=== PATIENT | female | born 1955 | race Caucasian/White ===

== ENCOUNTER 2020-07-26 10:48 | Outpatient (REF) | payer MEDICARE, SELFPAY ==
[2020-07-26 12:30] LABS: Alanine Aminotransferase 20 U/L (0-31); Albumin Level 4.3 g/dL (3.5-5.0); Alkaline Phosphatase 72 U/L (39-117); Anion Gap 11 (12-20); Aspartate Amino Transferase 16 U/L (5-31); Bilirubin Total 0.4 mg/dL (0.0-1.0); Blood Urea Nitrogen 21 mg/dL (9-16); Calcium 9.3 mg/dL (8.4-10.2); Carbon Dioxide 27 mmol/L (22-29); Chloride 107 mmol/L (96-108); Cholesterol 193 mg/dL; Estimated Glomerular Filt Rate > 60; Glucose Fasting 123 mg/dL (60-99); HDL Cholesterol 41 mg/dL; LDL Cholesterol Calculated 105 mg/dl; Potassium 4.5 mmol/L (3.3-5.1); Sodium 140 mmol/L (135-145); Total Protein 7.1 g/dL (6.5-8.0); Triglycerides 239 mg/dL
== END 2020-07-26 10:49 | disposition home or self-care (01) ==
LOC: HO.LAB 10:48
PROVIDERS: PCP Internal Medicine; Visit Provider Internal Medicine
DX: I10 Essential (primary) hypertension (principal); E78.5 Hyperlipidemia, unspecified
CPT/HCPCS: 36415; 80053; 80061

== ENCOUNTER 2020-11-14 08:15 | Outpatient (REF) | payer MEDICARE, SELFPAY ==
[2020-11-14 08:45] LABS: MANUAL DIFF FLAG NO
[2020-11-14 08:49] LABS: Basophils Absolute Auto 0.1 X10*3/uL (0.0-0.2); Eosinophils Absolute Auto 0.6 X10*3/uL (0.0-0.4); Eosinophils Percent Auto 7.3 % (0-4); Hematocrit 39.3 % (37-47); Hemoglobin 12.8 g/dl (12.0-16.0); Imm Gran Abs Auto 0.01 X10*3/uL (0.00-0.03); Imm Gran Pct Auto 0.1 % (0.0-0.4); Lymphocytes Absolute Auto 2.4 X10*3/uL (1.2-4.9); Lymphocytes Percent Auto 29.6 % (20-40); Mean Corpuscular HGB Conc 32.6 g/dl (31.0-35.0); Mean Corpuscular Hemoglobin 28.2 pg (27.0-33.0); Mean Corpuscular Volume 86.6 fL (80-98); Mean Platelet Volume 10.5 fL (9.4-12.3); Monocytes Absolute Auto 0.5 X10*3/uL (0.1-1.2); Monocytes Percent Auto 6.4 % (2-11); Neutrophils Absolute Auto 4.4 X10*3/uL (2.0-8.3); Neutrophils Percent Auto 55.6 % (45-73); Platelet Count 222 X10*3/uL (160-400); Red Blood Count 4.54 X10*6/uL (4.20-5.50); Red Cell Distribution Width 13.3 % (11.0-16.0)
[2020-11-14 09:17] LABS: Alanine Aminotransferase 16 U/L (0-31); Albumin Level 4.2 g/dL (3.5-5.0); Alkaline Phosphatase 69 U/L (39-117); Anion Gap 11 (12-20); Aspartate Amino Transferase 15 U/L (5-31); Bilirubin Total 0.5 mg/dL (0.0-1.0); Blood Urea Nitrogen 21 mg/dL (9-16); Calcium 9.6 mg/dL (8.4-10.2); Carbon Dioxide 25 mmol/L (22-29); Chloride 108 mmol/L (96-108); Cholesterol 162 mg/dL; Estimated Glomerular Filt Rate > 60; Glucose Fasting 118 mg/dL (60-99); HDL Cholesterol 39 mg/dL; LDL Cholesterol Calculated 80 mg/dl; Potassium 4.3 mmol/L (3.3-5.1); Sodium 140 mmol/L (135-145); Triglycerides 219 mg/dL
[2020-11-14 09:44] LABS: Folate 17.2 ng/mL (> or = 4.0); Vitamin B12 840 pg/mL (200-900)
[2020-11-23 17:16] LABS: Vitamin D 25-OH, D2 <4 ng/mL; Vitamin D 25-OH, D3 30 ng/mL; Vitamin D 25-OH, Total 30 ng/mL (30-100)
== END 2020-11-14 08:16 | disposition home or self-care (01) ==
LOC: HO.LAB 08:15
PROVIDERS: PCP Internal Medicine; Visit Provider Internal Medicine
DX: E78.1 Pure hyperglyceridemia (principal); E78.5 Hyperlipidemia, unspecified; E55.9 Vitamin D deficiency, unspecified; E53.8 Deficiency of other specified B group vitamins; I10 Essential (primary) hypertension
CPT/HCPCS: 36415; 80053; 80061; 82306; 82607; 82746; 85025

== ENCOUNTER 2021-01-02 09:10 | Outpatient (REF) | payer MEDICARE, SELFPAY ==
[2021-01-04 16:22] LABS: HPV mRNA E6/E7 rflx Not Detected (Not Detected)
== END 2021-01-02 09:11 | disposition home or self-care (01) ==
LOC: HO.LAB 09:10
PROVIDERS: PCP Internal Medicine; Visit Provider Advanced Practice Midwife
DX: Z01.419 Encounter for gynecological examination (general) (routine) without abnormal findings (principal); Z11.51 Encounter for screening for human papillomavirus (HPV); N88.9 Noninflammatory disorder of cervix uteri, unspecified; N81.9 Female genital prolapse, unspecified; R32 Unspecified urinary incontinence; R15.9 Full incontinence of feces
CPT/HCPCS: 87624; 88142

== ENCOUNTER 2021-02-22 13:43 | Outpatient (REF) | payer MEDICARE, SELFPAY ==
--- NOTE | ~2021-02-22 | MM_ITS ---
EXAMINATION: MM SCREENING DIGITAL BREAST TOMOSYNTHESIS, BILATERAL CLINICAL INFORMATION: Screening. Asymptomatic. The lifetime risk of breast cancer based on the Tyrer-Cuzick Model is 5%. COMPARISON: Mammography: 01/31/2019, 07/17/2017, 04/29/2016 TECHNIQUE: Digital breast tomosynthesis is performed in both the craniocaudal and mediolateral oblique views along with computer-aided detection (CAD). Synthesized 2D images are generated from the tomosynthesis. FINDINGS: There are scattered areas of fibroglandular density (ACR BI-RADS breast composition Category b). There are no significant masses, abnormal calcifications, or other abnormalities. Parenchymal pattern is similar to prior studies. No developing density. There are intramammary nodes again seen bilateral posterior outer breasts. MM/MM tomosynthesis screening BI IMPRESSION: No mammographic evidence of malignancy. ASSESSMENT: BI-RADS 2: Benign RECOMMENDATION: Routine annual mammography screening. This patient's information was entered into a reminder system with a target due date for their next mammogram.
== END 2021-02-22 13:44 | disposition home or self-care (01) ==
LOC: HO.MAMMO 13:43
PROVIDERS: PCP Internal Medicine; Visit Provider Advanced Practice Midwife
DX: Z12.31 Encounter for screening mammogram for malignant neoplasm of breast (principal)
CPT/HCPCS: 77063; 77067

== ENCOUNTER 2021-03-18 13:24 | Outpatient (REF) | payer MEDICARE, SELFPAY | END 2021-03-18 13:25 | disposition home or self-care (01) | LOC: HO.HMGCLDS 13:24 | PROVIDERS: PCP Internal Medicine; Visit Provider Internal Medicine | DX: Z20.822 Contact with and (suspected) exposure to COVID-19 (principal) | CPT/HCPCS: C9803; U0003; U0005 ==

== ENCOUNTER 2021-04-15 11:51 | Outpatient (REF) | payer MEDICARE, SELFPAY ==
[2021-04-15 13:53] LABS: Alanine Aminotransferase 22 U/L (0-31); Albumin Level 4.4 g/dL (3.5-5.0); Alkaline Phosphatase 71 U/L (39-117); Anion Gap 14 (12-20); Aspartate Amino Transferase 19 U/L (5-31); Bilirubin Total 0.5 mg/dL (0.0-1.0); Blood Urea Nitrogen 23 mg/dL (9-16); Calcium 10.5 mg/dL (8.4-10.2); Carbon Dioxide 26 mmol/L (22-29); Chloride 104 mmol/L (96-108); Cholesterol 184 mg/dL; Estimated Glomerular Filt Rate > 60; Glucose Fasting 99 mg/dL (60-99); HDL Cholesterol 40 mg/dL; LDL Cholesterol Calculated 103 mg/dl; Potassium 4.7 mmol/L (3.3-5.1); Sodium 139 mmol/L (135-145); Total Protein 7.6 g/dL (6.5-8.0); Triglycerides 209 mg/dL
[2021-04-15 14:21] LABS: Vitamin B12 1132 pg/mL (200-900)
[2021-04-18 15:01] LABS: Vitamin D 25-OH, D2 <4 ng/mL; Vitamin D 25-OH, D3 33 ng/mL; Vitamin D 25-OH, Total 33 ng/mL (30-100)
== END 2021-04-15 11:52 | disposition home or self-care (01) ==
LOC: HO.LAB 11:51
PROVIDERS: PCP Internal Medicine; Visit Provider Internal Medicine
DX: E53.8 Deficiency of other specified B group vitamins (principal); E78.5 Hyperlipidemia, unspecified; E55.9 Vitamin D deficiency, unspecified; R73.02 Impaired glucose tolerance (oral)
CPT/HCPCS: 36415; 80053; 80061; 82306; 82607; 82746

== ENCOUNTER 2021-05-28 12:13 | Outpatient (REF) | payer MEDICARE, SELFPAY ==
[2021-05-28 13:41] LABS: Alanine Aminotransferase 21 U/L (0-31); Albumin Level 4.3 g/dL (3.5-5.0); Alkaline Phosphatase 65 U/L (39-117); Anion Gap 10 (12-20); Aspartate Amino Transferase 15 U/L (5-31); Bilirubin Total 0.5 mg/dL (0.0-1.0); Blood Urea Nitrogen 14 mg/dL (9-16); Calcium 10.4 mg/dL (8.4-10.2); Carbon Dioxide 26 mmol/L (22-29); Chloride 107 mmol/L (96-108); Estimated Glomerular Filt Rate > 60; Glucose Fasting 94 mg/dL (60-99); Potassium 4.4 mmol/L (3.3-5.1); Sodium 139 mmol/L (135-145); Total Protein 7.6 g/dL (6.5-8.0)
[2021-05-29 13:50] LABS: Calcium (PTHI) 9.6 mg/dL (8.6-10.4); PTHI 70 pg/mL (14-64)
[2021-05-30 18:21] LABS: Calcium, Random Urine 5.8 mg/dL
== END 2021-05-28 12:14 | disposition home or self-care (01) ==
LOC: HO.LAB 12:13
PROVIDERS: PCP Internal Medicine; Visit Provider Internal Medicine
DX: E83.52 Hypercalcemia (principal); R73.02 Impaired glucose tolerance (oral)
CPT/HCPCS: 36415; 80053; 82310; 82330; 83970

== ENCOUNTER → 2021-09-12 08:43 | Outpatient (BNVA) | payer MEDICARE, SELFPAY | PROVIDERS: PCP Internal Medicine; Visit Provider Internal Medicine Endocrinology, Diabetes & Metabolism | DX: E21.3 Hyperparathyroidism, unspecified (principal) | CPT/HCPCS: 99202 ==

== ENCOUNTER 2021-10-24 09:58 | Outpatient (REF) | payer MEDICARE, SELFPAY ==
[2021-10-24 11:00] LABS: Albumin Level 4.3 g/dL (3.5-5.0); Calcium 9.7 mg/dL (8.4-10.2); Cholesterol 192 mg/dL; HDL Cholesterol 38 mg/dL; LDL Cholesterol Calculated 109 mg/dl; Triglycerides 226 mg/dL
[2021-10-25 13:56] LABS: PTHI 87 pg/mL (16-77)
== END 2021-10-24 09:59 | disposition home or self-care (01) ==
LOC: HO.LAB 09:58
PROVIDERS: Internal Medicine Endocrinology, Diabetes & Metabolism; PCP Internal Medicine; Visit Provider Internal Medicine
DX: E21.3 Hyperparathyroidism, unspecified (principal); E78.5 Hyperlipidemia, unspecified
CPT/HCPCS: 36415; 80061; 82040; 82310; 83970

== ENCOUNTER 2022-03-11 10:14 | Outpatient (REF) | payer MEDICARE, SELFPAY ==
--- NOTE | ~2022-03-11 | MM_ITS ---
EXAMINATION: MM SCREENING DIGITAL BREAST TOMOSYNTHESIS, BILATERAL CLINICAL INFORMATION: Screening. Asymptomatic. The lifetime risk of breast cancer based on the Tyrer-Cuzick Model is 4.1%. COMPARISON: Mammography: February 22, 2021 and studies dating back to April 27, 2015 TECHNIQUE: Digital breast tomosynthesis is performed in both the craniocaudal and mediolateral oblique views along with computer-aided detection (CAD). Synthesized 2D images are generated from the tomosynthesis. FINDINGS: There are scattered areas of fibroglandular density (ACR BI-RADS breast composition Category b). There are no significant masses, abnormal calcifications, or other abnormalities. MM/MM tomosynthesis screening BI IMPRESSION: No significant changes from prior exam. ASSESSMENT: BI-RADS 1: Negative RECOMMENDATION: Routine annual mammography screening. This patient's information was entered into a reminder system with a target due date for their next mammogram.
== END 2022-03-11 10:15 | disposition home or self-care (01) ==
LOC: HO.MAMMO 10:14
PROVIDERS: PCP Internal Medicine; Visit Provider Advanced Practice Midwife
DX: Z12.31 Encounter for screening mammogram for malignant neoplasm of breast (principal)
CPT/HCPCS: 77063; 77067

== ENCOUNTER 2022-03-19 10:25 | Outpatient (REF) | payer MEDICARE, SELFPAY ==
[2022-03-19 11:15] LABS: Albumin Level 4.2 g/dL (3.5-5.0); Calcium 9.9 mg/dL (8.4-10.2)
[2022-03-19 11:20] LABS: Alanine Aminotransferase 24 U/L (0-31); Albumin Level 4.3 g/dL (3.5-5.0); Alkaline Phosphatase 74 U/L (39-117); Anion Gap 14 (12-20); Aspartate Amino Transferase 19 U/L (5-31); Bilirubin Total 0.5 mg/dL (0.0-1.0); Blood Urea Nitrogen 18 mg/dL (9-16); Calcium 9.9 mg/dL (8.4-10.2); Carbon Dioxide 27 mmol/L (22-29); Chloride 104 mmol/L (96-108); Cholesterol 172 mg/dL; Estimated Glomerular Filt Rate > 60; Glucose Fasting 123 mg/dL (60-99); HDL Cholesterol 41 mg/dL; LDL Cholesterol Calculated 87 mg/dl; Potassium 4.7 mmol/L (3.3-5.1); Sodium 140 mmol/L (135-145); Total Protein 7.3 g/dL (6.5-8.0); Triglycerides 224 mg/dL
[2022-03-19 11:32] LABS: Vitamin D 25-OH Total 33.5 ng/mL (>30)
[2022-03-19 12:08] LABS: Folate 14.2 ng/mL (> or = 4.0); Vitamin B12 > 2000 pg/mL (200-900)
[2022-03-20 15:57] LABS: Calcium (PTHI) 9.5 mg/dL (8.6-10.4); PTHI 50 pg/mL (16-77)
[2022-03-21 12:21] LABS: Calcium, Ionized 5.1 mg/dL (4.8-5.6)
== END 2022-03-19 10:26 | disposition home or self-care (01) ==
LOC: HO.LAB 10:25
PROVIDERS: PCP Internal Medicine; Visit Provider Internal Medicine
DX: E21.3 Hyperparathyroidism, unspecified (principal); E55.9 Vitamin D deficiency, unspecified; E53.8 Deficiency of other specified B group vitamins; E78.5 Hyperlipidemia, unspecified; E78.1 Pure hyperglyceridemia
CPT/HCPCS: 36415; 80053; 80061; 82040; 82306; 82310; 82330; 82607; 82746; 83970

== ENCOUNTER 2022-04-28 10:06 | Outpatient (REF) | payer MEDICARE, SELFPAY ==
--- NOTE | ~2022-04-28 | US_ITS ---
EXAMINATION: US RETROPERITONEAL COMPLETE (RENAL) CLINICAL INFORMATION: Microscopic hematuria. COMPARISON: Ultrasound kidneys and bladder 03/05/2019. CT abdomen and pelvis 02/02/2017. Renal ultrasound 02/19/2016. TECHNIQUE: Real-time imaging of the kidneys and bladder. FINDINGS: RIGHT KIDNEY: 10.8 x 4.7 x 4.3 cm (SAG x AP x TRV). The kidney is normal in size, contour, and echogenicity. Renal cortical thickness is normal. No renal calculi or hydronephrosis. At the upper pole, a 4.3 cm in maximal diameter anechoic, simple cyst is seen. LEFT KIDNEY: 11.4 x 5.5 x 4.6 cm (SAG x AP x TRV). The kidney is normal in size, contour, and echogenicity. Renal cortical thickness is normal. No renal calculi or hydronephrosis. At the interpolar aspect, 3.7 cm, 2.6 cm and 1.2 cm in maximal diameter anechoic, simple cysts are seen. At the lower pole, a 3.4 cm in maximal diameter simple cyst is seen. BLADDER: Well distended. Bilateral ureteral jets are demonstrated. Prevoid bladder volume is 123 mL. Postvoid bladder volume is 5 mL. There are mild posterior bladder wall trabeculations. US/US retroperitoneal comp IMPRESSION: 1. No renal mass, calculus or hydronephrosis is seen bilaterally. 2. There are multiple benign, simple bilateral renal cysts, for which no imaging follow-up is recommended. 3. There is mild bladder wall hypertrophy.
== END 2022-04-28 10:07 | disposition home or self-care (01) ==
LOC: HO.HMGCX 10:06
PROVIDERS: PCP Internal Medicine; Visit Provider Urology
DX: R31.29 Other microscopic hematuria (principal)
CPT/HCPCS: 76770

== ENCOUNTER 2022-06-09 12:11 | Emergency (ER) | payer MEDICARE, SELFPAY ==
--- NOTE | ~2022-06-09 | XR_ITS ---
EXAMINATION: XR CHEST 2 VIEWS CLINICAL INFORMATION: Dry cough. COMPARISON: None. TECHNIQUE: Frontal and lateral views of the chest were obtained. FINDINGS: The heart, great vessels, pulmonary vasculature and mediastinum are normal. The lungs show no focal infiltrate, effusion or pneumothorax. There is mild elevation of the right hemidiaphragm. There is no acute osseous abnormality. There is multi-level thoracic spondylosis. XR/XR chest 2V IMPRESSION: No active cardiopulmonary disease.
--- NOTE | 2022-06-09 12:16 | ED.GENADULT ---
HPI - General Adult General Chief complaint: General Medical Stated complaint: Problems w blood sugar sent by PCP Time Seen by Provider: 06/09/22 14:35 Source: patient Mode of arrival: ambulatory Limitations: no limitations History of Present Illness HPI narrative: 67 yo with history of HTN, hypertriglyceridemia, anxiety, B12 deficiency, hyperparathyroidism, and impaired glucose tolerated who is coming in for evaluation of varying blood sugars at home. She reports sugars yesterday were 70s to 220s. Today was 141. She is not diabetic and does not take medications for DM. She reports some fatigue and feeling run down lately. She denies polyuria or polydipsia. She is not diabetic and does not take medications for DM. She deneis chest pain, SOB, N/V/D and abdominal pain. MD complaint: varying glucose at home Onset (ago): day(s) Radiation: non-radiation Severity: mild Pain Consistency: intermittent Relieving factors: none Exacerbating factors: none Associated symptoms: weakness Treatments prior to arrival: none Related Data Home Medications Medication Instructions Recorded Confirmed cholecalciferol (vitamin D3) 50 50 mcg PO DAILY 08/14/20 03/24/22 mcg (2,000 unit) capsule cyanocobalamin (vitamin B-12) 1,000 mcg PO DAILY 08/14/20 03/24/22 1,000 mcg tablet,extended release fluticasone propionate 50 1 spray intranasal DAILY PRN 08/14/20 03/24/22 mcg/actuation nasal spray,suspension Previous Rx's Medication Instructions Recorded lorazepam 0.5 mg tablet 0.5 mg PO DAILY PRN anxiety 30 05/28/21 days #10 tabs albuterol sulfate 90 mcg/actuation 1 inh inhalation QID PRN shortness 01/08/22 aerosol inhaler of breath or wheezing 30 days #6.7 grams albuterol sulfate 90 mcg/actuation 2 puff inhalation Q6H PRN 01/27/22 aerosol inhaler shortness of breath or wheezing #6.7 grams doxycycline hyclate 100 mg capsule 100 mg PO BID 7 days #14 caps 01/27/22 prednisone 20 mg tablet 40 mg PO DAILY 5 days #10 tabs 01/27/22 atorvastatin 10 mg tablet 10 mg PO DAILY 90 days #90 tabs 02/21/22 lisinopril 5 mg tablet 5 mg PO DAILY 90 days #90 tabs 03/24/22 trazodone 50 mg tablet 25 mg PO BEDTIME PRN sleep 30 days 03/24/22 #30 tabs Allergies Allergy/AdvReac Type Severity Reaction Status Date / Time ezetimibe [Zetia] Allergy Intermediate ? memory Verified 06/09/22 12:21 loss ? crestor Allergy Intermediate muscle Uncoded 03/24/22 16:42 cramps Simvastatin Allergy Intermediate myalgias Uncoded 03/24/22 16:42 Lamisil Allergy Mild Rash Uncoded 03/24/22 16:42 Review of Systems Review of Systems: Yes all other systems are reviewed and are negative [facility] Past Medical History Medical History B12 deficiency Hyperparathyroidism Hypertriglyceridemia Hypovitaminosis D Impaired glucose tolerance Polyuria Productive cough Proteinuria URI (upper respiratory infection) Uterine prolapse Surgical History Hx of tubal ligation No pertinent past surgical history Family History Family History Father Arthritis Mother No problems noted. Social History Social History Housing: Apartment Alcohol intake: never Patient Tobacco Use Status: Never used Tobacco Tobacco use type: Cigarette e-Cigarette/Vaping Use: Never Used Second Hand Smoke Exposure: No Advance Directives: No Advance Directives Information Provided: Yes service: No Current occupational status: unemployed Cognitive needs: No Hearing needs: No Vision needs: Yes Physical Exam ED Vital Signs: Vital Signs - 24 hr 06/09/22 12:17 Temperature 97.5 F Pulse Rate 84 Respiratory Rate 16 Blood Pressure 138/75 Pulse Oximetry 97 Oxygen Delivery Method Room Air BMI result Body Mass Index 29.2 Appearance: Alert. Oriented X3. No acute distress. HEENT: normal external inspection Neck: Normal inspection. Neck supple. CVS: Normal heart rate and rhythm. Pulses normal. Respiratory: No respiratory distress. Breath sounds normal. Abdomen: normal inspection Skin: Skin warm and dry. Normal skin color. Normal skin turgor. No rashes. Extremities: No lower extremity edema. Neuro: Oriented X 3 grossly normal, steady gait, normal speech and cognition. Course Course Course Narrative: 67 yo female with history of HTN, hyperparathyroidism, anxiety, hypertriglyceridemia, impaired glucose tolerance who presents to the ER for evaluation of fluctuating glucose levels. Yesterday was in the 70s to 220s. This morning was 141. Told her doctor she has been dizzy and confused lately, increased lethargy. C/o dry cough. PCP told her to come to the ER for evaluation. Reevaluation(s) Reevaluation #1: Labs w/ A1c 6.1%, otherwise unremarkable. Discussed results with patient - will plan to modify diet and f/u with PCP. hold off on starting any medications today. Patient agrees with plan. stable for d/c. Medical Decision Making Differential Diagnosis Differential Diagnoses: The differential diagnosis associated with the presentation includes diabetes, pre-diabetes, dehydration, electrolyte abnormality, insulinoma, impaired glucose tolerance, pancreatic insufficiency Lab Data MDM Lab Attestation statement: I reviewed the patient's lab results. normal CBC. unremarkable CMP. A1c 6.1% 06/09/22 12:52 06/09/22 12:52 Labs: Lab Results 06/09/22 06/09/22 06/09/22 Range/Units 12:52 12:52 12:52 WBC 9.1 (4.8-10.8) X10*3/uL RBC 4.87 (4.20-5.50) X10*6/uL Hgb 13.6 (12.0-16.0) g/dl Hct 41.3 (37.0-47.0) % MCV 84.8 (80.0-98.0) fL MCH 27.9 (27.0-33.0) pg MCHC 32.9 (31.0-35.0) g/dl RDW 13.2 (11.0-16.0) % Plt Count 239 (160-400) X10*3/uL MPV 10.9 (9.4-12.3) fL Immature Gran % (Auto) 0.1 (0.0-0.4) % Neut % (Auto) 61.7 (45-73) % Lymph % (Auto) 26.4 (20-40) % [place] % (Auto) 6.4 (2-11) % Eos % (Auto) 4.6 H (0-4) % Baso % (Auto) 0.8 (0-2) % Lymph # (Auto) 2.4 (1.2-4.9) X10*3/uL [place] # (Auto) 0.6 (0.1-1.2) X10*3/uL Eos # (Auto) 0.4 (0.0-0.4) X10*3/uL Baso # (Auto) 0.1 (0.0-0.2) X10*3/uL Abs Immat Gran (auto) 0.01 (0.00-0.03) X10*3/uL Absolute Neuts (auto) 5.6 (2.0-8.3) x10*3/uL Absolute Nucleated RBC 0.000 (0.0-0.012) X10*3/uL Nucleated RBC % (auto) 0.0 (0.0-0.2) /100WBC Sodium 140 (135-145) mmol/L Potassium 4.4 (3.3-5.1) mmol/L Chloride 108 (96-108) mmol/L Carbon Dioxide 23 (22-29) mmol/L Anion Gap 13 (12-20) BUN 25 H (9-16) mg/dL Creatinine 0.79 (0.5-1.4) mg/dL Estim Creat Clear Calc 68.4 Estimated GFR > 60 Random Glucose 93 (60-115) mg/dL Estimat Average Glucose 128 mg/dL Hemoglobin A1c % 6.1 % Calcium 9.9 (8.4-10.2) mg/dL Magnesium 1.9 (1.6-2.6) mg/dL Total Bilirubin 0.4 (0.0-1.0) mg/dL Direct Bilirubin < 0.2 (0.0-0.5) mg/dL AST 15 (5-31) U/L ALT 15 (0-31) U/L Alkaline Phosphatase 75 (39-117) U/L Total Protein 7.3 (6.5-8.0) g/dL Albumin 4.4 (3.5-5.0) g/dL TSH 0.71 (0.32-4.0) uIU/mL Influenza Type A (PCR) (Negative) Influenza Type B (PCR) (Negative) RSV RNA Qual (PCR) (Negative) SARS-CoV-2 RNA (RT-PCR) (Negative) 06/09/22 Range/Units 12:52 WBC (4.8-10.8) X10*3/uL RBC (4.20-5.50) X10*6/uL Hgb (12.0-16.0) g/dl Hct (37.0-47.0) % MCV (80.0-98.0) fL MCH (27.0-33.0) pg MCHC (31.0-35.0) g/dl RDW (11.0-16.0) % Plt Count (160-400) X10*3/uL MPV (9.4-12.3) fL Immature Gran % (Auto) (0.0-0.4) % Neut % (Auto) (45-73) % Lymph % (Auto) (20-40) % [place] % (Auto) (2-11) % Eos % (Auto) (0-4) % Baso % (Auto) (0-2) % Lymph # (Auto) (1.2-4.9) X10*3/uL [place] # (Auto) (0.1-1.2) X10*3/uL Eos # (Auto) (0.0-0.4) X10*3/uL Baso # (Auto) (0.0-0.2) X10*3/uL Abs Immat Gran (auto) (0.00-0.03) X10*3/uL Absolute Neuts (auto) (2.0-8.3) x10*3/uL Absolute Nucleated RBC (0.0-0.012) X10*3/uL Nucleated RBC % (auto) (0.0-0.2) /100WBC Sodium (135-145) mmol/L Potassium (3.3-5.1) mmol/L Chloride (96-108) mmol/L Carbon Dioxide (22-29) mmol/L Anion Gap (12-20) BUN (9-16) mg/dL Creatinine (0.5-1.4) mg/dL Estim Creat Clear Calc Estimated GFR Random Glucose (60-115) mg/dL Estimat Average Glucose mg/dL Hemoglobin A1c % % Calcium (8.4-10.2) mg/dL Magnesium (1.6-2.6) mg/dL Total Bilirubin (0.0-1.0) mg/dL Direct Bilirubin (0.0-0.5) mg/dL AST (5-31) U/L ALT (0-31) U/L Alkaline Phosphatase (39-117) U/L Total Protein (6.5-8.0) g/dL Albumin (3.5-5.0) g/dL TSH (0.32-4.0) uIU/mL Influenza Type A (PCR) NEGATIVE (Negative) Influenza Type B (PCR) NEGATIVE (Negative) RSV RNA Qual (PCR) NEGATIVE (Negative) SARS-CoV-2 RNA (RT-PCR) NEGATIVE (Negative) Independent Interpretation I performed an independent interpretation of an: Plain X-Ray Interpretation: clear lungs, no pneumonia Radiology Impression Discussion of test interpretation with radiology: I have reviewed the radiologist's reading. Radiologist Impression: XR/XR chest 2V IMPRESSION: No active cardiopulmonary disease.? External Record Review External record reviewed: Office record, Outpatient record and Prior outpatient labs Prescription Management I considered prescription management with: Other (metformin) will defer for now and start with dietary modifiations Chronic Conditions Patient?s care impacted by: Hypertension Critical Care Time Critical Care Time Critical Care Time: No Discharge Plan Discharge Clinical Impression: Prediabetes, Dyslipidemia Patient Disposition: Home, Self-Care Instructions: Prediabetes (ED) Additional Instructions: Your lab workup today was unremarkable. Your glucose was 93. Your hemoglobin A1c was 6.1% which is only slightly higher than normal. Recommend modifying your diet avoid food high in sugar and carbohydrates. Follow up with your doctor for further evaluation and treatment. Prescriptions: No Action lorazepam 0.5 mg tablet 0.5 mg PO DAILY PRN (Reason: anxiety) 30 Days Qty: 10 0RF albuterol sulfate 90 mcg/actuation HFA aerosol inhaler 1 inh inhalation QID PRN (Reason: shortness of breath or wheezing) 30 Days Qty: 6.7 1RF atorvastatin 10 mg tablet 10 mg PO DAILY 90 Days Qty: 90 1RF fluticasone propionate 50 mcg/actuation spray,suspension 1 spray intranasal DAILY PRN cyanocobalamin (vitamin B-12) 1,000 mcg tablet extended release 1,000 mcg PO DAILY cholecalciferol (vitamin D3) 50 mcg (2,000 unit) capsule 50 mcg PO DAILY trazodone 50 mg tablet 25 mg PO BEDTIME PRN (Reason: sleep) 30 Days Qty: 30 0RF lisinopril 5 mg tablet 5 mg PO DAILY 90 Days Qty: 90 1RF doxycycline hyclate 100 mg capsule 100 mg PO BID 7 Days Qty: 14 0RF albuterol sulfate 90 mcg/actuation HFA aerosol inhaler 2 puff inhalation Q6H PRN (Reason: shortness of breath or wheezing) Qty: 6.7 0RF prednisone 20 mg tablet 40 mg PO DAILY 5 Days Qty: 10 0RF Referrals: Jessica Stanton MD [Primary Care Provider] - (A1c 6.1%) Interventions: ED Discharge Assessment Last Done: 06/09/22 14:42 Discharge Date/Time: 06/09/22 14:46
[2022-06-09 12:17] VITALS: BP 138/75; PULSE 84; RESP 16; TEMP 36.4; O2SAT 97; BMI 29.2
[2022-06-09 12:58] LABS: MANUAL DIFF FLAG NO
[2022-06-09 13:01] LABS: Basophils Absolute Auto 0.1 X10*3/uL (0.0-0.2); Basophils Percent Auto 0.8 % (0-2); Eosinophils Absolute Auto 0.4 X10*3/uL (0.0-0.4); Eosinophils Percent Auto 4.6 % (0-4); Hematocrit 41.3 % (37.0-47.0); Hemoglobin 13.6 g/dl (12.0-16.0); Imm Gran Abs Auto 0.01 X10*3/uL (0.00-0.03); Imm Gran Pct Auto 0.1 % (0.0-0.4); Lymphocytes Absolute Auto 2.4 X10*3/uL (1.2-4.9); Lymphocytes Percent Auto 26.4 % (20-40); Mean Corpuscular HGB Conc 32.9 g/dl (31.0-35.0); Mean Corpuscular Hemoglobin 27.9 pg (27.0-33.0); Mean Corpuscular Volume 84.8 fL (80.0-98.0); Mean Platelet Volume 10.9 fL (9.4-12.3); Monocytes Absolute Auto 0.6 X10*3/uL (0.1-1.2); Monocytes Percent Auto 6.4 % (2-11); Neutrophils Absolute Auto 5.6 x10*3/uL (2.0-8.3); Neutrophils Percent Auto 61.7 % (45-73); Platelet Count 239 X10*3/uL (160-400); Red Blood Count 4.87 X10*6/uL (4.20-5.50); Red Cell Distribution Width 13.2 % (11.0-16.0); White Blood Count 9.1 X10*3/uL (4.8-10.8)
[2022-06-09 13:48] LABS: Alanine Aminotransferase 15 U/L (0-31); Albumin Level 4.4 g/dL (3.5-5.0); Alkaline Phosphatase 75 U/L (39-117); Anion Gap 13 (12-20); Aspartate Amino Transferase 15 U/L (5-31); Bilirubin Direct < 0.2 mg/dL (0.0-0.5); Bilirubin Total 0.4 mg/dL (0.0-1.0); Blood Urea Nitrogen 25 mg/dL (9-16); Calcium 9.9 mg/dL (8.4-10.2); Carbon Dioxide 23 mmol/L (22-29); Chloride 108 mmol/L (96-108); Creatinine Clr Calc Pharmacy 68.4; Estimated Glomerular Filt Rate > 60; Glucose Random 93 mg/dL (60-115); Magnesium 1.9 mg/dL (1.6-2.6); Potassium 4.4 mmol/L (3.3-5.1); Sodium 140 mmol/L (135-145); Total Protein 7.3 g/dL (6.5-8.0)
[2022-06-09 13:54] LABS: Influenza A PCR NEGATIVE (Negative); Influenza B PCR NEGATIVE (Negative); Resp Syncy Virus RNA Qual PCR NEGATIVE (Negative); SARS COV2 PCR INHOUSE NEGATIVE (Negative)
[2022-06-09 14:00] LABS: Estimated Average Glucose 128 mg/dL; Hemoglobin A1c % 6.1 %
[2022-06-09 14:02] LABS: TSH reflex Free T4 0.71 uIU/mL (0.32-4.0)
[2022-06-09 14:40] VITALS: BP 141/51; PULSE 62; RESP 16; O2SAT 96
== END 2022-06-09 14:46 | disposition home or self-care (01) ==
PROVIDERS: Physician Assistant; Emergency Provider Emergency Medicine; PCP Internal Medicine
DX: R73.03 Prediabetes (principal); E78.5 Hyperlipidemia, unspecified; Z20.822 Contact with and (suspected) exposure to COVID-19; Z20.828 Contact with and (suspected) exposure to other viral communicable diseases; I10 Essential (primary) hypertension; Z79.899 Other long term (current) drug therapy; Z79.02 Long term (current) use of antithrombotics/antiplatelets
CPT/HCPCS: 0241U; 36415; 71046; 80048; 80076; 83036; 83735; 84443; 85025; 99282; 99283

== ENCOUNTER 2022-08-14 09:36 | Outpatient (REF) | payer MEDICARE, SELFPAY ==
[2022-08-14 11:58] LABS: Alanine Aminotransferase 17 U/L (0-31); Albumin Level 4.2 g/dL (3.5-5.0); Alkaline Phosphatase 67 U/L (39-117); Anion Gap 10 (12-20); Aspartate Amino Transferase 15 U/L (5-31); Bilirubin Total 0.6 mg/dL (0.0-1.0); Blood Urea Nitrogen 20 mg/dL (9-16); Calcium 9.7 mg/dL (8.4-10.2); Carbon Dioxide 28 mmol/L (22-29); Chloride 107 mmol/L (96-108); Cholesterol 194 mg/dL; Estimated Glomerular Filt Rate > 60; Glucose Fasting 119 mg/dL (60-99); HDL Cholesterol 45 mg/dL; LDL Cholesterol Calculated 124 mg/dl; Potassium 4.3 mmol/L (3.3-5.1); Sodium 141 mmol/L (135-145); Triglycerides 126 mg/dL
[2022-08-14 12:00] LABS: Vitamin D 25-OH Total 44.8 ng/mL (>30)
== END 2022-08-14 09:37 | disposition home or self-care (01) ==
LOC: HO.HMGCLDS 09:36
PROVIDERS: PCP Internal Medicine; Visit Provider Internal Medicine
DX: E55.9 Vitamin D deficiency, unspecified (principal); E78.5 Hyperlipidemia, unspecified
CPT/HCPCS: 36415; 80053; 80061; 82306

== ENCOUNTER 2022-09-20 10:45 | Outpatient (REF) | payer MEDICARE, SELFPAY ==
--- NOTE | ~2022-09-20 | XR_ITS ---
EXAMINATION: XR SHOULDER, RIGHT CLINICAL INFORMATION: Pain COMPARISON: None available. TECHNIQUE: AP external rotation, Grashey, scapular Y, and axillary views of the right shoulder. FINDINGS: There is mild loss of right AC and glenohumeral joint space with periarticular spurring. No visible acute fracture, dislocation or subluxation seen. No bony erosive changes. The soft tissues are normal. XR/XR shoulder RT min 2V IMPRESSION: Mild degenerative changes right shoulder joint. No visible acute fracture or dislocation seen. There is no subluxation.
== END 2022-09-20 10:46 | disposition home or self-care (01) ==
LOC: HO.HMGCX 10:45
PROVIDERS: PCP Student in an Organized Health Care Education/Training Program; Visit Provider Nurse Practitioner Family
DX: M25.511 Pain in right shoulder (principal)
CPT/HCPCS: 73030

== ENCOUNTER 2022-09-25 14:18 | Emergency (ER) | payer MEDICARE, SELFPAY ==
[2022-09-25 14:44] VITALS: BP 148/70; PULSE 61; RESP 17; TEMP 36.6; O2SAT 98; BMI 22.9
--- NOTE | 2022-09-25 14:44 | ED_ITS ---
HPI - General Adult General Chief complaint: Extremity Injury, Upper Stated complaint: back pain Time Seen by Provider: 09/25/22 16:30 Source: patient Mode of arrival: ambulatory Limitations: no limitations History of Present Illness HPI narrative: 67-year-old female with hypertension, impaired glucose tolerance, dyslipidemia, anxiety and low vitamin-D here with complaints of right shoulder pain which began after she was in her yard doing yard work and lifting rocks in her garden. She was seen at a walk-in clinic on September 20 and had x-rays of her right shoulder. She was told that this was likely muscular in she was prescribed tizanidine which she has been taking with Motrin and Tylenol with continued symptoms. Patient reports the pain begins in the right side of the neck and radiates down the arm. No associated weakness, numbness or tingling of the extremity. Related Data Home Medications Medication Instructions Recorded Confirmed cholecalciferol (vitamin D3) 50 50 mcg PO DAILY 08/14/20 09/20/22 mcg (2,000 unit) capsule cyanocobalamin (vitamin B-12) 1,000 mcg PO DAILY 08/14/20 09/20/22 1,000 mcg tablet,extended release fluticasone propionate 50 1 spray intranasal DAILY PRN 08/14/20 09/20/22 mcg/actuation nasal spray,suspension Previous Rx's Medication Instructions Recorded lorazepam 0.5 mg tablet 0.5 mg PO DAILY PRN anxiety 30 05/28/21 days #10 tabs albuterol sulfate 90 mcg/actuation 2 puff inhalation Q6H PRN 01/27/22 aerosol inhaler shortness of breath or wheezing #6.7 grams lisinopril 5 mg tablet 5 mg PO DAILY 90 days #90 tabs 03/24/22 trazodone 50 mg tablet 25 mg PO BEDTIME PRN sleep 30 days 03/24/22 #30 tabs atorvastatin 10 mg tablet 10 mg PO DAILY 90 days #90 tabs 08/15/22 tizanidine 4 mg tablet (Zanaflex) 2 mg PO BID PRN muscle spasticity 09/20/22 5 days #5 tabs cyclobenzaprine 10 mg tablet 10 mg PO TID PRN muscle spasm #14 09/25/22 tabs lidocaine 5 % topical patch 1 patch topical DAILY #15 ea 09/25/22 (Lidoderm) oxycodone 5 mg tablet 5 mg PO Q6H PRN pain #10 tabs 09/25/22 prednisone 20 mg tablet 40 mg PO DAILY #10 tabs 09/25/22 Allergies Allergy/AdvReac Type Severity Reaction Status Date / Time ezetimibe [Zetia] Allergy Intermediate ? memory Verified 09/20/22 10:32 loss ? crestor Allergy Intermediate muscle Uncoded 09/20/22 10:32 cramps Simvastatin Allergy Intermediate myalgias Uncoded 09/20/22 10:32 Lamisil Allergy Mild Rash Uncoded 09/20/22 10:32 Review of Systems Review of Systems: Yes all other systems are reviewed and are negative Constitutional: Constitutional: Reports no additional constitutional complaints, Denies body ache(s), Denies chills, Denies fever(s), Denies headache(s) and Denies weakness Eyes: Eyes: Reports no additional eye complaints and Denies change in vision ENT: Reports system reviewed and no additional complaints, except as documented, Denies dizziness, Denies headache(s), Denies nasal congestion, Denies nasal discharge and Denies neck pain Cardiovascular: Cardiovascular: Reports no additional cardiovascular complaints, Denies chest pain, Denies leg edema and Denies dyspnea Respiratory: Respiratory: Reports no additional respiratory complaints, Denies cough and Denies dyspnea Gastrointestinal: Gastrointestinal: Reports no additional gastrointestinal complaints, Denies abdominal pain, Denies diarrhea, Denies nausea and Denies vomiting Genitourinary: Genitourinary: Reports no additional female genitourinary complaints and Denies urinary incontinence Musculoskeletal: Musculoskeletal: Reports no additional musculoskeletal comp laints, Denies back pain, Reports arthralgias, Denies joint swelling, Denies neck pain, Denies numbness and Denies tingling Integumentary/Breasts: Skin/Breast: Reports system reviewed and no additional complaints, except as docu and Denies rash Neurologic: Reports system reviewed and no additional complaints, except as documented, Denies dizziness, Denies headache(s), Denies numbness, Denies tingling and Denies weakness PMFSH Past Medical History Attestation statement: The following information was validated with the patient. Source: old records reviewed and nursing notes reviewed Medical History B12 deficiency Hyperparathyroidism Hypertriglyceridemia Hypovitaminosis D Impaired glucose tolerance Polyuria Productive cough Proteinuria URI (upper respiratory infection) Uterine prolapse Surgical History Hx of tubal ligation No pertinent past surgical history Family History Family History Father Arthritis Mother No problems noted. Social History Social History Housing: Apartment Alcohol intake: never Patient Tobacco Use Status: Never used Tobacco Smoked in Last 30 Days: No e-Cigarette/Vaping Use: Never Used Second Hand Smoke Exposure: No Use of substances other than those prescribed or required for medical reasons: No Advance Directives: No Advance Directives Information Provided: No service: No Current occupational status: unemployed Cognitive needs: No Hearing needs: No Vision needs: Yes Physical Exam ED Vital Signs: Vital Signs - 24 hr 09/25/22 14:44 09/25/22 16:00 Temperature 97.8 F Pulse Rate 61 64 Respiratory Rate 17 18 Blood Pressure 148/70 H Pulse Oximetry 98 98 Oxygen Delivery Method Room Air Room Air BMI result Body Mass Index 22.9 Const General: cooperative, healthy appearing, comfortable and no acute distress Orientation/consciousness: patient oriented x3 Limitations: no limitations HENMT Head: Yes normal to inspection Ears: hearing grossly normal bilaterally Eyes General: appearance normal, both eyes and all related structures Pupils: Equal, round and reactive pupils present Neck Other: On exam there is tenderness to the right trapezius with palpable muscle spasm. There is no midline cervical tenderness, step-offs or deformities. When the trapezius is compressed there is radiation of pain down the right arm. There is full range of motion of the right shoulder. + Spurling's test Pain is worsened with movement at the head. There are distal radial and ulnar pulses on the right upper extremity which are 2+. Neck: Yes normal visual inspection Chest Chest palpation & inspection: normal inspection of the chest Resp Effort & Inspection: normal respiratory effort Auscultation: clear to auscultation bilaterally Cardio Rate: regular rate Rhythm: regular rhythm Peripheral pulses: Peripheral pulses 2+ throughout GI Inspection: Yes normal to inspection Palpation (GI): Soft to palpation and nontender General: Yes no CVA tenderness Back/Spine/Pelvis Back: no CVA tenderness Thoracic/Lumbar Spine: thoracic and lumbar spine normal to inspection Skin General skin exam: no rashes or lesions noted Neuro General: patient oriented x3 and moves all extremities Cranial nerves: Yes CN's II-XII intact bilaterally, Yes Equal, round and reactive pupils present, Yes Bilaterally intact EOM present, Yes Nystagmus not present, Yes Normal facial strength present and Yes Midline tongue present Cognition (Neuro): normal cognition Gait exam (Neuro): Normal gait present Motor exam (neuro): 5/5 motor strength present throughout Sensory Exam: Normal double simultaneous stimulation for sensation Course Course Course Narrative: This is an RME: Additional HPI, ROS, PE not included below will be deferred to primary provider. 67 year old female with PMH of hypertension, right shoulder pain, dyslipidemia, CLARY, and hypertrygliceridemia presents to the ED with right neck pain that radiates to the shoulder for 4 days worsening. Patient's son reports she was lifting rocks in the garden when the pain started. Patient reports she is concerned it is something worse. Patient is currently taking tizanidine for pain and reports it's an 8/10. Denies SOB, CP, chills, or fever. PE: Benign Plan: pain management and EKG Reevaluation(s) Reevaluation #1: EKG non ischemic. Low concern for ACS. Likely cervical radiculopathy. Patient ran out of her tizanidine. We discussed going home with a low-dose of oxycodone. Will add Flexeril, prednisone course, Lidoderm patches. Recommend continuing Motrin and Tylenol as needed. Recommend follow-up outpatient with primary care doctor. Reviewed worrisome signs and symptoms of when to return to the emergency room. Comfortable plan for discharge home. Medications Administered Discontinued Medications Generic Name Dose Route Start Last Admin Trade Name Harpreetq PRN Reason Stop Dose Admin Diazepam 2 mg 09/25/22 14:44 09/25/22 16:40 Diazepam 2 Mg Tablet PO 09/25/22 14:45 2 mg ONCE ONE Administration Ketorolac Tromethamine 30 mg 09/25/22 16:30 09/25/22 16:41 Ketorolac Tromethamine 30 Mg/Ml Vial IM 09/25/22 16:31 30 mg ONCE ONE Administration Lidocaine 2 patch 09/25/22 14:44 09/25/22 16:41 Lidocaine 4 % Patch Adh..Patch TRANSDERMA 09/25/22 14:45 2 patch ONCE ONE Administration Protocol Medical Decision Making Medical Decision Making [facility] Narrative: 67-year-old female [id number] here with right sided neck pain with radiation down the right which began after doing yd work. This has been on lead home with tizanidine, Motrin and Tylenol. Exam is consistent with cervical radiculopathy. Patient has had outpatient shoulder x-rays which showed degenerative changes but no other acute finding. Patient will be provided with Toradol IM, Valium p.o. and Lidoderm patch. Differential Diagnosis Differential Diagnoses: The differential diagnosis associated with the presentation includes Cervical radiculopathy, cervical strain, shoulder strain No red flag symptoms to suggest malignancy, cervical mass, cervical fracture. Independent Interpretation I performed an independent interpretation of an: EKG Interpretation: I independently reviewed the EKG which shows normal sinus rhythm with a rate of 64, normal NH, normal QRS, or QT External Record Review External record reviewed: Outpatient record and Prior outpatient radiology Reviewed urgent care visit notes and outpatient x-ray of the right shoulder Discharge Plan Discharge Clinical Impression: Cervical radiculopathy Patient Disposition: Home, Self-Care Instructions: Cervical Radiculopathy (ED) Additional Instructions: Heat to the area Gentle stretching No heavy lifting for the next 2-3 weeks Take the prednisone as prescribed. Use the muscle relaxant as needed. Continue to supplement with Motrin or Tylenol. Take all of these medications 1st. If you still have pain then you may take the oxycodone as needed. Please follow-up with her primary care doctor Prescriptions: New prednisone 20 mg tablet 40 mg PO DAILY Qty: 10 0RF cyclobenzaprine 10 mg tablet 10 mg PO TID PRN (Reason: muscle spasm) Qty: 14 0RF lidocaine [Lidoderm] 5 % adhesive patch,medicated 1 patch topical DAILY Qty: 15 0RF Rx Instructions: leave on most painful area for up to 12 hrs oxycodone 5 mg tablet 5 mg PO Q6H PRN (Reason: pain) Qty: 10 0RF Rx Instructions: Partial Fill upon patient request. No Action lorazepam 0.5 mg tablet 0.5 mg PO DAILY PRN (Reason: anxiety) 30 Days Qty: 10 0RF atorvastatin 10 mg tablet 10 mg PO DAILY 90 Days Qty: 90 1RF fluticasone propionate 50 mcg/actuation spray,suspension 1 spray intranasal DAILY PRN cyanocobalamin (vitamin B-12) 1,000 mcg tablet extended release 1,000 mcg PO DAILY cholecalciferol (vitamin D3) 50 mcg (2,000 unit) capsule 50 mcg PO DAILY trazodone 50 mg tablet 25 mg PO BEDTIME PRN (Reason: sleep) 30 Days Qty: 30 0RF lisinopril 5 mg tablet 5 mg PO DAILY 90 Days Qty: 90 1RF albuterol sulfate 90 mcg/actuation HFA aerosol inhaler 2 puff inhalation Q6H PRN (Reason: shortness of breath or wheezing) Qty: 6.7 0RF tizanidine [Zanaflex] 4 mg tablet 2 mg PO BID PRN (Reason: muscle spasticity) 5 Days Qty: 5 0RF Referrals: Jessica Stanton MD [Primary Care Provider] - 10 days
--- NOTE | 2022-09-25 14:47 | ECG_ITS ---
Test Reason : r shoulder pain Blood Pressure : / mmHG Vent. Rate : 064 BPM Atrial Rate : 064 BPM P-R Int : 128 ms QRS Dur : 134 ms QT Int : 442 ms P-R-T Axes : 031 072 034 degrees QTc Int : 455 ms Normal sinus rhythm Right bundle branch block Abnormal ECG No previous ECGs available Referred By: Aman Alvarez Electronically Signed By:FRANCESCA LEVINE
[2022-09-25 16:00] VITALS: PULSE 64; RESP 18; O2SAT 98
[2022-09-25] MEDS: diazePAM 2 MG TABLET PO (16:40)
[2022-09-25] MEDS: Lidocaine 4 % Patch ADH..PATCH 2 PATCH TRANSDERMA (16:41)
[2022-09-25] MEDS: Ketorolac Tromethamine 30 MG/ML VIAL IM (16:41)
== END 2022-09-25 17:52 | disposition home or self-care (01) ==
PROVIDERS: Emergency Provider Student in an Organized Health Care Education/Training Program; PCP Internal Medicine
DX: M54.12 Radiculopathy, cervical region (principal); M54.50 Low back pain, unspecified; M25.511 Pain in right shoulder; R07.89 Other chest pain; Z79.899 Other long term (current) drug therapy
CPT/HCPCS: 93005; 96372; 99284; J1885

== ENCOUNTER 2022-10-27 11:00 | Outpatient (RCR) | payer MEDICARE, SELFPAY ==
--- NOTE | 2022-10-17 11:51 | MHC.PT.EP ---
[facility] [place] Office [place] Office [place] Office [address] Jose Guadalupe Nino [address] [phone] F: [phone] F: [phone] F: [phone] F: [phone] Physical Therapy Plan of Care Date of Evaluation: Date of Surgery: n/a Diagnosis: cervical radiculopathy Assessment: Patient is a 67 year old female presenting to PT with complaints of pain in her neck. Pt reports onset of pain began about 1 month ago due to pulling a big root out of her garden. She presents today with impairments in pain, radicular sx, strength, posture, cervical ROM. Pt's current occupation is none, with baseline physical activities including gardening, ADLs, caring for grandkids. Pt expresses fdc goal of reducing pain, and is motivated to work towards this in PT. Clinical presentation today is most consistent with signs and sx associated with possible cervical radiculopathy and pt will benefit from skilled PT 2 week x 4 weeks to address the following problems and impairments noted upon evaluation: pain, radicular sx, strength, posture, cervical ROM. These problems limit the patient with the following functional activities: gardening, ADLs, caring for grandkids. The prescribed treatment plan of care is medically necessary. Co-morbidities of none were identified and taken into considerations of plan of care. Pt was educated on HEP, role of PT, prognosis, POC. Frequency and Duration: The patient will be seen 2 x week x 4 weeks Short Term Goals: Pt will demonstrate improved pain to <5/10 in 2 weeks for improved QOL. Pt will demonstrate improved R shoulder MMT strength to at least 4+/5 in 2 weeks. Pt will demonstrate improved postural awareness by sitting with biomechanically correct posture without cues throughout session to improve overall postural function in 2 weeks. Pt will report centralization of sx in 2 weeks. Skilled Nursing Goals: Pt will demonstrate improved NDI score by 10% in 4 weeks for improved functional mobility. Pt will demonstrate ability to complete ADLS with min to no pain n 4 weeks for return to PLOF. Treatment Plan: Modalities to reduce pain, spasms and effusion. Manual therapy to restore motion and function. Therapeutic exercise to improve strength and flexibility. Neuromuscular re-education for posture and balance. Therapeutic activities to return to functional activities of daily living. Electronically signed by: Agnieszka Burgos, PT, DPT, ATC Please sign and return to therapist. Thank you for your referral.
--- NOTE | 2022-11-28 11:45 | MHC.PT.DC ---
[facility] [place] Office [place] Office [place] Office [address] [facility] [phone] F: [phone] F: [phone] F: [phone] F: [phone] Physical Therapy Discharge Report Diagnosis: cervical radiculopathy Date of Surgery: n/a Date of Evaluation: 10/17/22 Date of Discharge: 11/28/22 Treatments to Date: 2 Cancellations to Date: 2 No Shows to Date: 1 Discharge Status: Patient Elected to Stop Discharge Summary: Pt has not called to be rescheduled in >30 days and therefore to be d/c at this time. Electronically signed by: Agnieszka Burgos, PT, DPT, ATC Please sign and return to therapist. Thank you for your referral.
== END 2022-11-28 11:45 | disposition home or self-care (01) ==
LOC: HO.PTCHIC 11:00
PROVIDERS: PCP Internal Medicine; Visit Provider Physician Assistant
DX: M54.12 Radiculopathy, cervical region (principal)
CPT/HCPCS: 97110; 97140; 97161

== ENCOUNTER 2023-01-15 11:50 | Outpatient (REF) | payer MEDICARE, SELFPAY ==
[2023-01-15 13:52] LABS: Alanine Aminotransferase 16 U/L (0-31); Albumin Level 4.1 g/dL (3.5-5.0); Alkaline Phosphatase 55 U/L (39-117); Anion Gap 10 (12-20); Aspartate Amino Transferase 16 U/L (5-31); Bilirubin Total 0.5 mg/dL (0.0-1.0); Blood Urea Nitrogen 21 mg/dL (9-16); Calcium 9.6 mg/dL (8.4-10.2); Carbon Dioxide 26 mmol/L (22-29); Chloride 108 mmol/L (96-108); Cholesterol 170 mg/dL (<200); Estimated Glomerular Filt Rate > 60; Glucose Fasting 104 mg/dL (60-99); HDL Cholesterol 46 mg/dL (>40); LDL Cholesterol Calculated 95 mg/dL (<100); Potassium 4.2 mmol/L (3.3-5.1); Sodium 140 mmol/L (135-145); Total Protein 7.1 g/dL (6.5-8.0); Triglycerides 145 mg/dL (<150)
[2023-01-15 14:17] LABS: Vitamin D 25-OH Total 29.6 ng/mL (>30)
[2023-01-15 14:41] LABS: Vitamin B12 794 pg/mL (200-900)
== END 2023-01-15 11:51 | disposition home or self-care (01) ==
LOC: HO.HMGCLDS 11:50
PROVIDERS: PCP Internal Medicine; Visit Provider Internal Medicine
DX: E53.8 Deficiency of other specified B group vitamins (principal); R73.02 Impaired glucose tolerance (oral); E78.5 Hyperlipidemia, unspecified; E55.9 Vitamin D deficiency, unspecified
CPT/HCPCS: 36415; 80053; 80061; 82306; 82607; 82746

== ENCOUNTER 2023-01-20 09:47 | Outpatient (AMB) | payer MEDICARE, SELFPAY ==
[2023-01-20 09:59] VITALS: BP 144/78; PULSE 65; O2SAT 98; BMI 23.3
--- NOTE | 2023-01-20 09:59 | MHC.PC.OV ---
Vital Signs 01/20/23 09:59 01/20/23 11:05 Height 5 ft 10 in Weight 162 lb 8 oz BMI 23.3 BP 144/78 H 145/80 H Blood Pressure Location Lt brachial Lt brachial Position Sitting Sitting Pulse 65 Pulse Source Pulse Oximeter Pulse Oximetry (%) 98 Oxygen Delivery Method Room Air Intake Visit Reasons: bp,lipids Intake Note: Patient is here to follow up on BP and lipids. [employer] Installation Supervisor Required: No Accompanied by: Self / Same As Patient Allergies ezetimibe [Zetia] Allergy (Intermediate, Verified 01/20/23 10:03) ? memory loss ? crestor Allergy (Intermediate, Uncoded 01/20/23 10:03) muscle cramps Simvastatin Allergy (Intermediate, Uncoded 01/20/23 10:03) myalgias Lamisil Allergy (Mild, Uncoded 01/20/23 10:03) Rash Medication List - Last Reconciled 01/20/23 by Jessica Smiley MD albuterol sulfate 90 mcg/actuation 2 puffs inhalation Q6H PRN atorvastatin 10 mg PO DAILY 90 days cholecalciferol (vitamin D3) 50 mcg PO DAILY cyanocobalamin (vitamin B-12) ER 1,000 mcg PO DAILY dexamethasone 4 mg PO DAILY fluticasone propionate 50 mcg/actuation 1 spray intranasal DAILY PRN lidocaine 5% (Lidoderm) 1 patch topical DAILY lisinopril 5 mg PO DAILY 90 days lorazepam 0.5 mg PO DAILY PRN 30 days Tobacco use date assessed: 10/01/22 Fall risk assessment: No Falls in past year Last assessed Fall Risk: 01/20/23 Dental Screening Dental Screen Date: 01/20/23 Did you have a dental visit in the last 12 months?: Yes Did you have a dental problem in the last 6 months where you did not have access to dental care?: No Was dental information given to patient?: No ([place] HPI HPI Comments History of Present Illness Details This is a 67-year-old female with hypertension, dyslipidemia, impaired glucose tolerance and low vitamin-D that comes today for follow-up on her conditions. Blood pressure elevated today and I will increase lisinopril from 5 mg to 10 mg. Blood pressure will be recheck in 3 weeks by nurse navigator. Last cholesterol was well control. On vitamin-D supplements for low vitamin-D. Blood glucose has markedly improved and she denies any polyuria or polydipsia. Complains of occasional wheezing and I will refill the inhaler. Also has some allergic rhinitis and I will prescribe antihistamines as well as refill Flonase. [facility] Medical History B12 deficiency Hyperparathyroidism Hypertriglyceridemia Hypovitaminosis D Impaired glucose tolerance Polyuria Productive cough Proteinuria URI (upper respiratory infection) Uterine prolapse Surgical History Hx of tubal ligation No pertinent past surgical history Family History Father Arthritis Mother No problems noted. Social History Housing: Apartment Alcohol intake: never Patient Tobacco Use Status: Never used Tobacco e-Cigarette/Vaping Use: Never Used Second Hand Smoke Exposure: No service: No Current occupational status: unemployed Cognitive needs: No Hearing needs: No Vision needs: Yes Female Reproductive History Menstrual Age of Menarche: 12 Questionnaire Thrive Questionnaire Date Thrive assessed: 08/21/22 CLARY-7 AMB Questionnaire CLARY-7 Date CLARY - 7 assessed: 08/21/22 Source: Developed by Drs. Julio Álvarez, Fernanda Lugo, Patrick Fontana and colleagues, with an educational saul from [employer]. Review of Systems Const All systems reviewed & are unremarkable except as noted in HPI and below Eyes Reports no additional complaints, Denies change in vision and Denies other visual disturbances Card Denies chest pain at rest, Denies chest pain with activity, Denies edema, Denies irregular heart rhythm, Denies claudication, Reports dyspnea, Reports dyspnea on exertion, Denies orthopnea, Denies paroxysmal nocturnal dyspnea and Denies slow heart rate Resp Denies cough, Reports dyspnea, Reports dyspnea on exertion and Reports wheezing GI Denies abdominal pain, Denies change in bowel habits, Denies excessive flatus, Denies nausea and Denies vomiting Denies urinary incontinence, Denies urinary hesitancy and Denies urinary urgency Musc Denies abnormal gait, Denies atrophy, Denies deformity and Denies limited range of motion Skin/Breast Denies bleeding lesions, Denies changing lesions and Denies rash Neuro Denies abnormal gait and Denies lack of coordination Aller/Immun Reports wheezing Physical exam (Primary Care) Vital Signs: Last Vital Signs Pulse 65 01/20/23 09:59 BP 144/78 H 01/20/23 09:59 Pulse Ox 98 01/20/23 09:59 Oxygen Delivery Method Room Air 01/20/23 09:59 BMI result Body Mass Index 23.3 Tobacco/Smoking Status: Tobacco use Status Tobacco use date assessed 10/01/22 01/20/23 10:07 Patient Tobacco Use Status Never used Tobacco 01/20/23 10:07 Tobacco use type 09/30/22 09:17 e-Cigarette/Vaping Use Never Used 01/20/23 10:07 Thrive Assessment: Date of Thrive Assessment Date Thrive assessed 08/21/22 01/20/23 10:07 Eyes General: appearance normal, both eyes and all related structures Eyelids: Yes eyelids normal Conjunctivae: conjunctivae normal Neck Neck: Yes normal visual inspection and Yes supple Resp Effort & Inspection: normal respiratory effort Auscultation: wheezes Cardio Jugular venous distension: no JVD Rate: regular rate Rhythm: regular rhythm Heart sounds: S1 normal heart sound present and S2 normal heart sound present Extrem General: Yes full ROM Results AMB Hemoglobin A1c AMB Hemoglobin A1c 5.6 % Last Edit by GARY Mendoza on 01/20/23 10:08 Results Reviewed Results Reviewed: Laboratory Last Values Hgb A1c (Clinic) 5.6 % (4.0-6.0) 01/20/23 09:58 Assessment and Plan Assessment & Plan (1) Dyslipidemia: Code(s): E78.5 - Hyperlipidemia, unspecified Plan: Continue statins. (2) Essential hypertension: Code(s): I10 - Essential (primary) hypertension Plan: Increase lisinopril from 5 mg to 10 mg. Recheck blood pressure with nurse navigator in 3 weeks. Blood pressure goal is equal or less than 130/80. (3) Impaired glucose tolerance: Code(s): R73.02 - Impaired glucose tolerance (oral) Plan: Continue low-carbohydrate diet. (4) Hypovitaminosis D: Code(s): E55.9 - Vitamin D deficiency, unspecified Plan: Continue vitamin-D supplement. Orders: Orders AMB Hemoglobin A1c Today Z13.1 - Encounter for screening for diabetes mellitus Medications: New Ventolin HFA 90 mcg/actuation (albuterol sulfate) 2 puffs inhalation Q6H 30 days PRN 18 grams 2RF shortness of breath or wheezing NS lisinopril 10 mg PO DAILY 90 days 90 tabs 1RF cetirizine 10 mg PO DAILY 30 days PRN 30 tabs 1RF allergy symptoms Changed From cholecalciferol (vitamin D3) 50 mcg PO DAILY To cholecalciferol (vitamin D3) 50 mcg PO DAILY 90 days 90 caps 1RF From cyanocobalamin (vitamin B-12) ER 1,000 mcg PO DAILY To cyanocobalamin (vitamin B-12) ER 1,000 mcg PO DAILY 90 days 90 tabs 1RF From fluticasone propionate 50 mcg/actuation 1 spray intranasal DAILY PRN To fluticasone propionate 50 mcg/actuation 1 spray intranasal DAILY 30 days PRN 16 grams 1RF allergy symptoms Refilled atorvastatin 10 mg PO DAILY 90 days 90 tabs 1RF Discontinued lisinopril Discontinued Reason: Patient Completed Course 5 mg PO DAILY 90 days 90 tabs 1RF dexamethasone Discontinued Reason: Patient Completed Course 4 mg PO DAILY 5 tabs 0RF albuterol sulfate 90 mcg/actuation Discontinued Reason: Insurance Denied 2 puffs inhalation Q6H PRN 6.7 grams 0RF shortness of breath or wheezing Coding Level of Care Code Est Pt Level 4 (53846) Diagnoses Dyslipidemia E78.5 Essential hypertension I10 Impaired glucose tolerance R73.02 Hypovitaminosis D E55.9 Time Spent (min) 23
[2023-01-20 11:05] VITALS: BP 145/80
== END 2023-01-20 10:29 | disposition home or self-care (01) ==
PROVIDERS: PCP Internal Medicine; Visit Provider Internal Medicine
DX: E78.5 Hyperlipidemia, unspecified (principal); I10 Essential (primary) hypertension; R73.02 Impaired glucose tolerance (oral); E55.9 Vitamin D deficiency, unspecified; Z13.1 Encounter for screening for diabetes mellitus
CPT/HCPCS: 83036; 99214

== ENCOUNTER 2023-03-04 08:26 | Outpatient (REF) | payer MEDICARE, SELFPAY ==
[2023-03-06 22:48] LABS: HPV mRNA E6/E7 rflx Not Detected (Not Detected)
== END 2023-03-04 08:27 | disposition home or self-care (01) ==
LOC: HO.LNP 08:26
PROVIDERS: PCP Internal Medicine; Visit Provider Advanced Practice Midwife
DX: Z01.419 Encounter for gynecological examination (general) (routine) without abnormal findings (principal); N95.0 Postmenopausal bleeding; R31.9 Hematuria, unspecified; N81.4 Uterovaginal prolapse, unspecified
CPT/HCPCS: 87624; 88142

== ENCOUNTER 2023-03-04 08:26 | Outpatient (AMB) | payer MEDICARE, SELFPAY ==
--- NOTE | 2023-03-04 08:35 | MHC.OFFVIS ---
Intake Vital Signs 03/04/23 08:37 Height 5 ft 4 in Weight 164 lb BMI 28.1 BP 136/62 Intake Visit Reasons: Annual/30 mins Intake Note: was spotting a few months back, has had some incontinence accidents The patient agreed to use of a medical records custodian during this encounter. Scribed for KIMBERLY Tripathi by Joselyn Hennessy, medical records custodian, on 03/04/2023 at 8:48 am EST. Asset Analyst Required: Yes Asset Analyst Language: Kyrgyz Asset Analyst Name: maría [id number] Information Interpreted: non-clinical & clinical Drawer In Jacquard Loom: Drawer In Jacquard Loom Present (Aidyn) Allergies ezetimibe [Zetia] Allergy (Intermediate, Verified 03/04/23 08:41) ? memory loss ? crestor Allergy (Intermediate, Uncoded 03/04/23 08:41) muscle cramps Simvastatin Allergy (Intermediate, Uncoded 03/04/23 08:41) myalgias Lamisil Allergy (Mild, Uncoded 03/04/23 08:41) Rash Is last menstrual period known: No Post menopausal: Yes HPI HPI Comments History of Present Illness Details She is a postmenopausal woman presenting for annual exam. Patient admits she tries to eat a healthy diet including Calcium and Vitamin D. She stays active with exercise. Currently sexually active, occasionally. Denies vaginal itching and irritation. Reports she has episode of VB few months ago and is seeing blood in her urine. Reports she has used a tampon and has seen blood on it over three occasions. History of uterine prolapse, she had a referral last year, was fitted for a pessary at [facility], was uncomfortable with the device and stopped using the device, and did not return for a follow up. Informed me she recently had a pelvic US at [facility], results are not found in the chart. Last pap smear 01/02/21. Last mammogram 03/11/22. UTD on colonoscopy. Stature appears much less then listed height of 5'10 , she is agreeable to be remeasured today. [facility] Medical History PMB (postmenopausal bleeding) Uterine prolapse Hyperparathyroidism Productive cough URI (upper respiratory infection) Polyuria B12 deficiency Hypovitaminosis D Proteinuria Hypertriglyceridemia Impaired glucose tolerance Surgical History Hx of tubal ligation No pertinent past surgical history Family History Father Arthritis Mother No problems noted. Social History Housing: Apartment Alcohol intake: never Patient Tobacco Use Status: Never used Tobacco e-Cigarette/Vaping Use: Never Used Second Hand Smoke Exposure: No service: No Current occupational status: unemployed Cognitive needs: No Hearing needs: No Vision needs: Yes Female Reproductive History Menstrual Age of Menarche: 12 control method: permanent sterilization Total pregnancies: 5 Full term: 3 Number of Living Children: 3 Ab spontaneous: 2 Date of last pap smear: 01/02/21 (negative) Date of Mammogram: 03/11/22 Physical Exam Vital Signs: Last Vital Signs BP 136/62 03/04/23 08:37 BMI result Body Mass Index 28.1 Const General: cooperative, healthy appearing, no acute distress, well developed and alert Orientation/consciousness: patient oriented x3 HEENT Head: Yes normal to inspection Eyes General: appearance normal, both eyes and all related structures Neck Neck: Yes normal visual inspection Thyroid: Thyroid normal Chest Chest palpation & inspection: normal inspection of the chest Breast/axilla inspection: normal inspection of the breasts (no puckering, dimpling, peau de orange, retraction, discharge, masses) Breast/axilla palpation: normal palpation of the breasts Resp Effort & Inspection: normal respiratory effort GI Inspection: Yes normal to inspection Palpation (GI): Soft to palpation (to palpation) Rectal Exam - Female: deferred General: Yes bladder normal to inspection External Female Exam: normal external appearance and normal appearance of the urethra Speculum Exam - Vagina: normal appearance of the vagina, normal palpation and vagina atrophic Speculum Exam - Cervix: normal palpation and Other cervical findings present (excoriation on cervix, prolapse with cervical lesion) Bimanual exam- vagina & uterus: normal palpation, normal palpation and Uterus displaced (prolapse) Bimanual Exam- Adnexa, other: normal adnexae and no masses Skin General skin exam: no rashes or lesions noted Neuro General: patient oriented x3 Cognition (Neuro): normal cognition Extrem General: Yes normal to inspection Psych Attitude: cooperative Thought process: Normal thought process present Assessment & Plan Assessment & Plan (1) Encounter for well woman exam: Code(s): Z01.419 - Encounter for gynecological examination (general) (routine) without abnormal findings Plan: Discussed: Current recommendations for pap smears per ASCCP guidelines. Pap obtained-due to: PMB and cervical erosion. Erosion may be due to the prolapse and will need to follow up for a pessary refitting or other alternative treatment plans with her Urogyn specialist in the near future. Breast awareness and periodic self breast exams. Encouraged yearly mammograms. Mammogram ordered. Maintaining a healthy lifestyle including a well balanced diet including Calcium and Vitamin D and routine exercise. Pt. height was retaken at todays visit. Contact office with any PMB. Sign release records for [facility] pelvic US report. All of her questions and concerns were addressed to the best of my ability. RTO in 1 year for AG. (2) PMB (postmenopausal bleeding): Code(s): N95.0 - Postmenopausal bleeding Plan: Sign a release of records of recent US from [facility]. Discussed EMB; purpose was explained to rule out atypia, hyperplasia and uterine cancer. Reviewed procedure and instructed to take ibuprofen with food 1 hour prior to procedure. Go to ER with any prolonged or heavy bleeding. All of her questions and concerns were addressed to the best of my ability and shared decision making: for EMBx. She is agreeable to plan of care. (3) Blood in urine: Code(s): R31.9 - Hematuria, unspecified Plan: Advised to follow up with renal specialist. (4) Uterine prolapse: Code(s): N81.4 - Uterovaginal prolapse, unspecified Plan: Advised to return to UroGyn regarding fitting for a pessary and consult for possible alternative treatments incl surgical. Orders: Orders MM tomosynthesis screening BI Today Z12.31 - Encounter for screening mammogram for malignant neoplasm of breast Pap Smear Today N95.0 - Postmenopausal bleeding Coding Level of Care Code Est Pt Prev Care >65y(29706) Diagnoses Encounter for well woman exam Z01.419 PMB (postmenopausal bleeding) N95.0 Blood in urine R31.9 Uterine prolapse N81.4
[2023-03-04 08:37] VITALS: BP 136/62; BMI 28.1
== END 2023-03-04 09:29 | disposition home or self-care (01) ==
LOC: HO.HWS 08:26
PROVIDERS: PCP Internal Medicine; Visit Provider Advanced Practice Midwife
DX: Z01.419 Encounter for gynecological examination (general) (routine) without abnormal findings (principal); N95.0 Postmenopausal bleeding; R31.9 Hematuria, unspecified; N81.4 Uterovaginal prolapse, unspecified
CPT/HCPCS: 99397

== ENCOUNTER 2023-04-15 15:20 | Outpatient (AMB) | payer MEDICARE, SELFPAY ==
--- NOTE | 2023-04-15 15:29 | MHC.OFFWIV ---
Intake Vital Signs 04/15/23 15:31 Height 5 ft 4 in Weight 166 lb BMI 28.5 BP 140/70 H Blood Pressure Location Lt brachial Position Sitting Pulse 79 Pulse Source Pulse Oximeter Temp 97.9 F Temp Source Temporal Artery Scan Pulse Oximetry (%) 97 Oxygen Delivery Method Room Air Intake Visit Reasons: EP sore throat losing voice masked in lobby Intake Note: pt is here for c.o sore throat and loss of voice, dizziness Patient Tobacco Use Status: Never used Tobacco Allergies ezetimibe [Zetia] Allergy (Intermediate, Verified 04/15/23 15:31) ? memory loss ? crestor Allergy (Intermediate, Uncoded 03/04/23 08:41) muscle cramps Simvastatin Allergy (Intermediate, Uncoded 03/04/23 08:41) myalgias Lamisil Allergy (Mild, Uncoded 03/04/23 08:41) Rash Medication List - Last Reconciled 04/15/23 by Karma Dale PA-C albuterol sulfate 90 mcg/actuation 1 inh inhalation QID PRN atorvastatin 10 mg PO DAILY 90 days cetirizine 10 mg PO DAILY PRN 30 days cholecalciferol (vitamin D3) 50 mcg PO DAILY 90 days cyanocobalamin (vitamin B-12) ER 1,000 mcg PO DAILY 90 days fluticasone propionate 50 mcg/actuation 1 spray intranasal DAILY PRN 30 days lidocaine 5% (Lidoderm) 1 patch topical DAILY lisinopril 10 mg PO DAILY 90 days magnesium 250 mg PO DAILY prednisone 40 mg (2 x 20 mg) PO DAILY 4 days Ventolin HFA 90 mcg/actuation (albuterol sulfate) 2 puffs inhalation Q6H PRN 30 days NS vitamin E (dl, acetate) 45 mg PO DAILY Do you need a note to return to daycare/school/sports/work: Yes HPI HPI Comments History of Present Illness Details She presents to office with cold symptoms x 1 week Over the weekend she she had + sore throat and lost voice Throat causes a lot of cough + phlegm. No CP or soB No fever or chills + fatigue and intermittent dizziness No ear pain + runny nose She tried Ibuprofen, tylenol without relief Also tried an OTC syrup for throat Pain 0/10 throat Lost voice She did covid swab a few days ago at her house [facility] Medical History PMB (postmenopausal bleeding) Uterine prolapse Hyperparathyroidism Productive cough URI (upper respiratory infection) Polyuria B12 deficiency Hypovitaminosis D Proteinuria Hypertriglyceridemia Impaired glucose tolerance Surgical History Hx of tubal ligation No pertinent past surgical history Family History Father Arthritis Mother No problems noted. Social History Housing: Apartment Alcohol intake: never Patient Tobacco Use Status: Never used Tobacco e-Cigarette/Vaping Use: Never Used Second Hand Smoke Exposure: No service: No Current occupational status: unemployed Cognitive needs: No Hearing needs: No Vision needs: Yes Female Reproductive History Menstrual Age of Menarche: 12 Review of Systems Const Denies chills, Denies fatigue and Denies fever(s) Eyes Denies change in vision ENT Denies sinus pain and Reports sore throat (no pain but lost voice) Card Denies chest pain and Denies dyspnea Resp Reports cough and Denies dyspnea Endo Denies fatigue Physical Exam Vital Signs: Last Vital Signs Temp 97.9 F 04/15/23 15:31 Pulse 79 04/15/23 15:31 BP 140/70 H 04/15/23 15:31 Pulse Ox 97 04/15/23 15:31 Oxygen Delivery Method Room Air 04/15/23 15:31 BMI result Body Mass Index 28.5 General: Non-toxic, NAD. Speaking full sentences. Skin: Warm dry throughout Eye: EOMI Lymph: No lymphadenopathy HENT: Airway patent. Uvula midline. + minimal pharyngeal erythema without exudates or edema. No TRAINING AND DEVELOPMENT PROFESSIONAL. Bilateral canals clear. TM non-erythematous, non-bulging. No TM perforation or hemotympanum noted. Respiratory: CTA bilaterally. No wheezes, rales or rhonchi Cardiac: RRR. No murmur MSK: Full ROM extremities. Neurology: A/O. No aphasia or facial droop. Gait without abnormality Psych: Good mood and affect Results AMB Rapid Strep AMB Rapid Strep Negative Last Edit by Wyatt Ocampo CMA on 04/15/23 15:42 Results Reviewed Results Reviewed: Laboratory Last Values Strep Scn Rapid Clinic Negative 04/15/23 15:40 Assessment & Plan Assessment & Plan (1) Laryngitis: Code(s): J04.0 - Acute laryngitis (2) Cough: Code(s): R05.9 - Cough, unspecified Qualifiers: Cough type: acute Qualified Code(s): R05.1 - Acute cough Plan Patient seen and evaluated. Streo negative COVID/Flu/RSV ordered and obtained Discussed since lung CTA and laryngitis preent, symptoms consistent with viral illness Fluids, rest, tylenol Prednisone for cough/laryngitis Albuterol refill provided per pt request. Patient gave verbal understanding and had no additional questions or concerns at time of discharge All questions answered Orders: Orders AMB Rapid Strep Screen Today Z13.9 - Encounter for screening, unspecified SARS-CoV2/FLU/RSV Today J04.0 - Acute laryngitis, R05.9 - Cough, unspecified Medications: New albuterol sulfate 90 mcg/actuation 1 inh inhalation QID PRN 6.7 grams 0RF shortness of breath or wheezing J04.0 - Acute laryngitis, R05.9 - Cough, unspecified prednisone 40 mg (2 x 20 mg) PO DAILY 8 tabs 0RF 4 days J04.0 - Acute laryngitis Coding Level of Care Code Est Pt Level 3 (25012) Diagnoses Laryngitis J04.0 Acute cough R05.1 Cough type: acute
[2023-04-15 15:31] VITALS: BP 140/70; PULSE 79; TEMP 36.6; O2SAT 97; BMI 28.5
== END 2023-04-15 16:28 | disposition home or self-care (01) ==
PROVIDERS: PCP Internal Medicine; Visit Provider Physician Assistant
DX: J02.9 Acute pharyngitis, unspecified (principal)
CPT/HCPCS: 87880; 99213

== ENCOUNTER 2023-04-15 16:45 | Outpatient (REF) | payer MEDICARE, SELFPAY ==
[2023-04-16 13:33] LABS: Influenza A PCR NEGATIVE (Negative); Influenza B PCR NEGATIVE (Negative); Resp Syncy Virus RNA Qual PCR NEGATIVE (Negative); SARS COV2 PCR INHOUSE NEGATIVE (Negative)
== END 2023-04-15 16:46 | disposition home or self-care (01) ==
LOC: HO.LAB 16:45
PROVIDERS: Visit Provider Physician Assistant
DX: Z11.52 Encounter for screening for COVID-19 (principal); Z20.822 Contact with and (suspected) exposure to COVID-19; J04.0 Acute laryngitis; R05.9 Cough, unspecified
CPT/HCPCS: 0241U

== ENCOUNTER 2023-04-22 07:59 | Outpatient (AMB) | payer MEDICARE, SELFPAY ==
--- NOTE | 2023-04-22 08:05 | MHC.OFFVIS ---
Intake Vital Signs 04/22/23 08:06 Height 5 ft 4 in Weight 166 lb BMI 28.5 BP 120/60 Intake Visit Reasons: EMB/45 min Hospital Chief Executive Officer Required: No Information Interpreted: non-clinical & clinical Field Instructor: Field Instructor Present (Sallie) Allergies ezetimibe [Zetia] Allergy (Intermediate, Verified 04/22/23 08:06) ? memory loss ? crestor Allergy (Intermediate, Uncoded 03/04/23 08:41) muscle cramps Simvastatin Allergy (Intermediate, Uncoded 03/04/23 08:41) myalgias Lamisil Allergy (Mild, Uncoded 03/04/23 08:41) Rash HPI HPI Comments History of Present Illness Details Patient is here for follow-up with concerns of a possible episode of vaginal bleeding many months ago, no repeat episodes. She has been seen by a urology and nephrology for hematuria, history of renal cyst. Scant blood seen while wiping it was unclear whether this was vaginal verses urinary.. Patient records review where a CT scan at [facility] no evidence of abnormalities in the pelvic region. There were no findings of an ultrasound obtained. [facility] Medical History PMB (postmenopausal bleeding) Uterine prolapse Hyperparathyroidism Productive cough URI (upper respiratory infection) Polyuria B12 deficiency Hypovitaminosis D Proteinuria Hypertriglyceridemia Impaired glucose tolerance Surgical History Hx of tubal ligation No pertinent past surgical history Family History Father Arthritis Mother No problems noted. Social History Housing: Apartment Alcohol intake: never Patient Tobacco Use Status: Never used Tobacco e-Cigarette/Vaping Use: Never Used Second Hand Smoke Exposure: No service: No Current occupational status: unemployed Cognitive needs: No Hearing needs: No Vision needs: Yes Female Reproductive History Menstrual Age of Menarche: 12 Physical Exam Vital Signs: Last Vital Signs BP 120/60 04/22/23 08:06 BMI result Body Mass Index 28.5 Const General: cooperative, healthy appearing, comfortable and no acute distress Psych Affect: normal affect Assessment & Plan Assessment & Plan (1) Blood in urine: Code(s): R31.9 - Hematuria, unspecified Plan Possible vaginal bleeding. Discussed the purpose of an endometrial biopsy to rule out any abnormal cells of the uterine cavity including: Atypia, precancer pre malignancy, malignancy. Advised to obtain the pelvic ultrasound here within the next week and to follow up for the planned EMB pending results. Counseled on preprocedure in anticipatory guidance including: Eating and drinking before the procedure and taking Tylenol 1-2 tablets 1 hour prior to the Procedure. All of her questions and concerns were addressed to the best of my ability and shared decision making. She is agreeable to the plan of care. Patient will be scheduled Orders: Orders US pelvic and transvaginal Today N95.0 - Postmenopausal bleeding Coding Level of Care Code Est Pt Level 2 (78999) Diagnoses Blood in urine R31.9
[2023-04-22 08:06] VITALS: BP 120/60; BMI 28.5
== END 2023-04-22 08:42 | disposition home or self-care (01) ==
LOC: HO.HWS 08:00
PROVIDERS: PCP Internal Medicine; Visit Provider Advanced Practice Midwife
DX: R31.9 Hematuria, unspecified (principal)
CPT/HCPCS: 99212

== ENCOUNTER → 2023-04-22 07:59 | Outpatient (BNVA) | payer MEDICARE, SELFPAY | PROVIDERS: PCP Internal Medicine; Visit Provider Advanced Practice Midwife | DX: R31.9 Hematuria, unspecified (principal) | CPT/HCPCS: 99212 ==

== ENCOUNTER 2023-04-27 10:47 | Outpatient (REF) | payer MEDICARE, SELFPAY ==
--- NOTE | ~2023-04-27 | MM_ITS ---
EXAMINATION: MM SCREENING DIGITAL BREAST TOMOSYNTHESIS, BILATERAL CLINICAL INFORMATION: Screening. Asymptomatic. COMPARISON: Mammography: This study is compared with prior exams dating back to 2016. TECHNIQUE: Digital breast tomosynthesis is performed in both the craniocaudal and mediolateral oblique views along with computer-aided detection (CAD). Synthesized 2D images are generated from the tomosynthesis. FINDINGS: There are scattered areas of fibroglandular density (ACR BI-RADS breast composition Category b). There are no significant masses, abnormal calcifications, or other abnormalities. MM/MM tomosynthesis screening BI IMPRESSION: No mammographic evidence of malignancy. ASSESSMENT: BI-RADS BI-RADS 1 - Negative RECOMMENDATION: Routine annual mammography screening. 1 year F/U This examination should not preclude the clinical evaluation of a suspicious palpable abnormality. This patient's information was entered into a reminder system with a target due date for their next mammogram.
== END 2023-04-27 10:48 | disposition home or self-care (01) ==
LOC: HO.MAMMO 10:47
PROVIDERS: Absent Provider Advanced Practice Midwife; PCP Internal Medicine; Visit Provider Internal Medicine
DX: Z12.31 Encounter for screening mammogram for malignant neoplasm of breast (principal)
CPT/HCPCS: 77063; 77067

== ENCOUNTER → 2023-04-27 11:15 | Outpatient (BNV) | payer MEDICARE, SELFPAY | PROVIDERS: Absent Provider Advanced Practice Midwife; PCP Internal Medicine; Visit Provider Radiology Diagnostic Radiology | DX: Z12.31 Encounter for screening mammogram for malignant neoplasm of breast (principal) | CPT/HCPCS: 77063; 77067 ==

== ENCOUNTER 2023-05-14 13:31 | Outpatient (REF) | payer MEDICARE, SELFPAY ==
--- NOTE | ~2023-05-14 | US_ITS ---
EXAMINATION: US PELVIS CLINICAL INFORMATION: Postmenopausal bleeding. COMPARISON: None available. TECHNIQUE: Ultrasound of the pelvis is performed using both transabdominal and transvaginal transducers along with Doppler. Transvaginal imaging is performed due to inadequate visualization transabdominally. FINDINGS: Uterus: The uterus is anteverted and measures 7.2 x 3.0 x 4.3 cm. The uterus appears normal. No discrete uterine mass. The endometrial stripe measures 6 mm which is abnormal in a patient with postmenopausal bleeding. Nabothian cysts in the cervix. Adnexa: The right ovary measures 1.5 mL and is normal in appearance. The left ovary measures 0.7 mL and is normal in appearance. US/US pelvic and transvaginal IMPRESSION: 6 mm endometrial stripe is considered thickened in the setting of post menopausal bleeding. Gynecology referral and endometrial biopsy are recommended.
== END 2023-05-14 13:32 | disposition home or self-care (01) ==
LOC: HO.US 13:31
PROVIDERS: PCP Internal Medicine; Visit Provider Advanced Practice Midwife
DX: N95.0 Postmenopausal bleeding (principal)
CPT/HCPCS: 76830; 76856

== ENCOUNTER 2023-05-28 10:56 | Outpatient (AMB) | payer MEDICARE, SELFPAY ==
--- NOTE | 2023-05-28 11:02 | A.OFFVIS_ITS ---
Intake Vital Signs 05/28/23 11:03 Height 5 ft 4 in Weight 162 lb BMI 27.8 BP 120/52 L Intake Visit Reasons: Ultrasound results/EMB/Chinese Floor Associate Required: Yes Floor Associate Language: Chinese Floor Associate Name: Charlotte [id number] Information Interpreted: non-clinical & clinical Cisco Network Engineer: Cisco Network Engineer Present (Rony) Accompanied by: Friend Allergies ezetimibe [Zetia] Allergy (Intermediate, Verified 05/28/23 11:11) ? memory loss ? crestor Allergy (Intermediate, Uncoded 05/28/23 11:11) muscle cramps Simvastatin Allergy (Intermediate, Uncoded 05/28/23 11:11) myalgias Lamisil Allergy (Mild, Uncoded 05/28/23 11:11) Rash Is last menstrual period known: No Post menopausal: Yes HPI HPI Comments History of Present Illness Details Patient is here today for an EMB due to postmenopausal bleeding and to review her ultrasound results. She is accompanied by a friend Aphrandaite. [facility] Medical History PMB (postmenopausal bleeding) Uterine prolapse Hyperparathyroidism Productive cough URI (upper respiratory infection) Polyuria B12 deficiency Hypovitaminosis D Proteinuria Hypertriglyceridemia Impaired glucose tolerance Surgical History Hx of tubal ligation No pertinent past surgical history Family History Father Arthritis Mother No problems noted. Social History Housing: Apartment Alcohol intake: never Patient Tobacco Use Status: Never used Tobacco e-Cigarette/Vaping Use: Never Used Second Hand Smoke Exposure: No service: No Current occupational status: unemployed Cognitive needs: No Hearing needs: No Vision needs: Yes Female Reproductive History Menstrual Age of Menarche: 12 control method: permanent sterilization Review of Systems Const All systems reviewed & are unremarkable except as noted in HPI and below Physical Exam Vital Signs: Last Vital Signs BP 120/52 L 05/28/23 11:03 BMI result Body Mass Index 27.8 Const General: cooperative, healthy appearing and no acute distress Orientation/consciousness: patient oriented x3 GI Inspection: Yes normal to inspection Palpation (GI): Soft to palpation and Other GI palpation findings present (Nontender) Rectal Exam - Female: visual inspection normal General: Yes bladder normal to palpation External Female Exam: normal appearance of the urethra Speculum Exam - Vagina: normal appearance of the vagina, normal palpation, normal vaginal discharge and vagina atrophic Speculum Exam - Cervix: normal appearance of the cervix, normal palpation and Other cervical findings present (abnormal protruding appearance, prolapsing) Bimanual exam- vagina & uterus: normal bimanual exam, normal palpation, uterine size normal, bladder normal to palpation, normal palpation, uterine shape normal and non-tender Bimanual Exam- Adnexa, other: normal adnexae and Other (Prolapse) Neuro General: patient oriented x3 Office Procedures Endometrial Biopsy Details: The patient is here today for an endometrial biopsy due to PMB to rule out any pathology including atypical, hyperplasia or cancer cells of the uterus. She was counseled regarding anticipatory guidance for the procedure including the risks for pain, infection, bleeding, perforation, potential injury to the tissues may include the cervix, uterus, tubes, bladder and bowels. These injuries may include further treatment and evaluation including surgery, blood transfusions, antibiotics, hospitalizations and anesthesia. Permanent injury and scarring can occur. She was consented for the procedure, and the consent forms were signed. She is agreeable to have the procedure today. All questions were answered. Endometrial Biopsy Procedure: The patient was placed in the dorsal lithotomy position and a sterile speculum inserted. Using aseptic technique for the procedure. The cervix was cleansed with Betadine x 3 swabs. A single toothed tenaculum was placed on the cervix for stabilization and the uterus was sounded to 7 cm with a 4mm pipelle for 3 passes, scant tissue obtained. Minimal bleeding was observed. The tissue sample was placed in formalin in a patient labeled container by staff assisting and sent to the pathology department for processing and interpretation. The patient tolerate the procedure well and was in good condition when leaving the department. Endometrial Biopsy Post Procedure Care: Nothing in the vagina including: tampons, douching or intimacy until all the bleeding has subsided. There may be some post procedure bleeding for several days, this bleeding is usually light and may turn to a light brown or pink color. Mild cramps may occurs. Nothing in the vaginal including: tampons, douching, or intimacy until all the bleeding has subsided. You may take an over the counter mild analgesic such as Tylenol or Advil (if no allergies) per the manufactures recommendation on dosing, frequency, and follow the directions completely. Call the office if any: fever (over 100.4), flu like symptoms, abdominal pain (worse than cramping), foul smelling, infected appearing vaginal discharge, or heavy bleeding. If indicated: Use condoms to prevent and STI's, and only after the bleeding has stopped completely. Return to the office in 2 weeks for results and plan of care. Due to the limited sample and the technical difficulty anatomical findings I recommend that she have a repeat EMB with Dr. Nichols as a tissue sample was very limited. This note is constructed using voice recognition software. While every effort has been made to ensure accuracy, pumper gauger apprentice errors may have been included. [id number] Biopsy Results Reviewed Results Reviewed: [address] [address] Ultrasound Report Signed Patient: Yue Kaur MR#: [id number] : 1955 Acct:[id number] Age/Sex: 68 / F ADM Date: 05/14/23 Loc: .[place] Attending Dr: Chitra Fay CNM Ordering Physician: Chitra Fay CNM Date of Service: 05/14/23 Procedure(s): US pelvic and transvaginal Accession Number(s): [id number] cc: Chitra Fay CNM; Jessica Stanton MD~ EXAMINATION: US PELVIS CLINICAL INFORMATION: Postmenopausal bleeding. COMPARISON: None available. TECHNIQUE: Ultrasound of the pelvis is performed using both transabdominal and transvaginal transducers along with Doppler. Transvaginal imaging is performed due to inadequate visualization transabdominally. FINDINGS: Uterus: The uterus is anteverted and measures 7.2 x 3.0 x 4.3 cm. The uterus appears normal. No discrete uterine mass. The endometrial stripe measures 6 mm which is abnormal in a patient with postmenopausal bleeding. Nabothian cysts in the cervix. Adnexa: The right ovary measures 1.5 mL and is normal in appearance. The left ovary measures 0.7 mL and is normal in appearance. US/US pelvic and transvaginal IMPRESSION: 6 mm endometrial stripe is considered thickened in the setting of post menopausal bleeding. Gynecology referral and endometrial biopsy are recommended. Dictated By: Quincy Colon MD Signed By: <Electronically signed by Quincy Colon MD in OV> 05/14/23 1420 DD/ 1350 TD/TT: Commissioning Specialist: СВЕТЛАНА Assessment & Plan Assessment & Plan (1) PMB (postmenopausal bleeding): Code(s): N95.0 - Postmenopausal bleeding (2) Encounter to discuss test results: Code(s): Z71.2 - Person consulting for explanation of examination or test findings Plan See procedure notes Orders: Orders Surgical Today N95.0 - Postmenopausal bleeding Coding Level of Care Code Procedure Only Diagnoses PMB (postmenopausal bleeding) N95.0 Encounter to discuss test results Z71.2 CPT Codes Endometrial Biopsy - CPT: 53599-Bupexmhuoge Biopsy ([id number])
[2023-05-28 11:03] VITALS: BP 120/52; BMI 27.8
== END 2023-05-28 11:39 | disposition home or self-care (01) ==
LOC: HO.HWS 10:56
PROVIDERS: PCP Internal Medicine; Visit Provider Advanced Practice Midwife
DX: N95.0 Postmenopausal bleeding (principal)
CPT/HCPCS: 58100

== ENCOUNTER 2023-05-28 10:56 | Outpatient (REF) | payer MEDICARE, SELFPAY | END 2023-05-28 10:57 | disposition home or self-care (01) | LOC: HO.LNP 10:56 | PROVIDERS: PCP Internal Medicine; Visit Provider Advanced Practice Midwife | DX: N95.0 Postmenopausal bleeding (principal); Z71.2 Person consulting for explanation of examination or test findings | CPT/HCPCS: 58100; 88300; 88305 ==

== ENCOUNTER 2023-07-16 08:34 | Outpatient (AMB) | payer MEDICARE, SELFPAY ==
--- NOTE | 2023-07-16 08:36 | A.OFFVIS_ITS ---
Intake Vital Signs 07/16/23 08:40 Height 5 ft 4 in Weight 160 lb 14.999 oz BMI 27.6 BP 120/70 Intake Visit Reasons: EMB Cloud Services Architect Required: Yes Cloud Services Architect Language: Korean Cloud Services Architect Name: [id number] Allergies ezetimibe [Zetia] Allergy (Intermediate, Verified 05/28/23 11:11) ? memory loss ? crestor Allergy (Intermediate, Uncoded 05/28/23 11:11) muscle cramps Simvastatin Allergy (Intermediate, Uncoded 05/28/23 11:11) myalgias Lamisil Allergy (Mild, Uncoded 05/28/23 11:11) Rash HPI HPI Comments History of Present Illness Details Presenting referred from Chitra Fay CNM regarding postmenopausal bleeding. The patient pelvic ultrasound which showed a 6 mm endometrial stripe, last co testing was in 03/09 which was negative, endometrial biopsy was attempted but there was no tissue is on pathology. [facility] Medical History PMB (postmenopausal bleeding) Uterine prolapse Hyperparathyroidism Productive cough URI (upper respiratory infection) Polyuria B12 deficiency Hypovitaminosis D Proteinuria Hypertriglyceridemia Impaired glucose tolerance Surgical History Hx of tubal ligation No pertinent past surgical history Family History Father Arthritis Mother No problems noted. Social History Housing: Apartment Alcohol intake: never Patient Tobacco Use Status: Never used Tobacco e-Cigarette/Vaping Use: Never Used Second Hand Smoke Exposure: No service: No Current occupational status: unemployed Cognitive needs: No Hearing needs: No Vision needs: Yes Female Reproductive History Menstrual Age of Menarche: 12 Review of Systems Const All systems reviewed & are unremarkable except as noted in HPI and below Physical Exam Vital Signs: Last Vital Signs BP 120/70 07/16/23 08:40 BMI result Body Mass Index 27.6 General: Yes no CVA tenderness External Female Exam: normal external appearance and normal appearance of the urethra Speculum Exam - Vagina: normal appearance of the vagina, normal palpation, no lesions and no masses Speculum Exam - Cervix: abnormal appearance of the cervix (Anterior cervical lesion polyp versus normal Cervical tissue), normal palpation, no lesions, no masses and nontender Bimanual exam- vagina & uterus: normal bimanual exam, normal palpation, uterine size normal, normal palpation, uterine shape normal, No Cervical tenderness present and non-tender Bimanual Exam- Adnexa, other: normal adnexae Back/Spine/Pelvis Back: no CVA tenderness Office Procedures Endometrial Biopsy Details: The patient was counseled regarding the indication and benefits of endometrial sampling to rule out endometrial pathology including not limited to endometrial hyperplasia or endometrial cancer and others; The alternatives (Either do nothing vs. hysteroscopy D&C) & the risks were discussed with the patient including but not limited: pain, uterine perforation, bleeding, infection, possible injury to bladder, bowel, ureter, possible need for blood transfusion with all its possible risks. The patient verbalized understanding all questions answered and signed consent. The patient was placed into the dorsal lithotomy position; a speculum was inserted in the vagina. Using aseptic technique for the procedure, the cervix was cleansed with Betadine. The anterior lip of the cervix was grasped with a single tooth tenaculum. The uterus was sounded to 7 cm with a 4 mm Pipelle was used. Tissues samples were obtained and placed in formalin, in a patient labeled container and sent to the pathology department. At the end of the procedure, there was minimal bleeding noted The patient tolerated the procedure well and was discharged in good condition with the following instructions: Nothing in the vagina until the bleeding stops. No sex until the bleeding stops, to call if any of the following occurs: fever (>100.4), flu-like symptoms, abdominal pain, heavy bleeding, four smelling vaginal discharge. The patient was instructed to schedule a Follow up appointment in 2 weeks to discuss pathology results of the biopsy and treatment options. This note was generated with a voice recognition program. Some errors may have been overlooked during the review of this note. Sometimes these errors may affect the content or meaning of a given sentence. 30604-Mwaomytewzt Biopsy DIAMOND WHEEL MOLDER Biopsy Before the procedure was started, discussed with the patient the procedure technique, alternatives & all the risks associated with the procedure including but not limited to: bleeding , infection, uterine perforation, injury to bladder, vessels, bowels, possible need for transfusion with all its risks, and others. All questions were answered, the patient verbalized understanding and signed the consent. The anterior cervical lesion was biopsied using a punch biopsy forceps. The patient tolerated the procedure well. Monsel's solution was applied to secure hemostasis. Instructions were given to the patient to call if bleeding, temp>100.4 occur. The patient verbalized understanding and agreed with the plan. This note was generated with a voice recognition program. Some errors may have been overlooked during the review of this note. Sometimes these errors may affect the content or meaning of a given sentence. 14845-Zgbiha of Cervix Procedure code (CPT) selection complete Assessment & Plan Assessment & Plan (1) PMB (postmenopausal bleeding): Code(s): N95.0 - Postmenopausal bleeding Plan: Discussed with the patient the pelvic ultrasound findings, the endometrial stripe thickenss measured by ultrasound was more than 4mm. The negative predictive value, positive predictive value, Sensitivity, specificity of using ultrasound measurement of endometrial stripe to detecting endometrial pathology including hyperplasia , polyp or cancer were discussed with the patient. Recommended to the patient that the next step is an endometrial sampling via hysteroscopy D&C possible polypectomy versus endometrial biopsy to r/o endometrial pathology including hyperplasia or cancer. All the pros and cons risks and benefits of each approach were discussed with the patient, endometrial biopsy being less invasive, office procedure with less sensitivity and inability diagnose a polyp and removal versus hysteroscopy done under anesthesia more invasive more sensitive to endometrial cancer and possibility of diagnosing and endometrial polyp with the possibility of polypectomy. All questions were answered pt verbalized understanding and decided to proceed with endometrial biopsy. EMB done, see procedure note (2) Lesion of cervix: Code(s): N88.9 - Noninflammatory disorder of cervix uteri, unspecified Plan: Discussed with the patient the finding on pelvic exam showing anterior cervical lesion at 12:00 o'clock, polyp versus normal cervical tissue, cervical biopsy done, see procedure note Orders: Orders AMB Endometrial Biopsy Today N95.0 - Postmenopausal bleeding Surgical Today N95.0 - Postmenopausal bleeding AMB DIAMOND WHEEL MOLDER Biopsy Today N88.9 - Noninflammatory disorder of cervix uteri, unspecified Coding Level of Care Code Est Pt Level 3 (26925) Procedure Only Diagnoses PMB (postmenopausal bleeding) N95.0 Lesion of cervix N88.9 CPT Codes Endometrial Biopsy - CPT: 82625-Keuzjhxdtvz Biopsy ([id number]) DIAMOND WHEEL MOLDER Biopsy - CPT: 81757-Fouqhq of Cervix ([id number])
[2023-07-16 08:40] VITALS: BP 120/70; BMI 27.6
== END 2023-07-16 09:15 | disposition home or self-care (01) ==
PROVIDERS: PCP Internal Medicine; Visit Provider Obstetrics & Gynecology
DX: N95.0 Postmenopausal bleeding (principal); N88.9 Noninflammatory disorder of cervix uteri, unspecified
CPT/HCPCS: 57500; 99213

== ENCOUNTER 2023-07-16 08:34 | Outpatient (REF) | payer MEDICARE, SELFPAY | END 2023-07-16 08:35 | disposition home or self-care (01) | LOC: HO.LNP 08:34 | PROVIDERS: PCP Internal Medicine; Visit Provider Obstetrics & Gynecology | DX: N95.0 Postmenopausal bleeding (principal); N88.9 Noninflammatory disorder of cervix uteri, unspecified | CPT/HCPCS: 57500; 88305; 99212 ==

== ENCOUNTER 2023-07-23 09:12 | Outpatient (AMB) | payer MEDICARE, SELFPAY ==
--- NOTE | 2023-07-23 09:19 | A.OFFPC_ITS ---
Vital Signs 07/23/23 09:20 Height 5 ft 4 in Weight 162 lb BMI 27.8 BP 130/76 Blood Pressure Location Lt brachial Position Sitting Intake Visit Reasons: PE Intake Note: Patient here for a physical exam Irrigator Overhead Required: No Accompanied by: Friend Allergies ezetimibe [Zetia] Allergy (Intermediate, Verified 07/23/23 09:44) ? memory loss ? Iodinated Contrast Media Allergy (Verified 07/23/23 09:57) Hives crestor Allergy (Intermediate, Uncoded 07/23/23 09:44) muscle cramps Simvastatin Allergy (Intermediate, Uncoded 07/23/23 09:44) myalgias Lamisil Allergy (Mild, Uncoded 07/23/23 09:44) Rash Medication List - Last Reconciled 07/23/23 by Jessica Smiley MD albuterol sulfate 90 mcg/actuation 1 inh inhalation QID PRN atorvastatin 10 mg PO DAILY 90 days cetirizine 10 mg PO DAILY PRN 30 days cholecalciferol (vitamin D3) 50 mcg PO DAILY 90 days cyanocobalamin (vitamin B-12) ER 1,000 mcg PO DAILY 90 days fluticasone propionate 50 mcg/actuation 1 spray intranasal DAILY PRN 30 days lidocaine 5% (Lidoderm) 1 patch topical DAILY lisinopril 10 mg PO DAILY 90 days magnesium 250 mg PO DAILY Ventolin HFA 90 mcg/actuation (albuterol sulfate) 2 puffs inhalation Q6H PRN 30 days NS vitamin E (dl, acetate) 45 mg PO DAILY Tobacco use date assessed: 07/23/23 Fall risk assessment: No Falls in past year Last assessed Fall Risk: 07/23/23 Dental Screening Dental Screen Date: 07/23/23 Did you have a dental visit in the last 12 months?: Yes Did you have a dental problem in the last 6 months where you did not have access to dental care?: No Was dental information given to patient?: Patient has dentist HPI HPI Comments History of Present Illness Details This is a 68-year-old female that comes for her physical exam accompanied by friend. Last mammogram was April 2023. Last colonoscopy was 2017 and next colonoscopy should be 2027. Last Pap smear was 2022 and had a recent endometrial biopsy in June 2023. Complains of nasal congestion that has been present for over 2 weeks. Also went to urgent care due to congestion and back pain. This was 07/10/2023 and had chest x-ray done that was negative and CT of lumbar spine and CT of the head which were unremarkable. Was find out to have a UTI and completed antibiotics. She also complains of neck pain radiating to the left arm associated with left arm numbness and back pain radiating to the left leg associated with left leg numbness. No fever, bowel or bladder incontinence. [facility] Medical History (Updated 07/23/23 @ 10:14 by Jessica Smiley MD) PMB (postmenopausal bleeding) Uterine prolapse Hyperparathyroidism Productive cough URI (upper respiratory infection) Polyuria B12 deficiency Hypovitaminosis D Proteinuria Hypertriglyceridemia Impaired glucose tolerance Surgical History (Updated 07/23/23 @ 09:55 by Jessica Smiley MD) Hx of tubal ligation Family History Father Arthritis Mother No problems noted. Social History Housing: Apartment Alcohol intake: never Patient Tobacco Use Status: Never used Tobacco e-Cigarette/Vaping Use: Never Used Second Hand Smoke Exposure: No service: No Current occupational status: unemployed Cognitive needs: No Hearing needs: No Vision needs: Yes Female Reproductive History Menstrual Age of Menarche: 12 Questionnaire PHQ-9 Over the last 2 weeks, how often have you been bothered by any of the following problems? 1. Little interest or pleasure in doing things: not at all 2. Feeling down, depressed, or hopeless: not at all 3. Trouble falling or staying asleep, or sleeping too much: not at all 4. Feeling tired or having little energy: not at all 5. Poor appetite or overeating: not at all 6. Feeling bad about yourself - or that you are a failure or have let yourself or your family down: not at all 7. Trouble concentrating on things, such as reading the newspaper or watching television: not at all 8. Moving or speaking so slowly that other people could have noticed. Or the opposite - being so fidgety or restless that you have been moving around a lot more than usual: not at all 9. Thoughts that you would be better off or of hurting yourself in some way: not at all Total score: 0 Depression Screening Interpretation: Negative Depression Screening Done: Yes 07385 - PHQ-9 Billing: Yes Source: Developed by Drs. Julio Álvarez, Patrick Larry and colleagues, with an educational saul from [employer]. Thrive Questionnaire Date Thrive assessed: 07/23/23 I am a: Patient What is your living situation today?: I have a steady place to live Within the past 12 months, did the food you bought not last and you didn't have the money to get more?: Never true Within the past 12 months, did you worry whether your food would run out before you got money to buy more?: Never true Do you have trouble paying for medicines?: No Do you have trouble getting transportation to medical appointments?: No Do you have trouble paying your heating and electricity bill?: No Do you have trouble taking care of your child, family member or friend?: No Do you have trouble with day-to-day activities such as bathing, preparing meals, shopping, managing finances, etc.?: No Are you currently unemployed and looking for a job?: No Are you interested in more education?: No Please select the resources that you would like help with: None Currently or been in a relationship where the following occur: no concerns reported THRIVE Score: 0 AUDIT C Alcohol Use Questionnaire (AUDIT-C) 1. How often do you have a drink containing alcohol?: Never Total Score: 0 CLARY-7 AMB Questionnaire CLARY-7 Date CLARY - 7 assessed: 07/23/23 Feeling nervous, anxious, or on edge: 0 = Not at all Not being able to stop or control worryin = Not at all Worrying too much about different things: 0 = Not at all Trouble relaxin = Not at all Being so restless that it is hard to sit still: 0 = Not at all Becoming easily annoyed or irritable: 0 = Not at all Feeling afraid as if something awful might happen: 0 = Not at all Total CLARY-7 score (0-4 normal; 5-9 mild; 10-14 moderate; 15-21 severe): 0 Source: Developed by Fernanda Byrd Kurt Kroenke and colleagues, with an educational saul from [employer]. CLARY-7 Assessment Billing CLARY-7 Assessment Tool: CLARY-7 Assessment 51596 Review of Systems Const All systems reviewed & are unremarkable except as noted in HPI and below Eyes Reports no additional complaints, Denies change in vision and Denies other visual disturbances Card Denies chest pain at rest, Denies chest pain with activity, Denies edema, Denies irregular heart rhythm, Denies claudication, Denies dyspnea, Denies dyspnea on exertion, Denies orthopnea, Denies paroxysmal nocturnal dyspnea and Denies slow heart rate Resp Denies cough, Denies dyspnea and Denies dyspnea on exertion GI Denies abdominal pain, Denies change in bowel habits, Denies excessive flatus, Denies nausea and Denies vomiting Denies urinary incontinence, Denies urinary hesitancy and Denies urinary urgency Musc Denies abnormal gait, Denies atrophy, Denies deformity and Denies limited range of motion Skin/Breast Denies bleeding lesions, Denies changing lesions and Denies rash Neuro Denies abnormal gait, Denies behavioral changes, Denies confusion and Denies lack of coordination Psych Denies behavioral changes and Denies confusion Physical exam (Primary Care) Vital Signs: Last Vital Signs BP 130/76 07/23/23 09:20 BMI result Body Mass Index 27.8 Tobacco/Smoking Status: Tobacco use Status Tobacco use date assessed 07/23/23 07/23/23 09:26 Patient Tobacco Use Status Never used Tobacco 07/23/23 09:22 Tobacco use type 07/16/23 09:17 e-Cigarette/Vaping Use Never Used 07/23/23 09:22 PHQ-9: PHQ-9 Score PHQ-9: Total score 0 07/23/23 09:31 Depression Screening Interpretation: Negative Thrive Assessment: Date of Thrive Assessment Date Thrive assessed 07/23/23 07/23/23 09:31 Currently or been in a relationship where the following occur: no concerns reported Const General: No confusion Orientation/consciousness: patient oriented x3 and No confusion HENMT Head: Yes normal to inspection, Yes normocephalic and Yes atraumatic Ears: external ears normal Eyes General: appearance normal, both eyes and all related structures Eyelids: Yes eyelids normal Conjunctivae: conjunctivae normal Neck Neck: Yes normal visual inspection and Yes supple Resp Effort & Inspection: normal respiratory effort Auscultation: clear to auscultation bilaterally Cardio Jugular venous distension: no JVD Rate: regular rate Rhythm: regular rhythm Heart sounds: S1 normal heart sound present and S2 normal heart sound present GI Inspection: Yes normal to inspection Palpation (GI): Soft to palpation and nontender Auscultation: normal bowel sounds Skin General skin exam: no rashes or lesions noted Neuro General: patient oriented x3, no focal motor deficits and No confusion Extrem General: Yes full ROM Assessment and Plan Assessment & Plan (1) Physical exam: Code(s): Z00.00 - Encounter for general adult medical examination without abnormal findings Plan: Repeat in a year. Orders: Orders Vitamin B12 and Folate Today E53.8 - Deficiency of other specified B group vitamins Vitamin D 25-OH Total Today E55.9 - Vitamin D deficiency, unspecified Calcium, Ionized Today E21.3 - Hyperparathyroidism, unspecified Calcium, 24 Hr Ur Today E21.3 - Hyperparathyroidism, unspecified Parathyroid Hormone Intact Today E21.3 - Hyperparathyroidism, unspecified Lipid Panel Today E78.5 - Hyperlipidemia, unspecified Comprehensive [place]. Panel Fast Today R73.02 - Impaired glucose tolerance (oral) Referrals Pain Management Referral M54.12 - Radiculopathy, cervical region, M54.32 - Sciatica, left side Medications: New doxycycline hyclate 100 mg PO BID 5 days 10 tabs 0RF R05.8 - Other specified cough guaifenesin ER (Mucinex) 600 mg PO Q12H 5 days PRN 10 tabs 0RF congestion R05.8 - Other specified cough Coding Level of Care Code Est Pt Prev Care >65y(75623) Diagnoses Physical exam Z00.00 Additional Codes CLARY-7 Assessment Billing - CLARY-7 Assessment Tool: CLARY-7 Assessment 96882 ([id number]) Time Spent (min) 36
[2023-07-23 09:20] VITALS: BP 130/76; BMI 27.8
== END 2023-07-23 10:10 | disposition home or self-care (01) ==
PROVIDERS: PCP Internal Medicine; Visit Provider Internal Medicine
DX: Z00.00 Encounter for general adult medical examination without abnormal findings (principal)
CPT/HCPCS: 99397

== ENCOUNTER 2023-08-03 08:25 | Outpatient (AMB) | payer MEDICARE, SELFPAY ==
--- NOTE | 2023-08-03 08:37 | MHC.OFFVIS ---
Intake Vital Signs 08/03/23 08:53 Height 5 ft 4 in Weight 170 lb BMI 29.2 BP 115/60 Blood Pressure Location Rt brachial Position Sitting Pulse 65 Pulse Source Pulse Oximeter Pulse Oximetry (%) 98 Oxygen Delivery Method Room Air Intake Visit Reasons: Radiculopathy, cervical region Intake Note: Pain today 0/10 Osteopathic Physician Required: No Accompanied by: Self / Same As Patient Allergies ezetimibe [Zetia] Allergy (Intermediate, Verified 08/03/23 08:52) ? memory loss ? Iodinated Contrast Media Allergy (Verified 08/03/23 08:52) Hives crestor Allergy (Intermediate, Uncoded 07/23/23 09:44) muscle cramps Simvastatin Allergy (Intermediate, Uncoded 07/23/23 09:44) myalgias Lamisil Allergy (Mild, Uncoded 07/23/23 09:44) Rash HPI Radiculopathy, cervical region HPI Details Patient is a pleasant 68 years old [place] speaking female with history of osteoarthritis presents today for initial evaluation of back pain with left radicular symptoms. Patient reports pain started few months ago while she was playing with her 6 years old grandchild and carrying on her back. She suddenly felt shooting back pain with radiation into her left buttock and left leg laterally and posteriorly with associated numbness, tingling and occasional weakness. She also had neck pain increase during this time. Pain was so severe that she went for evaluation to [facility] ER and was told her lumbar xrays and CT scan were unremarkable. She completed chiropractor therapy for 1.5 months and neck pain has significantly improved but radicular back pain has been worsening. Patient has difficulty with lumbar extension and flexion forward or bending down. SLR testing is positive on the left and worse with dorsiflexion. Patient states low back pain has been chronic condition for her but was able to manage it conservatively on her own with OTC topical and oral medications, gentle stretching, and ice/heat therapy. But currently, her back pain has been resistant to conservative treatments. She also reports chronic coccyx pain for few years which started while she was gardening and felt backwards. Patient declined work up for this at this time. Patient reports she is scheduled to undergo bone scan. Denies any previous spine injections or surgery. Pain affects her daily activities, functioning, sleep, social interactions and quality of life. Denies any fever, unintentional weight loss, abdominal or groin pain, foot drop, bladder or bowel dysfunction or saddle anesthesia. Reports intermittent left sided weakness with prolonged walking. Location Lower back pain, neck pain is better Duration Chronic back pain, recent acute back pain 2-3 months Characteristics of symptom or complaint Aching, throbbing, shooting, tingling, radiating, cold Aggravating or associated factors Movements, bending, prolonged walking or sitting, cold weather Relieving factors Tylenol, ice/heat therapy, topical OTC creams/patch Treatment Chiropractor therapy- improved neck and back pain, PT 2022 ON LICENSE OF [facility] Medical History PMB (postmenopausal bleeding) Uterine prolapse Hyperparathyroidism Productive cough URI (upper respiratory infection) Polyuria B12 deficiency Hypovitaminosis D Proteinuria Hypertriglyceridemia Impaired glucose tolerance Surgical History Hx of tubal ligation Family History Father Arthritis Mother No problems noted. Social History Housing: Apartment Alcohol intake: never Patient Tobacco Use Status: Never used Tobacco e-Cigarette/Vaping Use: Never Used Second Hand Smoke Exposure: No service: No Current occupational status: unemployed Cognitive needs: No Hearing needs: No Vision needs: Yes Female Reproductive History Menstrual Age of Menarche: 12 Review of Systems Const All systems reviewed & are unremarkable except as noted in HPI and below Physical Exam Vital Signs: Last Vital Signs Pulse 65 08/03/23 08:53 BP 115/60 08/03/23 08:53 Pulse Ox 98 08/03/23 08:53 Oxygen Delivery Method Room Air 08/03/23 08:53 BMI result Body Mass Index 29.2 General: Appears afebrile. Alert and oriented. Mood and affect appropriate. Follows and participates in conversation appropriately. Respiratory effort is unlabored. No cough. Able to transition from sit to stand unassisted. Ambulates with bilaterally normal heel strike and toe off, reports imbalance on left. Back/Spine/Pelvis Other: Patient is able to walk and stand on heels and tip toes with moderate difficulty on the left due to pain, otherwise demonstrating good motor tone. Mildly antalgic gait. No limping. Can flex forward to 55-65 degrees and extend to 5-10 degrees before experiencing lumbar pain. Demonstrates 5/5 right and 4/5 left strength of quadriceps bilaterally as well as flexion/dorsiflexion of bilateral feet against resistance. 2+ pedal pulses bilaterally. Seated straight leg rise with dorsiflexion positive on the left. Diminished patellar and achilles reflexes bilaterally. Facet loading test positive bilaterally. Prasanna sign, Hood?s, [place], Pelvic compression are positive on the left. No groin pain with I/E hip rotations. Significant paraspinals tenderness mostly on the left side, mid and lower back. Valsalva maneuver negative. Cervical Spine: cervical ROM normal, cervical muscular tenderness and No Cervical spine tenderness Thoracic/Lumbar Spine: thoracic and lumbar spine normal to inspection, No Thoracic/lumbar spine scar(s), Lasegue's sign positive on the left and localized, pain with thoraco-lumbar ROM, paraspinal muscle tenderness, thoraco-lumbar ROM limited, No thoracic spinal tenderness and lumbar spinal tenderness (L3-S1) Pelvis: buttock tenderness on the left Sacroiliac joints: on the right nontender and on the left tender to palpation Coccyx: Coccyx tenderness present (chronic pain with prolonged sitting) Skin General skin exam: no rashes or lesions noted Extrem General: Yes capillary refill normal, Yes no clubbing, cyanosis or edema and Yes no calf tenderness Results Reviewed Results Reviewed: XR LUMBOSACRAL SPINE 11/20/2014 CLINICAL INFORMATION: Low back pain. COMPARISON: Lumbar spine radiographs of 07/15/2011. TECHNIQUE: Lumbar spine 4 views: AP, lateral, coned-down AP and lateral of L5-S1. FINDINGS: There are 5 lumbar-type, [id number] vertebrae. The vertebral body heights and alignment are maintained. Intervertebral disc spaces are preserved. Minimal marginal anterior endplate hypertrophic spurring is noted at multiple levels. The paraspinous soft tissues are unremarkable. Sacroiliac joints are unremarkable. The visualized sacral neural foramina are intact. No evidence of suspicious of lytic or blastic osseous lesions. IMPRESSION: Stable mild degenerative changes in the lumbar spine. No acute compression fracture. Assessment & Plan Assessment & Plan (1) Left sided sciatica: Code(s): M54.32 - Sciatica, left side (2) Low back pain radiating to left leg: Code(s): M54.50 - Low back pain, unspecified; M79.605 - Pain in left leg (3) Lumbosacral radiculopathy: Code(s): M54.17 - Radiculopathy, lumbosacral region (4) Cervical spondylosis: Code(s): M47.812 - Spondylosis without myelopathy or radiculopathy, cervical region (5) Sacroiliac joint pain: Code(s): M53.3 - Sacrococcygeal disorders, not elsewhere classified (6) Chronic coccygeal pain: Code(s): M53.3 - Sacrococcygeal disorders, not elsewhere classified; G89.29 - Other chronic pain Plan Patient's pain consistent with left sided radiculopathy in L5-S1 distribution, axial and discogenic as well mild left SIJ pain components. She is very claustrophobic but will consider to undergo open MRI at [facility] with premedication with oral Ativan to assess for neural integrity and compression. We will send request for CT scan and xray release from [facility]. We briefly discussed interventional treatments for axial and radicular symptoms as well trial of gabapentin. Patient declined medication due to history of proteinuria and kidney cysts. She completed PT in 2022 and recent chiropractic adjustments relieved only her neck pain symptoms. The back pain is function and mobility limiting and has been resistant to conservative treatments. Patient will return to the clinic to discuss results of the MRI findings when it is done and consider interventional therapy as indicated. All questions and concerns have been answered and patient agreed with the plan. Follow up for MRI results and sooner as needed. Orders: Orders MR lumbar spine wo con Today F40.240 - Claustrophobia, M54.17 - Radiculopathy, lumbosacral region, M54.32 - Sciatica, left side, M54.50 - Low back pain, unspecified, M79.605 - Pain in left leg Coding Level of Care Code New Pt Level 4 (29015) Diagnoses Left sided sciatica M54.32 Low back pain radiating to left leg M54.50; M79.605 Lumbosacral radiculopathy M54.17 Cervical spondylosis M47.812 Sacroiliac joint pain M53.3 Chronic coccygeal pain M53.3; G89.29
[2023-08-03 08:53] VITALS: BP 115/60; PULSE 65; O2SAT 98; BMI 29.2
== END 2023-08-03 09:42 | disposition home or self-care (01) ==
PROVIDERS: PCP Internal Medicine; Referring Provider Internal Medicine; Visit Provider Nurse Practitioner Family
DX: M54.32 Sciatica, left side (principal); M54.50 Low back pain, unspecified; M79.605 Pain in left leg; M54.17 Radiculopathy, lumbosacral region; M47.812 Spondylosis without myelopathy or radiculopathy, cervical region; M53.3 Sacrococcygeal disorders, not elsewhere classified; G89.29 Other chronic pain
CPT/HCPCS: 99204; 99214

== ENCOUNTER → 2023-08-03 08:25 | Outpatient (BNVA) | payer MEDICARE, SELFPAY | PROVIDERS: PCP Internal Medicine; Referring Provider Internal Medicine; Visit Provider Nurse Practitioner Family | DX: M54.12 Radiculopathy, cervical region (principal); M54.32 Sciatica, left side; M54.50 Low back pain, unspecified; M54.17 Radiculopathy, lumbosacral region; M47.812 Spondylosis without myelopathy or radiculopathy, cervical region; M53.3 Sacrococcygeal disorders, not elsewhere classified; G89.29 Other chronic pain; F40.240 Claustrophobia; M79.605 Pain in left leg | CPT/HCPCS: 99202 ==

== ENCOUNTER 2023-08-06 15:22 | Outpatient (AMB) | payer OTHER, MEDICAID, SELFPAY ==
--- NOTE | 2023-08-06 15:27 | MHC.OFFVIS ---
Intake Vital Signs 08/06/23 15:33 Height 5 ft 4 in Weight 168 lb BMI 28.8 BP 176/74 H Blood Pressure Location Lt brachial Position Sitting Pulse 61 Pulse Source Pulse Oximeter Pulse Oximetry (%) 99 Oxygen Delivery Method Room Air Intake Visit Reasons: Increasing Leg pain Intake Note: Pain today 8.5/10 Child Development Instructor Required: No Accompanied by: Family/Other Allergies ezetimibe [Zetia] Allergy (Intermediate, Verified 08/06/23 15:34) ? memory loss ? Iodinated Contrast Media Allergy (Verified 08/06/23 15:34) Hives crestor Allergy (Intermediate, Uncoded 07/23/23 09:44) muscle cramps Simvastatin Allergy (Intermediate, Uncoded 07/23/23 09:44) myalgias Lamisil Allergy (Mild, Uncoded 07/23/23 09:44) Rash HPI HPI Comments History of Present Illness Details Patient presents today for follow up for worsening left leg pain with walking and most activities. She was initially seen in our office 3 days ago and MRI was ordered but has not been scheduled yet. Patient returned today to have a back injection to alleviate her left leg pain. She is accompanied by her family with whom she converses in Slovenian and Belarusian and who assists us today for translation per patient's request. Pain is rated at 8.5/10. Pain increases with walking, bending, flexing forward, lifting and changing positions during sleep. Patient denies any red flags back symptoms. Denies any bladder or bowel dysfunction or saddle anesthesia. Oswestry Low Back Disability Score-24 (moderate disability) PRIOR: Patient is a pleasant 68 years old Belarusian/Slovenian speaking female with history of osteoarthritis presents today for initial evaluation of back pain with left radicular symptoms. Patient reports pain started few months ago while she was playing with her 6 years old grandchild and carrying on her back. She suddenly felt shooting back pain with radiation into her left buttock and left leg laterally and posteriorly with associated numbness, tingling and occasional weakness. She also had neck pain increase during this time. Pain was so severe that she went for evaluation to [facility] ER and was told her lumbar xrays and CT scan were unremarkable. She completed chiropractor therapy for 1.5 months and neck pain has significantly improved but radicular back pain has been worsening. Patient has difficulty with lumbar extension and flexion forward or bending down. SLR testing is positive on the left and worse with dorsiflexion. Patient states low back pain has been chronic condition for her but was able to manage it conservatively on her own with OTC topical and oral medications, gentle stretching, and ice/heat therapy. But currently, her back pain has been resistant to conservative treatments. She also reports chronic coccyx pain for few years which started while she was gardening and felt backwards. Patient declined work up for this at this time. Patient reports she is scheduled to undergo bone scan. Denies any previous spine injections or surgery. Pain affects her daily activities, functioning, sleep, social interactions and quality of life. Denies any fever, unintentional weight loss, abdominal or groin pain, foot drop, bladder or bowel dysfunction or saddle anesthesia. Reports intermittent left sided weakness with prolonged walking. Location Lower back pain, neck pain is better Duration Chronic back pain, recent acute back pain 2-3 months Characteristics of symptom or complaint Aching, throbbing, shooting, tingling, radiating, cold Aggravating or associated factors Movements, bending, prolonged walking or sitting, cold weather Relieving factors Tylenol, ice/heat therapy, topical OTC creams/patch Treatment Chiropractor therapy- improved neck and back pain, PT 2022 [facility] Medical History PMB (postmenopausal bleeding) Uterine prolapse Hyperparathyroidism Productive cough URI (upper respiratory infection) Polyuria B12 deficiency Hypovitaminosis D Proteinuria Hypertriglyceridemia Impaired glucose tolerance Surgical History Hx of tubal ligation Family History Father Arthritis Mother No problems noted. Social History Housing: Apartment Alcohol intake: never Patient Tobacco Use Status: Never used Tobacco e-Cigarette/Vaping Use: Never Used Second Hand Smoke Exposure: No service: No Current occupational status: unemployed Cognitive needs: No Hearing needs: No Vision needs: Yes Female Reproductive History Menstrual Age of Menarche: 12 Review of Systems Const All systems reviewed & are unremarkable except as noted in HPI and below Physical Exam Vital Signs: Last Vital Signs Pulse 61 08/06/23 15:33 BP 176/74 H 08/06/23 15:33 Pulse Ox 99 08/06/23 15:33 Oxygen Delivery Method Room Air 08/06/23 15:33 BMI result Body Mass Index 28.8 General: Appears afebrile. Alert and oriented. Mood and affect appropriate. Follows and participates in conversation appropriately. Respiratory effort is unlabored. No cough. Able to transition from sit to stand unassisted. Ambulates with bilaterally normal heel strike and toe off, reports imbalance on left. Back/Spine/Pelvis Cervical Spine: cervical ROM normal, cervical muscular tenderness and No Cervical spine tenderness Thoracic/Lumbar Spine: thoracic and lumbar spine normal to inspection, No Thoracic/lumbar spine scar(s), Lasegue's sign positive on the left and localized, pain with thoraco-lumbar ROM, paraspinal muscle tenderness, thoraco-lumbar ROM limited, No thoracic spinal tenderness and lumbar spinal tenderness (L3-S1) Pelvis: buttock tenderness on the left Sacroiliac joints: on the right nontender and on the left tender to palpation Results Reviewed Results Reviewed: No imaging is available for review. Assessment & Plan Assessment & Plan (1) Lumbosacral radiculopathy: Code(s): M54.17 - Radiculopathy, lumbosacral region (2) Low back pain radiating to left leg: Code(s): M54.50 - Low back pain, unspecified; M79.605 - Pain in left leg (3) Sacroiliac joint pain: Code(s): M53.3 - Sacrococcygeal disorders, not elsewhere classified Plan Pending lumbar spine MRI at with premeditation with oral Ativan to assess for neural integrity and compression. Patient's pain has been worsening and consistent with left sided radiculopathy in L5-S1 distribution, axial and discogenic as well mild left SIJ pain components. The back pain is function and mobility limiting and has been resistant to conservative treatments. Short script sent for oxycodone and tizanidine for acute symptoms. Side effects, precautions and medication safety reviewed with patient and family. Patient will return to the clinic to discuss results of the MRI findings when it is done and consider interventional therapy as indicated. All questions and concerns have been answered and patient agreed with the plan. Follow up for MRI results and sooner as needed. Medications: New tizanidine 2 mg PO BID 30 days PRN 60 tabs 0RF muscle spasticity M54.17 - Radiculopathy, lumbosacral region, M54.50 - Low back pain, unspecified, M79.605 - Pain in left leg oxycodone Partial Fill upon patient request. 5 mg PO Q8H 5 days PRN 15 tabs 0RF pain (scale score 7-10) M54.17 - Radiculopathy, lumbosacral region, M54.50 - Low back pain, unspecified, M79.605 - Pain in left leg Coding Level of Care Code Est Pt Level 3 (14295) Diagnoses Lumbosacral radiculopathy M54.17 Low back pain radiating to left leg M54.50; M79.605 Sacroiliac joint pain M53.3
[2023-08-06 15:33] VITALS: BP 176/74; PULSE 61; O2SAT 99; BMI 28.8
== END 2023-08-06 15:53 | disposition home or self-care (01) ==
PROVIDERS: PCP Internal Medicine; Visit Provider Nurse Practitioner Family
DX: M54.17 Radiculopathy, lumbosacral region (principal); M54.50 Low back pain, unspecified; M79.605 Pain in left leg; M53.3 Sacrococcygeal disorders, not elsewhere classified
CPT/HCPCS: 99213

== ENCOUNTER → 2023-08-06 15:22 | Outpatient (BNVA) | payer MEDICARE, SELFPAY | PROVIDERS: PCP Internal Medicine; Visit Provider Nurse Practitioner Family ==

== ENCOUNTER 2023-08-10 15:52 | Outpatient (AMB) | payer OTHER, MEDICAID, SELFPAY ==
[2023-08-10 15:53] VITALS: BMI 28.8
--- NOTE | 2023-08-10 15:53 | MHC.OFFVIS ---
Intake Vital Signs 08/10/23 15:53 Height 5 ft 4 in Weight 168 lb BMI 28.8 Intake Visit Reasons: Discuss MRI Hot Wire Glass Tube Cutter Required: Yes Hot Wire Glass Tube Cutter Language: Emirati Hot Wire Glass Tube Cutter Name: Daughter Claritza Tolliver ezetimibe [Zetia] Allergy (Intermediate, Verified 08/10/23 15:53) ? memory loss ? Iodinated Contrast Media Allergy (Verified 08/10/23 15:53) Hives crestor Allergy (Intermediate, Uncoded 07/23/23 09:44) muscle cramps Simvastatin Allergy (Intermediate, Uncoded 07/23/23 09:44) myalgias Lamisil Allergy (Mild, Uncoded 07/23/23 09:44) Rash HPI HPI Comments History of Present Illness Details Patient presents today via telehealth encounter to review recent lumbar spine MRI results. Denies any recent cough, cold, infection, fever, any significant changes in her medical history, medications or recent hospitalizations. PRIOR: Patient presents today for follow up for worsening left leg pain with walking and most activities. She was initially seen in our office 3 days ago and MRI was ordered but has not been scheduled yet. Patient returned today to have a back injection to alleviate her left leg pain. She is accompanied by her family with whom she converses in Syrian and Emirati and who assists us today for translation per patient's request. Pain is rated at 8.5/10. Pain increases with walking, bending, flexing forward, lifting and changing positions during sleep. Patient denies any red flags back symptoms. Denies any bladder or bowel dysfunction or saddle anesthesia. Oswestry Low Back Disability Score-24 (moderate disability) PRIOR: Patient is a pleasant 68 years old Emirati/Syrian speaking female with history of osteoarthritis presents today for initial evaluation of back pain with left radicular symptoms. Patient reports pain started few months ago while she was playing with her 6 years old grandchild and carrying on her back. She suddenly felt shooting back pain with radiation into her left buttock and left leg laterally and posteriorly with associated numbness, tingling and occasional weakness. She also had neck pain increase during this time. Pain was so severe that she went for evaluation to [facility] ER and was told her lumbar xrays and CT scan were unremarkable. She completed chiropractor therapy for 1.5 months and neck pain has significantly improved but radicular back pain has been worsening. Patient has difficulty with lumbar extension and flexion forward or bending down. SLR testing is positive on the left and worse with dorsiflexion. Patient states low back pain has been chronic condition for her but was able to manage it conservatively on her own with OTC topical and oral medications, gentle stretching, and ice/heat therapy. But currently, her back pain has been resistant to conservative treatments. She also reports chronic coccyx pain for few years which started while she was gardening and felt backwards. Patient declined work up for this at this time. Patient reports she is scheduled to undergo bone scan. Denies any previous spine injections or surgery. Pain affects her daily activities, functioning, sleep, social interactions and quality of life. Denies any fever, unintentional weight loss, abdominal or groin pain, foot drop, bladder or bowel dysfunction or saddle anesthesia. Reports intermittent left sided weakness with prolonged walking. Location Lower back pain, neck pain is better Duration Chronic back pain, recent acute back pain 2-3 months Characteristics of symptom or complaint Aching, throbbing, shooting, tingling, radiating, cold Aggravating or associated factors Movements, bending, prolonged walking or sitting, cold weather Relieving factors Tylenol, ice/heat therapy, topical OTC creams/patch Treatment Chiropractor therapy- improved neck and back pain, PT 2022 [facility] Medical History PMB (postmenopausal bleeding) Uterine prolapse Hyperparathyroidism Productive cough URI (upper respiratory infection) Polyuria B12 deficiency Hypovitaminosis D Proteinuria Hypertriglyceridemia Impaired glucose tolerance Surgical History Hx of tubal ligation Family History Father Arthritis Mother No problems noted. Social History Housing: Apartment Alcohol intake: never Patient Tobacco Use Status: Never used Tobacco e-Cigarette/Vaping Use: Never Used Second Hand Smoke Exposure: No service: No Current occupational status: unemployed Cognitive needs: No Hearing needs: No Vision needs: Yes Female Reproductive History Menstrual Age of Menarche: 12 Review of Systems ENT Reports Normal hearing present Neuro Reports Normal hearing present and Denies confusion Psych Denies confusion Physical Exam Vital Signs: BMI result Body Mass Index 28.8 Const General: cooperative, alert and awake; No confusion Orientation/consciousness: patient oriented x3 and No confusion Resp Effort & Inspection: able to speak in complete sentences, no audible wheezes and no cough Neuro General: patient oriented x3 and No confusion Cranial nerves: Yes Normal hearing present Cognition (Neuro): normal cognition Psych Mental Status: mental status grossly normal Speech and movement: Clear speech present Affect: normal affect Attitude: cooperative Thought process: Normal thought process present Thought content: Normal thought content present and No Depressive thoughts present Insight: Good insight present (Psych) Judgement: Good judgement present (Psych) Results Reviewed Results Reviewed: MR SPINE LUMBAR without CONTRAST 08/08/23 INDICATION: Patient presents with low back pain, left-sided sciatica and pain in right leg. Radiculopathy lumbosacral. Left leg feels colder than the right. TECHNIQUE: Unenhanced multiplanar, multisequence MR imaging of the lumbar spine. FINDINGS: Normal lumbar alignment is demonstrated. Vertebral heights are well maintained. Bone marrow signal is within normal limits, and no suspicious osseous lesion is identified. Conus medullaris is unremarkable. There are multiple bilateral renal cysts. At L1-2 there is mild intervertebral disc space narrowing. There is a broad-based disc bulge with ligament flavum hypertrophy and uncovertebral joint hypertrophy which in combination create mild central canal stenosis. No exiting nerve root encroachment found.. At L2-3 there is There is a broad-based disc bulge with ligament flavum hypertrophy and uncovertebral joint hypertrophy which in combination create mild central canal stenosis. No exiting nerve root encroachment found.. At L3-4 there is ligament flavum hypertrophy with a broad-based disc bulge and uncovertebral joint hypertrophy which in combination create moderate central canal stenosis. No exiting nerve root encroachment is seen. There is marked narrowing of the bilateral reticular recess ease impinging upon the descending right and left L4 nerve roots.. At L4-5 there is a left paracentral disc bulge extending into the anterolateral recess of the spinal canal encroaching upon the descending left L5 nerve root. Along with ligament flavum hypertrophy and bilateral uncovertebral joint hypertrophy, there is moderate central canal stenosis. At L5-S1 there is no significant disc herniation or protrusion. No central canal or neural foraminal stenosis is demonstrated. There is bilateral uncovertebral joint hypertrophy. IMPRESSION: 1. Left paracentral disc bulge at L4-5 encroaching upon the descending left L5 nerve root. There is moderate central canal stenosis at this level. 2. Moderate central canal stenosis at L3-4 with bilateral L4 nerve root encroachment. 3. Mild central canal stenosis at L1-2 and L2-3. 4. Multiple bilateral renal cysts. Assessment & Plan Assessment & Plan (1) Lumbosacral radiculopathy: Code(s): M54.17 - Radiculopathy, lumbosacral region (2) Low back pain radiating to left leg: Code(s): M54.50 - Low back pain, unspecified; M79.605 - Pain in left leg (3) Sacroiliac joint pain: Code(s): M53.3 - Sacrococcygeal disorders, not elsewhere classified (4) Lumbar spinal stenosis: Code(s): M48.061 - Spinal stenosis, lumbar region without neurogenic claudication Plan Results of lumbar spine MRI discussed with patient and her family in greater length today. Findings are consistent with patient's acute left sided radicular symptoms. She is encouraged to rest, take NSAIDs, muscle relaxants, avoid heavy lifting, and trial of oral steroid. We also discussed PT, epidural steroid injection and Neurosurgical evaluation if symptoms continue. Her back pain is function and mobility limiting and has been resistant to conservative treatments so far. Script sent for prednisone and Naproxen. Side effects, precautions and medication safety reviewed with patient and family. Patient is aware to avoid taking prednisone and NSAIDs at the same time. Patient is aware to call if pain worsens or if she develops any red flag symptoms to seek emergency care. Patient denies any cauda equina syndrome symptoms at this time. All questions and concerns have been answered and patient agreed with the plan. Follow up after PT and sooner as needed. I hereby testify that I spent 18 minutes in conversation with this patient as well as with planning and coordinating care for this patient and organizing this note. Medications: New naproxen Take it with food and full glass of water. 500 mg PO BID 30 days PRN 60 tabs 1RF pain M54.17 - Radiculopathy, lumbosacral region, M54.50 - Low back pain, unspecified, M79.605 - Pain in left leg prednisone 20 mg PO DAILY 6 days 6 tabs 0RF pain M48.061 - Spinal stenosis, lumbar region without neurogenic claudication, M54.17 - Radiculopathy, lumbosacral region, M54.50 - Low back pain, unspecified, M79.605 - Pain in left leg Telehealth Telehealth Location of provider rendering services: practice address Location of patient: address on file Patient Identification confirmed using: Name, : Yes Telehealth method: voice only Patient verbally consented to treatment: Yes Patient verbally consented to billing insurance company: Yes Patient informed of any privacy concerns related to visit: Yes Minutes spent on Phone/Video with Pt.: 18 Coding Level of Care Code Tele Est Pt Level 4 (09888) Diagnoses Lumbosacral radiculopathy M54.17 Low back pain radiating to left leg M54.50; M79.605 Sacroiliac joint pain M53.3 Lumbar spinal stenosis M48.061
== END 2023-08-10 16:12 | disposition home or self-care (01) ==
PROVIDERS: PCP Internal Medicine; Visit Provider Nurse Practitioner Family
DX: M54.17 Radiculopathy, lumbosacral region (principal); M54.50 Low back pain, unspecified; M79.605 Pain in left leg; M53.3 Sacrococcygeal disorders, not elsewhere classified; M48.061 Spinal stenosis, lumbar region without neurogenic claudication
CPT/HCPCS: 99214

== ENCOUNTER → 2023-08-10 15:52 | Outpatient (BNVA) | payer OTHER, MEDICAID, SELFPAY | PROVIDERS: PCP Internal Medicine; Visit Provider Nurse Practitioner Family ==

== ENCOUNTER 2023-08-17 10:45 | Outpatient (AMB) | payer MEDICARE, MEDICAID, SELFPAY ==
--- NOTE | 2023-08-17 10:46 | A.OFFVIS_ITS ---
Intake Vital Signs 08/17/23 10:48 Height 5 ft 4 in Weight 167 lb 8.821 oz BMI 28.8 BP 136/64 Intake Visit Reasons: EMB follow up Manager Drilling Required: No Information Interpreted: non-clinical & clinical Accompanied by: Friend Allergies ezetimibe [Zetia] Allergy (Intermediate, Verified 08/17/23 10:48) ? memory loss ? Iodinated Contrast Media Allergy (Verified 08/17/23 10:48) Hives crestor Allergy (Intermediate, Uncoded 08/17/23 10:48) muscle cramps Simvastatin Allergy (Intermediate, Uncoded 08/17/23 10:48) myalgias Lamisil Allergy (Mild, Uncoded 08/17/23 10:48) Rash Post menopausal: Yes HPI HPI Comments History of Present Illness Details The patient is presenting after endometrial biopsy. The patient has no complaints, no vaginal bleeding, no feverishness chills or abdominal pain. Endometrial biopsy pathology showed the following: A. Endometrium, biopsy: Scant strips of benign atrophic endometrium, and benign endocervical glandular and squamous epithelium; no atypia or carcinoma. B. Cervix, lesion, biopsy: Benign polypoid endocervical glandular mucosa with markedly inflamed granulation tissue with surface erosion; no evidence of malignancy PFSH Medical History PMB (postmenopausal bleeding) Uterine prolapse Hyperparathyroidism Productive cough URI (upper respiratory infection) Polyuria B12 deficiency Hypovitaminosis D Proteinuria Hypertriglyceridemia Impaired glucose tolerance Surgical History Hx of tubal ligation Family History Father Arthritis Mother No problems noted. Social History Housing: Apartment Alcohol intake: never Patient Tobacco Use Status: Never used Tobacco e-Cigarette/Vaping Use: Never Used Second Hand Smoke Exposure: No service: No Current occupational status: unemployed Cognitive needs: No Hearing needs: No Vision needs: Yes Female Reproductive History Menstrual Age of Menarche: 12 Review of Systems Const All systems reviewed & are unremarkable except as noted in HPI and below Reports as per HPI and Reports no additional complaints GI Reports no additional complaints Reports no additional complaints Assessment & Plan Assessment & Plan (1) PMB (postmenopausal bleeding): Code(s): N95.0 - Postmenopausal bleeding Plan: Discussed with the patient the results of the endometrial biopsy showing benign endometrium. Discussed with the patient the sensitivity, specificity, positive and negative predictive value, of endometrial biopsy in detecting endometrial pathology including but not limited to endometrial hyperplasia, cancer and other pathology; instructed the patient to call in case vaginal bleeding bleeding recurs, the next step will be to proceed with a diagnostic hysteroscopy/D&C for further endometrial sampling evaluation to rule out endometrial pathology. All questions answered and the patient verbalized understanding and agreed with the plan. (2) Lesion of cervix: Code(s): N88.9 - Noninflammatory disorder of cervix uteri, unspecified Plan: Discussed with the patient the results the pathology showing Benign polypoid endocervical glandular mucosa with markedly inflamed granulation tissue with surface erosion; no evidence of malignancy , the patient was reassured. All questions answered, the patient verbalized understanding. Coding Level of Care Code Est Pt Level 3 (84659) Diagnoses PMB (postmenopausal bleeding) N95.0 Lesion of cervix N88.9
[2023-08-17 10:48] VITALS: BP 136/64; BMI 28.8
== END 2023-08-17 12:42 | disposition home or self-care (01) ==
PROVIDERS: PCP Internal Medicine; Visit Provider Obstetrics & Gynecology
DX: N95.0 Postmenopausal bleeding (principal); N88.9 Noninflammatory disorder of cervix uteri, unspecified
CPT/HCPCS: 99213

== ENCOUNTER → 2023-08-17 10:45 | Outpatient (BNVA) | payer OTHER, MEDICAID, SELFPAY | PROVIDERS: PCP Internal Medicine; Visit Provider Obstetrics & Gynecology ==

== ENCOUNTER 2023-08-28 09:50 | Outpatient (AMB) | payer MEDICARE, MEDICAID, SELFPAY ==
--- NOTE | 2023-08-28 10:03 | HO.SPINEOV ---
Intake Intake Visit Reasons: bulge disc L4-5 Intake Note: Ms. Kaur is here today c/o back pain that radiates to the legs Pantograph Transferrer Required: Yes Pantograph Transferrer Name: Claritza Tolliver ezetimibe [Zetia] Allergy (Intermediate, Verified 08/17/23 10:48) ? memory loss ? Iodinated Contrast Media Allergy (Verified 08/17/23 10:48) Hives crestor Allergy (Intermediate, Uncoded 08/17/23 10:48) muscle cramps Simvastatin Allergy (Intermediate, Uncoded 08/17/23 10:48) myalgias Lamisil Allergy (Mild, Uncoded 08/17/23 10:48) Rash Assessment & Plan Assessment & Plan (1) Low back pain radiating to left leg: Code(s): M54.50 - Low back pain, unspecified; M79.605 - Pain in left leg Plan Dear Moni Thank you for referring Mrs Kaur to our office today. She is a very pleasant 68-year-old [place] woman who presents to the office today for evaluation of an acute onset of pain in her left leg which started about a month ago after chiropractic visit. She tells me that it started with a feeling of intense pain in the low back and then ultimately transitioned to pain going down her left leg into her outer calf. Getting up and walking around has been very difficult. Sleeping at night has been almost impossible. She has been trialed on medications including naproxen, oxycodone and steroids. The steroids maybe helped slightly. She is underwent an MRI at the [facility] showing herniated disc at L4-5 on the left amongst other degenerative changes. She came in today see us for an evaluation because the pain has been unrelenting. She has not have any pain in the right leg. No cauda equina symptoms. At this point she does not have any conservative management in the form of physical therapy or injections. She is tentatively going to therapy sometime later this month. PMH: She is reasonably healthy for her age, history of hypertension, high cholesterol, she does not have a history of cardiac disease, strokes, kidney problems, liver disorders, bleeding disorders, abdominal surgeries or previous back surgery Social hx: She does not smoke, drink or use any recreational drugs Medications: Lisinopril, pravastatin and the above-mentioned nonsteroidal anti-inflammatories and pain medications Allergies: Please see the [employer] list Physical exam: She is awake alert oriented here with her daughter Claritza today who has helping interpret, she is significant amount of pain with standing and walking she is limping around the office. She did require assistance getting up on the examining table. Her strength in her bilateral lower extremities is normal. Slightly decreased reflexes in the left patella. No clonus. Imaging review: [facility] disease with moderate to severe stenosis at L3-4, severe stenosis at L4-5 with what looks like an acute superimposed left-sided disc fragment which is tucked itself behind the vertebral body. Impression: This is a very pleasant 68-year-old female presents to the office for evaluation of 1 month of acute onset of left leg radiculopathy which I think is related to the acute herniated disc I see at L4-5. She had baseline stenosis at L4-5 which was likely severe to begin with and the disc herniation has only compounded the problem as there was very minimal room in the spinal canal to begin with. She has similar stenosis at L3-4 just not quite as severe. She has just a month into this process, which is a little early, but the pain has been intense and she has been unable to sleep. She is scheduled for some upcoming physical therapy. I am not sure it is going to do anything really, it may make her worse, but as we understand, the insurance companies will require that she undergo this before she be allowed to consider any surgery. I think in the end time will tell if this is going to get better on its own, but if she is continuing to suffer, I think it she would be very reasonable to have her undergo decompression and diskectomy. I will review her films Dr. Mathew and get back to the patient's daughter with a final plan. We did discuss all pertinent risks and benefits and recovery of lumbar decompression/diskectomy and quoted 90% success rate for the surgery. Thank you for allowing us to care for your patient. The total time spent with this visit with this patient was 45 minutes reviewing history, physical exam, lumbar imaging review, and implementation of treatment plan or further diagnostic testing Zane Mathew MD,PhD [facility] Coding Level of Care Code New Pt Level 4 (71657) Diagnoses Low back pain radiating to left leg M54.50; M79.605
== END 2023-08-28 11:01 | disposition home or self-care (01) ==
PROVIDERS: PCP Internal Medicine; Visit Provider Physician Assistant
DX: M54.50 Low back pain, unspecified (principal); M79.605 Pain in left leg
CPT/HCPCS: 99204

== ENCOUNTER → 2023-08-28 09:50 | Outpatient (BNVA) | payer MEDICARE, MEDICAID, SELFPAY | PROVIDERS: PCP Internal Medicine; Visit Provider Physician Assistant | DX: M54.50 Low back pain, unspecified (principal); M79.605 Pain in left leg | CPT/HCPCS: 99202 ==

== ENCOUNTER 2023-09-02 10:49 | Outpatient (REF) | payer MEDICARE, MEDICAID, SELFPAY ==
--- NOTE | ~2023-09-02 | MM_ITS ---
EXAMINATION: BONE DENSITOMETRY CLINICAL INDICATION: Unspecified menopausal and perimenopausal disorder. COMPARISON: Baseline BD dated 11/02/2009. TECHNIQUE: Using a [employer] DXA System (software version: 13.1) manufactured by [email or web address], dual-energy x-ray absorptiometry was performed of the lumbar spine and left hip. The images are of good technical quality. Summary results are attached. FINDINGS: LEFT FEMUR, NECK: Current: BMD 0.834 g/cm2, Z-score 0.0, T-score -1.5, osteopenia. Baseline: BMD 0.923 g/cm2. LEFT FEMUR, TOTAL: Current: BMD 0.903 g/cm2, Z-score 0.4, T-score -0.8, normal, 10.9% decrease from baseline (<5% change is not significant). Baseline: BMD 1.014 g/cm2. AP SPINE L1-L4: Current: BMD 1.032 g/cm2, Z-score 0.1, T-score -1.2, osteopenia, 10.0% decrease from baseline (<5% change is not significant). Baseline: BMD 1.147 g/cm2. IDENTIFIED RISK FACTORS: Early menopause, secondary osteoporosis. HISTORY OF FRACTURE: None listed. MEDICATIONS: Vitamin D. MM/XR DEXA axial skeleton IMPRESSION: 1. DIAGNOSIS: Osteopenia based on the lowest T-score value of -1.5 in the femoral neck applying World Health Organization criteria. 2. 10-YEAR FRACTURE RISK PREDICTION, FRAX: Major osteoporotic fracture (clinical spine, forearm, hip or shoulder) 9.7%. Hip fracture 1.3%. 3. Treatment Recommendations: NOF guidelines recommend consideration for treatment in postmenopausal women and men age 50 and older presenting with the following: -A hip or vertebral (clinical or morphometric) fracture. -T-score less than or equal to -2.5 at the femoral neck or spine after appropriate evaluation to exclude secondary causes. -Low bone mass at the hip or spine and a 10-year fracture probability by FRAX of greater than or equal to 3% for hip fracture or greater than or equal to 20% for major osteoporotic fracture based on the [place] adapted WHO algorithm. 4. Other Recommendations: All treatment decisions require clinical judgment and consideration of individual patient factors, including patient preferences, comorbidities, previous drug use, risk factors not captured in the FRAX model (e.g. frailty, falls, vitamin D deficiency, increased bone turnover, interval significant decline in bone density) and possible under or overestimation of fracture risk by FRAX. Additional medical evaluation for secondary cause of low bone mineral density may be appropriate. FUTURE SCAN RECOMMENDATION: People with diagnosed cases of osteoporosis or at high risk for fracture should have regular bone mineral density tests. For patients eligible for Medicare, routine testing is allowed once every 2 years. The testing frequency can be increased to one year for patients who have rapidly progressing disease, those who are receiving or discontinuing medical therapy to restore bone mass, or have additional risk factors.
== END 2023-09-02 10:50 | disposition home or self-care (01) ==
LOC: HO.MAMMO 10:49
PROVIDERS: PCP Internal Medicine; Visit Provider Internal Medicine
DX: Z13.820 Encounter for screening for osteoporosis (principal); Z78.0 Asymptomatic menopausal state
CPT/HCPCS: 77080

== ENCOUNTER 2023-09-12 11:22 | Outpatient (AMB) | payer MEDICARE, MEDICAID, SELFPAY ==
[2023-09-12 11:23] VITALS: BP 100/54; PULSE 75; TEMP 36.9; O2SAT 95; BMI 27.8
--- NOTE | 2023-09-12 11:23 | MHC.OFFWIV ---
Intake Vital Signs 09/12/23 11:23 Height 5 ft 4 in Weight 162 lb BMI 27.8 BP 100/54 L Blood Pressure Location Rt brachial Pulse 75 Pulse Source Pulse Oximeter Temp 98.4 F Temp Source Oral Pulse Oximetry (%) 95 Oxygen Delivery Method Room Air Intake Visit Reasons: EP both eyes irritated Intake Note: Pt is here today c/o bilateral eyes irritated: was dx'd with pink eye on 09/10/23 no improvement with eye ointment abx Patient Tobacco Use Status: Never used Tobacco Allergies ezetimibe [Zetia] Allergy (Intermediate, Verified 09/12/23 11:36) ? memory loss ? Iodinated Contrast Media Allergy (Verified 09/12/23 11:36) Hives crestor Allergy (Intermediate, Uncoded 09/12/23 11:23) muscle cramps Simvastatin Allergy (Intermediate, Uncoded 09/12/23 11:23) myalgias Lamisil Allergy (Mild, Uncoded 09/12/23 11:23) Rash Medication List - Last Reconciled 09/12/23 by ROMELIA Ruelas- albuterol sulfate 90 mcg/actuation 1 inh inhalation QID PRN atorvastatin 10 mg PO DAILY 90 days calcium carbonate 600 mg PO BID 90 days cetirizine 10 mg PO DAILY PRN 30 days cholecalciferol (vitamin D3) 50 mcg PO DAILY 90 days cyanocobalamin (vitamin B-12) ER 1,000 mcg PO DAILY 90 days fluticasone propionate 50 mcg/actuation 1 spray intranasal DAILY PRN 30 days lidocaine 5% (Lidoderm) 1 patch topical DAILY lisinopril 10 mg PO DAILY 90 days lorazepam 0.5 mg PO ONCE PRN magnesium 250 mg PO DAILY naproxen 500 mg PO BID PRN 30 days neomycin-polymyxin B-dexameth 1 appl ophthalmic (eye) TID oxycodone 5 mg PO Q8H PRN 5 days tizanidine 2 mg PO BID PRN 30 days Ventolin HFA 90 mcg/actuation (albuterol sulfate) 2 puffs inhalation Q6H PRN 30 days NS vitamin E (dl, acetate) 45 mg PO DAILY HPI HPI Comments History of Present Illness Details Here today with concerns over conjunctivitis in the right eye that is not getting better. She saw her salesperson florist supplies on and was prescribed an ointment. She has been applying the ointment around the eyelid and continues with conjunctivitis symptoms. She was not aware that she was supposed to be applying this into the eye and not on the eyelids. [facility] Medical History PMB (postmenopausal bleeding) Uterine prolapse Hyperparathyroidism Productive cough URI (upper respiratory infection) Polyuria B12 deficiency Hypovitaminosis D Proteinuria Hypertriglyceridemia Impaired glucose tolerance Surgical History Hx of tubal ligation Family History Father Arthritis Mother No problems noted. Social History Housing: Apartment Alcohol intake: never Patient Tobacco Use Status: Never used Tobacco e-Cigarette/Vaping Use: Never Used Second Hand Smoke Exposure: No service: No Current occupational status: unemployed Cognitive needs: No Hearing needs: No Vision needs: Yes Female Reproductive History Menstrual Age of Menarche: 12 Review of Systems Const All systems reviewed & are unremarkable except as noted in HPI and below Physical Exam Vital Signs: Last Vital Signs Temp 98.4 F 09/12/23 11:23 Pulse 75 09/12/23 11:23 BP 100/54 L 09/12/23 11:23 Pulse Ox 95 09/12/23 11:23 Oxygen Delivery Method Room Air 09/12/23 11:23 BMI result Body Mass Index 27.8 Const Other: Awake alert oriented Conjunctival injection with purulent drainage in the right Assessment & Plan Assessment & Plan (1) Conjunctivitis: Code(s): H10.9 - Unspecified conjunctivitis Qualifiers: Conjunctivitis type: acute Acute conjunctivitis type: bacterial Laterality: right Qualified Code(s): H10.31 - Unspecified acute conjunctivitis, right eye Plan: . Plan . Medications: New neomycin-polymyxin B-dexameth 3.5 mg/g-10,000 unit/g-0.1 % space evenly during waking hours 1 appl ophthalmic (eye) TID 3.5 grams 0RF Patient Instructions: Shown how to apply the eye ointment properly during the visit today. She reports that due to a language barrier she misunderstood the directions and she now understands how to use the eye ointment properly. I have sent in a new prescription of the same medication to be used as directed. Advised against wiping eyes with tissues as the fibrous can get into her eyes is and cause worsening irritation. Should she have any further issues she should follow up with her salesperson florist supplies. Put cold or warm wet cloths on your eye a few times a day if the eye hurts. Do not wear contact lenses or eye makeup until the pink eye is gone. Throw away any eye makeup you were using when you got pink eye. Clean your contacts and storage case. Wash bed linen after 24 hours of antibiotic eye drop use. Do not share eye drops. Use a clean towel to wash your face each day until symptoms are gone. This will help prevent recurrence. What is pink eye? Monette eye is a term people use to describe an infection or irritation of the eye. The medical term for pink eye is conjunctivitis. If you have pink eye, your eye (or eyes) might: ?Turn pink or red ?Weep or ooze a gooey liquid ?Become itchy or burn ?Get stuck shut, especially when you first wake up Monette eye can be caused by an infection, allergies, or an unknown irritation. Can you catch pink eye from someone else? Yes. When pink eye is caused by an infection, it can spread easily. Usually, people catch it from touching something that has been in contact with an infected person's eye. It can also be spread when an infected person touches someone else, and then that person touches their eye. If someone you know has pink eye, avoid touching their pillowcases, towels, or other personal items. When should I see a doctor or nurse? See your doctor or nurse if your eye hurts, or if you still have trouble seeing clearly after blinking. If you do not have these problems, but think you might have pink eye, your doctor or nurse might be able to give you advice over the phone. Can pink eye be treated? Most cases of pink eye go away on their own without treatment. But some types of pink eye can be treated. When pink eye is caused by infection, it is usually caused by a virus, so antibiotics will not help. Still, pink eye caused by a virus can last several days. ?Monette eye caused by an infection with bacteria can be treated with antibiotic eye drops, gel, or ointment. ?Monette eye caused by other problems can be treated with eye drops normally used to treat allergies. These drops will not cure the pink eye, but they can help with itchiness and irritation. When using eye drops for infection, do not touch your healthy eye after touching your infected eye. Also, do not touch the bottle or dropper directly onto 1 eye and then use it in the other. These things can cause the infection to spread from 1 eye to the other. If your eyelids feel swollen, it might also help to hold a cool wet cloth on the area. What if I wear contact lenses? If you wear contact lenses and you have symptoms of pink eye, it is really important to have a doctor look at your eyes. In people who wear contacts, the symptoms of pink eye can be caused by corneal abrasion. Corneal abrasion is a scratch on the eye and can be a serious problem. During treatment for eye infections, you might need to stop wearing your contacts for a short time. If your contacts are disposable, throw them away and use new ones. If your contacts are not disposable, you need to carefully clean them. You should also throw away your contact lens case and get a new one. When can I go back to work or school? If you have pink eye caused by an infection, remember that it can spread very easily. The best way to avoid spreading it is to stay away from other people until you no longer have symptoms. If this is not possible, wash your hands often (figure 1). It's also important to avoid touching your eyes and sharing items that could spread the infection. Schools and day cares usually have rules about when a child with pink eye can return. If a child has a bacterial infection, they will probably need to stay home until they have gotten antibiotic eye drops or ointment for 24 hours. Can pink eye be prevented? To keep from getting or spreading pink eye caused by an infection: ?Wash your hands often with soap and water. ?Try not to touch your eyes. ?Avoid sharing towels, bedding, or other personal items with a person who has pink eye. If your pink eye is caused by allergies, it might help to stay inside with the windows shut as much as possible during peak allergy seasons. What problems should I watch for? Call your doctor or nurse if: ?You have trouble seeing clearly after blinking. ?Your eye is still red or has drainage after 3 days. ?You have eye pain that is getting worse. Coding Level of Care Code Est Pt Level 3 (34423) Diagnoses Acute bacterial conjunctivitis of right eye H10.31 Conjunctivitis type: acute Acute conjunctivitis type: bacterial Laterality: right
== END 2023-09-12 11:44 | disposition home or self-care (01) ==
PROVIDERS: PCP Internal Medicine; Visit Provider Nurse Practitioner Family
DX: H10.31 Unspecified acute conjunctivitis, right eye (principal)
CPT/HCPCS: 99051; 99213

== ENCOUNTER 2023-10-08 13:00 | Outpatient (RCR) | payer MEDICARE, OTHER, SELFPAY ==
--- NOTE | 2023-09-14 12:52 | MHC.PT.EP ---
[facility] [place] Office [place] Office [place] Office [address] Jose Guadalupe Nino [address] [phone] F: [phone] F: [phone] F: [phone] F: [phone] Physical Therapy Plan of Care Date of Evaluation: 09/14/23 Date of Surgery: Diagnosis: spinal stenosis, lumbar radiculopathy Assessment: Patient is a 68 year old R handed female who presents with s/s consistent with spinal stenosis, lumbar radiculopathy. She does not work at this time but does enjoy staying active. Patient past medical history includes impaired glucose tolerance. Current impairments include pain, posture, ROM, strength, flexibility, activity tolerance and functional mobility. Functional limitations include decreased ability to walk, stand, transfer, bend, extend. Patient is motivated with good rehab potential. Skilled PT will address impairments and functional limitations in order to achieve goals. Frequency and Duration: The patient will be seen 2x/weeks for 5 weeks Short Term Goals: I with HEP -2 weeks AROM rotation 75% and pain free - 3 weeks AROM extension 50% and pain free - 3 weeks Able to walk 10 minutes without increased pain - 3 weeks S/s centralized - 3 weeks Vat Overhauler Goals: Oswestry 20% or less - 5 weeks Able to walk 20 minutes without increased pain - 5 weeks Able to return to all prior activities with 2/10 pain max - 5 weeks Treatment Plan: Modalities to reduce pain, spasms and effusion. Manual therapy to restore motion and function. Therapeutic exercise to improve strength and flexibility. Neuromuscular re-education for posture and balance. Therapeutic activities to return to functional activities of daily living. Electronically signed by: Epifanio Garzon, PT Please sign and return to therapist. Thank you for your referral.
--- NOTE | 2023-10-08 13:52 | MHC.PT.DC ---
[facility] [place] Office [place] Office [place] Office [address] Jose Guadalupe Nino [address] [phone] F: [phone] F: [phone] F: [phone] F: [phone] Physical Therapy Discharge Report Diagnosis: spinal stenosis, lumbar radiculopathy Date of Surgery: Date of Evaluation: 09/14/23 Date of Discharge: Treatments to Date: 8 Cancellations to Date: No Shows to Date: Discharge Status: Recommend MD Follow-up Discharge Summary: 10/08/23: pt continues with similar symptomatic presentation since evaluation. we have not been able to achieve any sustained progress and pt has been discouraged in recent weeks. at this time I will d/c from PT and refer her back to her referring MD for next best steps in patient care/management given the likely origin of her s/s and lack of optimistic response to skilled PT. 10/05/23: pt progress continues to be minimal. we will likely d/c and refer next visit as pt has not been able to sustain progress and imaging findings are concerning. 10/01/23: today pt s/s were back to square one. we have not been able to sustain progress thus far it seems. 09/28/23: pt progressing symptomatically. less pain with daily activities and walking. continue to progress as tolerated. 09/25/23: pt with less s/s overall. still with antalgic gait. we discussed this today at length and possible ways to reduced limp. 09/22/23: pt progressing slowly. s/s similar to onset. still compliant with HEP. progress as tolerated. 09/16/23: pt with s/s unchanged. we issued HEP today and will progress as tolerated. Patient is a 68 year old R handed female who presents with s/s consistent with spinal stenosis, lumbar radiculopathy. She does not work at this time but does enjoy staying active. Patient past medical history includes impaired glucose tolerance. Current impairments include pain, posture, ROM, strength, flexibility, activity tolerance and functional mobility. Functional limitations include decreased ability to walk, stand, transfer, bend, extend. Patient is motivated with good rehab potential. Skilled PT will address impairments and functional limitations in order to achieve goals. Electronically signed by: Epifanio Garzon, PT Please sign and return to therapist. Thank you for your referral.
== END 2024-02-24 10:34 | disposition home or self-care (01) ==
LOC: HO.PTCHIC 13:00
PROVIDERS: PCP Internal Medicine; Visit Provider Nurse Practitioner Family
DX: M48.061 Spinal stenosis, lumbar region without neurogenic claudication (principal); M54.17 Radiculopathy, lumbosacral region; M54.50 Low back pain, unspecified
CPT/HCPCS: 97014; 97110; 97140; 97162

== ENCOUNTER 2023-10-09 | Outpatient (REF) | payer MEDICARE, MEDICAID, SELFPAY ==
--- NOTE | 2023-10-09 | ECG_ITS ---
Test Reason : PREOP Blood Pressure : / mmHG Vent. Rate : 063 BPM Atrial Rate : 063 BPM P-R Int : 146 ms QRS Dur : 138 ms QT Int : 430 ms P-R-T Axes : 043 046 031 degrees QTc Int : 440 ms Normal sinus rhythm Right bundle branch block Abnormal ECG When compared with ECG of 25-SEP-2022 14:52, No significant change was found Referred By: Catherine Schneider Electronically Signed By:Sincere Darnell
[2023-10-09 13:04] VITALS: BP 142/68; PULSE 65; RESP 16; O2SAT 97; BMI 28.9
--- NOTE | 2023-10-09 13:37 | HO.ANESPROP2 ---
HPI - Anesthesia Eval Consult details Narrative: 10/22/23: Pt Covid +, awaiting reschedule 68yo F for Left?L4-5 MicroLumbar discectomy Recent pink eye. No URI involvement No CP/SOB with minimal activity at this time. Prior to pain (July 2023) No CP/SOB with walks, hikes Asthma. Stable. No rescue inhaler since winter PMF Active Problems Active Problems: All Active Problems Conjunctivitis (Acute) Osteopenia (Acute) Lumbar spinal stenosis (Acute) Chronic coccygeal pain (Acute) Sacroiliac joint pain (Acute) Cervical spondylosis (Acute) Lumbosacral radiculopathy (Acute) Low back pain radiating to left leg (Acute) Physical exam (Acute) Left sided sciatica (Acute) Lesion of cervix (Acute) Cough (Acute) Laryngitis (Acute) Right shoulder pain (Acute) Essential hypertension (Acute) CLARY (generalized anxiety disorder) (Acute) Dyslipidemia (Acute) PMB (postmenopausal bleeding) (Acute) Uterine prolapse (Acute) Hyperparathyroidism (Acute) Productive cough (Acute) URI (upper respiratory infection) (Acute) Polyuria (Acute) B12 deficiency (Acute) Hypovitaminosis D (Acute) Proteinuria (Acute) Hypertriglyceridemia (Acute) Impaired glucose tolerance (Acute) Past Medical History Medical History (Updated 10/09/23 @ 13:33 by Luz Orourke RN) Seasonal allergies Asthma PMB (postmenopausal bleeding) Uterine prolapse Hyperparathyroidism Productive cough URI (upper respiratory infection) Polyuria B12 deficiency Hypovitaminosis D Proteinuria Hypertriglyceridemia Impaired glucose tolerance Family History Family History Father Arthritis Mother No problems noted. Family history of problems with anesthesia: No Surgical History Surgical History (Updated 10/09/23 @ 13:29 by Luz Orourke RN) Hx of colonoscopy Hx of tubal ligation (1989) History of Problems with Anesthesia: No Social History Social History (Updated 10/09/23 @ 13:28 by Luz Orourke, RAMSEY) Household Members: Spouse Housing: House Are you a primary tree care foreman to a significant other at home: No Do you presently have visiting nurse or other home services: No Alcohol intake: never Comment: aware of trip hazard Patient Tobacco Use Status: Never used Tobacco e-Cigarette/Vaping Use: Never Used Second Hand Smoke Exposure: No Use of substances other than those prescribed or required for medical reasons: No Have you been hit, kicked, punched, or otherwise hurt by someone within the past year? If so, by whom?: No Spiritual Healthcare Practices: none [employer] Healthcare Practices: none Cultural Healthcare Practices: none Are you DNR?: No Advance Directives: No Advance Directives Information Provided: Yes Advance Directives on File: No Recently lost weight without trying: No Nutrition Risks: No Nutritional Risk service: No Current occupational status: unemployed Cognitive needs: No Hearing needs: No Vision needs: Yes Meds Allergies Allergy/AdvReac Type Severity Reaction Status Date / Time Iodinated Contrast Media Allergy Intermediate Hives Verified 10/09/23 13:27 ezetimibe [Zetia] AdvReac Intermediate ? memory Verified 10/09/23 13:27 loss ? rosuvastatin [From Crestor] AdvReac Intermediate Muscle Verified 10/09/23 13:27 cramps Lamisil Allergy Mild Rash Uncoded 10/09/23 13:27 Simvastatin AdvReac Intermediate myalgias Uncoded 10/09/23 13:27 Home Medications ?Medication ?Instructions ?Recorded ?Confirmed ?Last Taken ?Type magnesium 250 mg tablet 250 mg PO DAILY 03/04/23 10/08/23 Unknown History vitamin E (dl, acetate) 45 mg (100 45 mg PO DAILY 03/04/23 10/08/23 Unknown History unit) capsule acetaminophen 500 mg tablet 1,000 mg PO Q6H PRN Pain 10/08/23 10/08/23 Unknown History (Acetaminophen Extra Strength) lidocaine 5 % topical patch 1 patch topical DAILY PRN Pain 10/08/23 10/08/23 Unknown History (Lidoderm) cyanocobalamin (vitamin B-12) 1,000 mcg PO Q OTHER DAY 10/09/23 10/09/23 Unknown History 1,000 mcg tablet,extended release Exam Height,Weight and Vital Signs: Height 5 ft 3 in Weight 73.936 kg Last Vital Signs Pulse 65 10/09/23 13:04 Resp 16 10/09/23 13:04 BP 142/68 H 10/09/23 13:04 Pulse Ox 97 10/09/23 13:04 O2 Del Method Room Air 10/09/23 13:04 Pertinent Lab Results Pertinent Lab Results: Lab Results 05/24/24 Range/Units 14:12 WBC 7.4 (4.8-10.8) X10*3/uL RBC 4.45 (4.20-5.50) X10*6/uL Hgb 12.8 (12.0-16.0) g/dl Hct 37.9 (37.0-47.0) % MCV 85.2 (80.0-98.0) fL MCH 28.8 (27.0-33.0) pg MCHC 33.8 (31.0-35.0) g/dl RDW 13.9 (11.0-16.0) % Plt Count 225 (160-400) X10*3/uL MPV 10.6 (9.4-12.3) fL Absolute Nucleated RBC 0.000 (0.0-0.012) X10*3/uL Nucleated RBC % (auto) 0.0 (0.0-0.2) /100WBC Sodium 140 (135-145) mmol/L Potassium 4.2 (3.3-5.1) mmol/L Chloride 107 (96-108) mmol/L Carbon Dioxide 26 (22-29) mmol/L Anion Gap 11 L (12-20) BUN 24 H (9-16) mg/dL Creatinine 0.90 (0.5-1.4) mg/dL Estim Creat Clear Calc 56.8 Estimated GFR > 60 Random Glucose 108 (60-115) mg/dL Estimat Average Glucose 120 mg/dL Hemoglobin A1c % 5.8 (<6.0) % Calcium 10.0 (8.4-10.2) mg/dL Narrative Narrative: EKG 09/2023 Vent. Rate : 063 BPM Atrial Rate : 063 BPM P-R Int : 146 ms QRS Dur : 138 ms QT Int : 430 ms P-R-T Axes : 043 046 031 degrees QTc Int : 440 ms Normal sinus rhythm Right bundle branch block Abnormal ECG When compared with ECG of 25-SEP-2022 14:52, No significant change was found Airway Mallampati Class: III TM Dist: >3cm Neck ROM: Full Denture: Upper Loose/Missing/Broken Teeth: Yes (missing lower teeth ~8 remain) Heart: RRR Lungs: CTAB Assessment and Plan Assessment Anesthesia Assessment: Anesthesia Plan Discussed and PAT Visit Final Anesthetic Review Family History of Problems with Anesthesia: No History of Problems with Anesthesia: No
[2023-10-09 14:31] LABS: Hematocrit 37.9 % (37.0-47.0); Hemoglobin 12.8 g/dl (12.0-16.0); Mean Corpuscular HGB Conc 33.8 g/dl (31.0-35.0); Mean Corpuscular Hemoglobin 28.8 pg (27.0-33.0); Mean Corpuscular Volume 85.2 fL (80.0-98.0); Mean Platelet Volume 10.6 fL (9.4-12.3); Platelet Count 225 X10*3/uL (160-400); Red Blood Count 4.45 X10*6/uL (4.20-5.50); Red Cell Distribution Width 13.9 % (11.0-16.0); White Blood Count 7.4 X10*3/uL (4.8-10.8)
[2023-10-09 14:40] LABS: Estimated Average Glucose 120 mg/dL; Hemoglobin A1c % 5.8 % (<6.0)
[2023-10-09 14:55] LABS: Anion Gap 11 (12-20); Blood Urea Nitrogen 24 mg/dL (9-16); Carbon Dioxide 26 mmol/L (22-29); Chloride 107 mmol/L (96-108); Creatinine Clr Calc Pharmacy 56.8; Estimated Glomerular Filt Rate > 60; Glucose Random 108 mg/dL (60-115); Potassium 4.2 mmol/L (3.3-5.1); Sodium 140 mmol/L (135-145)
== END 2023-10-09 00:01 | disposition home or self-care (01) ==
LOC: HO.PAT
PROVIDERS: Nurse Practitioner; PCP Internal Medicine; Visit Provider Neurological Surgery
DX: Z01.818 Encounter for other preprocedural examination (principal); Z13.1 Encounter for screening for diabetes mellitus; I45.10 Unspecified right bundle-branch block
CPT/HCPCS: 36415; 80048; 83036; 85027; 93005

== ENCOUNTER → 2023-10-09 14:17 | Outpatient (BNV) | payer MEDICARE, MEDICAID, SELFPAY | PROVIDERS: PCP Internal Medicine; Visit Provider Internal Medicine Cardiovascular Disease | DX: R94.31 Abnormal electrocardiogram [ECG] [EKG] (principal) | CPT/HCPCS: 93010 ==

== ENCOUNTER 2023-11-27 08:15 | Outpatient (REF) | payer MEDICARE, OTHER, SELFPAY ==
[2023-11-27 09:46] LABS: Alanine Aminotransferase 16 U/L (0-31); Albumin Level 4.1 g/dL (3.5-5.0); Alkaline Phosphatase 63 U/L (39-117); Anion Gap 11 (12-20); Aspartate Amino Transferase 17 U/L (5-31); Bilirubin Total 0.5 mg/dL (0.0-1.0); Blood Urea Nitrogen 20 mg/dL (9-16); Calcium 9.7 mg/dL (8.4-10.2); Carbon Dioxide 27 mmol/L (22-29); Chloride 107 mmol/L (96-108); Cholesterol 189 mg/dL (<200); Estimated Glomerular Filt Rate > 60; Glucose Fasting 112 mg/dL (60-99); HDL Cholesterol 44 mg/dL (>40); LDL Cholesterol Calculated 117 mg/dL (<100); Potassium 4.2 mmol/L (3.3-5.1); Sodium 141 mmol/L (135-145); Total Protein 7.2 g/dL (6.5-8.0); Triglycerides 143 mg/dL (<150)
[2023-11-27 09:47] LABS: Vitamin D 25-OH Total 39.4 ng/mL (>30)
[2023-11-27 09:48] LABS: Parathyroid Hormone Intact 65.6 pg/mL (8.7-77.1)
[2023-11-27 10:49] LABS: Folate 17.7 ng/mL (> or = 4.0); Vitamin B12 1178 pg/mL (200-900)
[2023-11-29 10:28] LABS: Calcium, Ionized 5.3 mg/dL (4.7-5.5)
== END 2023-11-27 08:16 | disposition home or self-care (01) ==
LOC: HO.LAB 08:15
PROVIDERS: PCP Internal Medicine; Visit Provider Internal Medicine
DX: E53.8 Deficiency of other specified B group vitamins (principal); E55.9 Vitamin D deficiency, unspecified; E21.3 Hyperparathyroidism, unspecified; E78.5 Hyperlipidemia, unspecified; R73.02 Impaired glucose tolerance (oral)
CPT/HCPCS: 36415; 80053; 80061; 82306; 82330; 82607; 82746; 83970

== ENCOUNTER 2023-11-30 09:49 | Outpatient (AMB) | payer MEDICARE, MEDICAID, SELFPAY ==
[2023-11-30 09:59] VITALS: BP 110/68; PULSE 72; O2SAT 98; BMI 28.0
--- NOTE | 2023-11-30 09:59 | A.OFFPC_ITS ---
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 memory loss ? rosuvastatin [From Crestor] Adverse Reaction (Intermediate, Verified 11/30/23 10:10) Muscle cramps Lamisil Allergy (Mild, Uncoded 11/30/23 10:10) Rash Simvastatin Adverse Reaction (Intermediate, Uncoded 11/30/23 10:10) myalgias Medication List - Last Reconciled 11/30/23 by Jessica Smiley MD acetaminophen (Acetaminophen Extra Strength) 1,000 mg PO Q6H PRN albuterol sulfate 90 mcg/actuation 1 inh inhalation QID PRN atorvastatin 10 mg PO DAILY 90 days calcium carbonate 600 mg PO BID 90 days cetirizine 10 mg PO DAILY PRN 30 days cholecalciferol (vitamin D3) 50 mcg PO DAILY 90 days cyanocobalamin (vitamin B-12) ER 1,000 mcg PO Q OTHER DAY fluticasone propionate 50 mcg/actuation 1 spray intranasal DAILY PRN 30 days lidocaine 5% (Lidoderm) 1 patch topical DAILY PRN lisinopril 10 mg PO DAILY 90 days lorazepam 0.5 mg PO ONCE PRN magnesium 250 mg PO DAILY oxycodone 5 mg PO Q8H PRN 5 days Ventolin HFA 90 mcg/actuation (albuterol sulfate) 2 puffs inhalation Q6H PRN 30 days NS vitamin E (dl, acetate) 45 mg PO DAILY Tobacco use date assessed: 07/23/23 Fall risk assessment: No Falls in past year Last assessed Fall Risk: 11/30/23 Dental Screening Dental Screen Date: 07/23/23 HPI HPI Comments History of Present Illness Details This is a 68-year-old female with hypertension, dyslipidemia, osteopenia and impaired glucose tolerance that comes today for follow-up on her conditions. Blood pressure stable. Cholesterol well controlled and she complains of some foggy brain due to statin therefore I told her to stop atorvastatin and will recheck cholesterol in 5 months. Last DEXA scan shows osteopenia and she is on calcium with vitamin-D. She does have elevated fasting blood glucose showing impaired glucose tolerance but not diabetes. She denies any polyuria, polydipsia or unintentional weight loss. Fasting blood glucose will be recheck in 5 months. [facility] Medical History (Updated 11/30/23 @ 12:13 by Jessica Smiley MD) Seasonal allergies Asthma PMB (postmenopausal bleeding) Uterine prolapse Hyperparathyroidism Productive cough URI (upper respiratory infection) Polyuria B12 deficiency Hypovitaminosis D Proteinuria Hypertriglyceridemia Impaired glucose tolerance Surgical History Hx of colonoscopy Hx of tubal ligation (1989) Family History Father Arthritis Mother No problems noted. Social History Household Members: Spouse Housing: House Are you a primary home care aide to a significant other at home: No Do you presently have visiting nurse or other home services: No Alcohol intake: never Comment: aware of trip hazard Patient Tobacco Use Status: Never used Tobacco e-Cigarette/Vaping Use: Never Used Second Hand Smoke Exposure: No service: No Current occupational status: unemployed Cognitive needs: No Hearing needs: No Vision needs: Yes Female Reproductive History Menstrual Age of Menarche: 12 Questionnaire PHQ-9 Over the last 2 weeks, how often have you been bothered by any of the following problems? 1. Little interest or pleasure in doing things: not at all 2. Feeling down, depressed, or hopeless: not at all 3. Trouble falling or staying asleep, or sleeping too much: not at all 4. Feeling tired or having little energy: not at all 5. Poor appetite or overeating: not at all 6. Feeling bad about yourself - or that you are a failure or have let yourself or your family down: not at all 7. Trouble concentrating on things, such as reading the newspaper or watching television: not at all 8. Moving or speaking so slowly that other people could have noticed. Or the opposite - being so fidgety or restless that you have been moving around a lot more than usual: not at all 9. Thoughts that you would be better off or of hurting yourself in some way: not at all Total score: 0 Depression Screening Interpretation: Negative Depression Screening Done: Yes 72121 - PHQ-9 Billing: Yes Source: Developed by Drs. Julio Álvarez, Fernanda Lugo, Patrick Fontana and colleagues, with an educational saul from [employer]. Thrive Questionnaire Date Thrive assessed: 07/23/23 AUDIT C Alcohol Use Questionnaire (AUDIT-C) 1. How often do you have a drink containing alcohol?: Never Total Score: 0 Score Reviewed/Action Taken: No CLARY-7 AMB Questionnaire CLARY-7 Date CLARY - 7 assessed: 07/23/23 Source: Developed by Drs. Julio Álvarez, Fernanda Lugo, Patrick Fontana and colleagues, with an educational saul from [employer]. Review of Systems Const All systems reviewed & are unremarkable except as noted in HPI and below ENT Denies change in voice, Denies nasal discharge and Denies sinus pain Card Denies chest pain at rest, Denies chest pain with activity, Denies edema, Denies irregular heart rhythm, Denies claudication, Denies dyspnea, Denies dyspnea on exertion, Denies orthopnea, Denies paroxysmal nocturnal dyspnea and Denies slow heart rate Resp Denies cough, Denies dyspnea and Denies dyspnea on exertion GI Denies abdominal pain, Denies change in bowel habits, Denies excessive flatus, Denies nausea and Denies vomiting Physical exam (Primary Care) Vital Signs: Last Vital Signs Pulse 72 11/30/23 09:59 BP 110/68 11/30/23 09:59 Pulse Ox 98 11/30/23 09:59 Oxygen Delivery Method Room Air 11/30/23 09:59 BMI result Body Mass Index 28.0 Tobacco/Smoking Status: Tobacco use Status Tobacco use date assessed 07/23/23 11/30/23 10:03 Patient Tobacco Use Status Never used Tobacco 11/30/23 10:03 Tobacco use type 07/24/23 08:15 e-Cigarette/Vaping Use Never Used 11/30/23 10:03 PHQ-9: PHQ-9 Score PHQ-9: Total score 0 11/30/23 10:14 Depression Screening Interpretation: Negative Thrive Assessment: Date of Thrive Assessment Date Thrive assessed 07/23/23 11/30/23 10:03 Resp Effort & Inspection: normal respiratory effort Auscultation: clear to auscultation bilaterally Cardio Jugular venous distension: no JVD Rate: regular rate Rhythm: regular rhythm Heart sounds: S1 normal heart sound present and S2 normal heart sound present GI Inspection: Yes normal to inspection Palpation (GI): Soft to palpation and nontender Auscultation: normal bowel sounds Extrem General: Yes full ROM Assessment and Plan Assessment & Plan (1) Impaired glucose tolerance: Code(s): R73.02 - Impaired glucose tolerance (oral) Plan: Start low-carbohydrate diet. Repeat fasting blood glucose in 5 months. (2) Essential hypertension: Code(s): I10 - Essential (primary) hypertension Plan: Continue lisinopril. Blood pressure goal is equal or less than 130/80. (3) Dyslipidemia: Code(s): E78.5 - Hyperlipidemia, unspecified Plan: Start statins. Repeat lipid panel in 5 months. Continue low-cholesterol diet. (4) Osteopenia: Code(s): M85.80 - Other specified disorders of bone density and structure, unspecified site Qualifiers: Osteopenia location: unspecified Qualified Code(s): M85.80 - Other specified disorders of bone density and structure, unspecified site Plan: Continue calcium with vitamin-D. Repeat DEXA scan in 2 years. Orders: Orders Vitamin B12 and Folate 5 Months E53.8 - Deficiency of other specified B group vitamins Lipid Panel 5 Months E78.5 - Hyperlipidemia, unspecified Vitamin D 25-OH Total 5 Months E55.9 - Vitamin D deficiency, unspecified Comprehensive [place]. Panel Fast 5 Months M85.80 - Other specified disorders of bone density and structure, unspecified site Medications: Changed From cyanocobalamin (vitamin B-12) ER 1,000 mcg PO Q OTHER DAY To cyanocobalamin (vitamin B-12) ER 1,000 mcg PO .three times a week Refilled lisinopril 10 mg PO DAILY 90 tabs 1RF 90 days cholecalciferol (vitamin D3) 50 mcg PO DAILY 90 caps 1RF 90 days Discontinued atorvastatin Discontinued Reason: Patient Completed Course 10 mg PO DAILY 90 days 90 tabs 1RF Coding Level of Care Code Est Pt Level 4 (57355) Complex EM visit Add On G2211 Diagnoses Impaired glucose tolerance R73.02 Essential hypertension I10 Dyslipidemia E78.5 Osteopenia, unspecified location M85.80 Osteopenia location: unspecified Time Spent (min) 22
== END 2023-11-30 10:30 | disposition home or self-care (01) ==
PROVIDERS: PCP Internal Medicine; Visit Provider Internal Medicine
DX: R73.02 Impaired glucose tolerance (oral) (principal); I10 Essential (primary) hypertension; E78.5 Hyperlipidemia, unspecified; M85.80 Other specified disorders of bone density and structure, unspecified site
CPT/HCPCS: 99214; G2211

== ENCOUNTER 2024-02-16 14:42 | Outpatient (REF) | payer MEDICARE, MEDICAID, SELFPAY ==
[2024-02-16 17:24] LABS: Influenza A PCR NEGATIVE (Negative); Influenza B PCR NEGATIVE (Negative); Resp Syncy Virus RNA Qual PCR NEGATIVE (Negative); SARS COV2 PCR INHOUSE NEGATIVE (Negative)
== END 2024-02-16 14:43 | disposition home or self-care (01) ==
LOC: HO.LAB 14:42
PROVIDERS: PCP Internal Medicine; Visit Provider Nurse Practitioner Family
DX: R05.9 Cough, unspecified (principal); R06.2 Wheezing
CPT/HCPCS: 0241U; 99212

== ENCOUNTER 2024-02-16 14:42 | Outpatient (AMB) | payer MEDICARE, MEDICAID, SELFPAY ==
[2024-02-16 15:15] VITALS: BP 134/82; PULSE 80; TEMP 36.4; O2SAT 96; BMI 27.9
--- NOTE | 2024-02-16 15:15 | AM.OFFWIN_ITS ---
Intake Vital Signs 02/16/24 15:15 Height 5 ft 4 in Weight 162 lb 8 oz BMI 27.9 BP 134/82 Blood Pressure Location Lt brachial Position Sitting Pulse 80 Pulse Source Pulse Oximeter Temp 97.6 F Temp Source Temporal Artery Scan Pulse Oximetry (%) 96 Oxygen Delivery Method Room Air Intake Visit Reasons: EP-sore throat Intake Note: Pt presents to the office today for c/o chest congestion and a cough. Pt states this has been going on for about 2-3 weeks. Patient Tobacco Use Status: Never used Tobacco Allergies Iodinated Contrast Media Allergy (Intermediate, Verified 02/16/24 15:17) Hives ezetimibe [Zetia] Adverse Reaction (Intermediate, Verified 02/16/24 15:17) ? memory loss ? rosuvastatin [From Crestor] Adverse Reaction (Intermediate, Verified 02/16/24 15:17) Muscle cramps Lamisil Allergy (Mild, Uncoded 02/16/24 15:17) Rash Simvastatin Adverse Reaction (Intermediate, Uncoded 02/16/24 15:17) myalgias HPI HPI Comments History of Present Illness Details 68 y/o female patient who presents to [facility] walk in clinic with c/o chest congestion, wheezing and cough. Pt states this has been going on for about 2-3 weeks. Denies fevers, chills, nausea or vomiting. [facility] Medical History (Updated 12/09/23 @ 14:35 by Luz Orourke RN) Personal history of COVID-19 (10/21/23) Seasonal allergies Asthma PMB (postmenopausal bleeding) Uterine prolapse Hyperparathyroidism Productive cough URI (upper respiratory infection) Polyuria B12 deficiency Hypovitaminosis D Proteinuria Hypertriglyceridemia Impaired glucose tolerance Surgical History Hx of colonoscopy Hx of tubal ligation (1989) Family History Father Arthritis Mother No problems noted. Social History Household Members: Spouse Housing: House Are you a primary critical care nurse practitioner to a significant other at home: No Do you presently have visiting nurse or other home services: No Alcohol intake: never Comment: aware of trip hazard Patient Tobacco Use Status: Never used Tobacco e-Cigarette/Vaping Use: Never Used Second Hand Smoke Exposure: No service: No Current occupational status: unemployed Cognitive needs: No Hearing needs: No Vision needs: Yes Female Reproductive History Menstrual Age of Menarche: 12 Physical Exam Vital Signs: Last Vital Signs Temp 97.6 F 02/16/24 15:15 Pulse 80 02/16/24 15:15 BP 134/82 02/16/24 15:15 Pulse Ox 96 02/16/24 15:15 Oxygen Delivery Method Room Air 02/16/24 15:15 BMI result Body Mass Index 27.9 Const General: cooperative and no acute distress Orientation/consciousness: patient oriented x3 HEENT Head: Yes normocephalic Ears: external ears normal and TM abnormal erythematous and with fluid behind the TM General nose exam: Abnormal mucous membranes and turbinates present boggy and erythematous Face and sinus: Yes sinuses nontender Mouth: moist mucous membranes Throat: Yes postnasal drainage Resp Effort & Inspection: normal respiratory effort, able to speak in complete sentences and Actively coughing Auscultation: no crackles, no rales, rhonchi and wheezes Cardio Heart sounds: S1 normal heart sound present and S2 normal heart sound present Skin General skin exam: no rashes or lesions noted Neuro General: patient oriented x3, gait normal and moves all extremities Psych Speech and movement: Normal speech and movement present Assessment & Plan Assessment & Plan (1) Cough in adult: Code(s): R05.9 - Cough, unspecified Plan: Ordered SARs Ordered Abx OTC cough remedies Ordered Prednisone to help with wheezing. (2) Wheezing on auscultation: Code(s): R06.2 - Wheezing Plan: Ordered SARs Ordered Abx OTC cough remedies Ordered Prednisone to help with wheezing. Orders: Orders SARS-CoV2/FLU/RSV Today R09.89 - Other specified symptoms and signs involving the circulatory and respiratory systems Medications: New doxycycline hyclate 100 mg PO BID 10 days 20 caps 0RF R05.9 - Cough, unspecified, R06.2 - Wheezing benzonatate 100 mg PO TID 90 caps 0RF R05.9 - Cough, unspecified, R06.2 - Wheezing prednisone 50 mg PO DAILY 5 days 5 tabs 0RF R05.9 - Cough, unspecified, R06.2 - Wheezing Coding Level of Care Code Est Pt Level 3 (68142) Diagnoses Cough in adult R05.9 Wheezing on auscultation R06.2 Time Spent (min) 15
== END 2024-02-16 16:08 | disposition home or self-care (01) ==
PROVIDERS: PCP Internal Medicine; Visit Provider Nurse Practitioner Family
DX: R05.9 Cough, unspecified (principal); R06.2 Wheezing

== ENCOUNTER 2024-03-08 14:38 | Outpatient (AMB) | payer MEDICARE, MEDICAID, SELFPAY ==
[2024-03-08 14:43] VITALS: BP 130/70; PULSE 69; TEMP 36.9; O2SAT 97
--- NOTE | 2024-03-08 14:43 | MHC.OFFWIV ---
Intake Vital Signs 03/08/24 14:43 Weight 163 lb BP 130/70 Blood Pressure Location Rt brachial Position Sitting Pulse 69 Pulse Source Pulse Oximeter Temp 98.4 F Temp Source Oral Pulse Oximetry (%) 97 Oxygen Delivery Method Room Air Intake Visit Reasons: EP bronchitis/dizziness Intake Note: Patient here for bronchitis that has not improved after finishing doxy treatment. Patient Tobacco Use Status: Never used Tobacco Allergies Iodinated Contrast Media Allergy (Intermediate, Verified 03/08/24 14:44) Hives ezetimibe [Zetia] Adverse Reaction (Intermediate, Verified 03/08/24 14:44) ? memory loss ? rosuvastatin [From Crestor] Adverse Reaction (Intermediate, Verified 03/08/24 14:44) Muscle cramps Lamisil Allergy (Mild, Uncoded 03/08/24 14:44) Rash Simvastatin Adverse Reaction (Intermediate, Uncoded 03/08/24 14:44) myalgias Do you need a note to return to daycare/school/sports/work: No HPI HPI Comments History of Present Illness Details Patient is a 68-year-old female complaining of continued cough congestion, headaches and bilateral ear pain. She denies any fevers or shortness of breath. She states she came to this clinic on February 15 and was diagnosed with a respiratory infection was given doxycycline for 10 days which she stopped taking after 6 days because she could not tolerate it. She tells me she was also given prednisone which she took the full course for and some Tessalon Perles which she has been taking. She states that she has not feeling better after completing all these treatments [facility] Medical History (Updated 03/08/24 @ 15:05 by Aide Giordano PA-C) Personal history of COVID-19 (10/21/23) Seasonal allergies Asthma PMB (postmenopausal bleeding) Uterine prolapse Hyperparathyroidism Productive cough URI (upper respiratory infection) Polyuria B12 deficiency Hypovitaminosis D Proteinuria Hypertriglyceridemia Impaired glucose tolerance Surgical History Hx of colonoscopy Hx of tubal ligation (1989) Family History Father Arthritis Mother No problems noted. Social History Household Members: Spouse Housing: House Are you a primary director of career services to a significant other at home: No Do you presently have visiting nurse or other home services: No Alcohol intake: never Comment: aware of trip hazard Patient Tobacco Use Status: Never used Tobacco e-Cigarette/Vaping Use: Never Used Second Hand Smoke Exposure: No service: No Current occupational status: unemployed Cognitive needs: No Hearing needs: No Vision needs: Yes Female Reproductive History Menstrual Age of Menarche: 12 Review of Systems Const All systems reviewed & are unremarkable except as noted in HPI and below Physical Exam Vital Signs: Last Vital Signs Temp 98.4 F 03/08/24 14:43 Pulse 69 03/08/24 14:43 BP 130/70 03/08/24 14:43 Pulse Ox 97 03/08/24 14:43 Oxygen Delivery Method Room Air 03/08/24 14:43 Results AMB Rapid Strep AMB Rapid Strep Negative Last Edit by GARY Boothe on 03/08/24 14:50 Results Reviewed Results Reviewed: Laboratory Last Values Strep Scn Rapid Clinic Negative 03/08/24 14:49 Assessment & Plan Assessment & Plan (1) CAP (community acquired pneumonia): Code(s): J18.9 - Pneumonia, unspecified organism Qualifiers: Laterality: unspecified laterality Qualified Code(s): J18.9 - Pneumonia, unspecified organism Plan: Rapid strep negative. As patient is continuing to have symptoms, we will treat with Augmentin. Doxycycline did not seem to help so likely a different bacteria. Plan see above Orders: Orders AMB Rapid Strep Screen Today Alanna Fuentes PA-C Z13.9 - Encounter for screening, unspecified Medications: New amoxicillin-pot clavulanate 875-125 mg 1 tab PO Q12H 14 tabs 0RF Aide Giordano PA-C Coding Level of Care Code Est Pt Level 4 (03621) Diagnoses Community acquired pneumonia, unspecified laterality J18.9 Laterality: unspecified laterality
== END 2024-03-08 15:03 | disposition home or self-care (01) ==
PROVIDERS: PCP Internal Medicine; Visit Provider Physician Assistant
DX: Z13.9 Encounter for screening, unspecified (principal); J18.9 Pneumonia, unspecified organism

== ENCOUNTER → 2024-03-08 14:38 | Outpatient (BNVA) | payer MEDICARE, MEDICAID, SELFPAY | PROVIDERS: PCP Internal Medicine; Visit Provider Physician Assistant | DX: J18.9 Pneumonia, unspecified organism (principal) | CPT/HCPCS: 87880; 99212 ==

== ENCOUNTER 2024-04-05 12:44 | Outpatient (REF) | payer MEDICARE, MEDICAID, SELFPAY ==
[2024-04-05 14:44] LABS: Free T4 (Free Thyroxine) 0.88 ng/dL (0.71-1.85); Thyroid Stimulating Hormone 0.93 uIU/mL (0.32-4.0)
== END 2024-04-05 12:45 | disposition home or self-care (01) ==
LOC: HO.LAB 12:44
PROVIDERS: PCP Internal Medicine; Visit Provider Internal Medicine
DX: R94.6 Abnormal results of thyroid function studies (principal)
CPT/HCPCS: 36415; 84439; 84443

== ENCOUNTER 2024-04-28 10:38 | Outpatient (REF) | payer MEDICARE, MEDICAID, SELFPAY ==
[2024-04-28 12:31] LABS: Alanine Aminotransferase 23 U/L (0-31); Albumin Level 4.1 g/dL (3.5-5.0); Alkaline Phosphatase 57 U/L (39-117); Anion Gap 10 (12-20); Aspartate Amino Transferase 25 U/L (5-31); Bilirubin Total 0.5 mg/dL (0.0-1.0); Blood Urea Nitrogen 23 mg/dL (9-16); Calcium 10.1 mg/dL (8.4-10.2); Carbon Dioxide 28 mmol/L (22-29); Chloride 108 mmol/L (96-108); Cholesterol 239 mg/dL (<200); Estimated Glomerular Filt Rate > 60; Glucose Fasting 107 mg/dL (60-99); HDL Cholesterol 42 mg/dL (>40); LDL Cholesterol Calculated 149 mg/dL (<100); Potassium 4.4 mmol/L (3.3-5.1); Sodium 142 mmol/L (135-145); Total Protein 7.3 g/dL (6.5-8.0); Triglycerides 242 mg/dL (<150)
[2024-04-28 12:49] LABS: Folate 15.9 ng/mL (> or = 4.0); Vitamin B12 994 pg/mL (200-900)
== END 2024-04-28 10:39 | disposition home or self-care (01) ==
LOC: HO.LAB 10:38
PROVIDERS: PCP Internal Medicine; Visit Provider Internal Medicine
DX: E53.8 Deficiency of other specified B group vitamins (principal); E55.9 Vitamin D deficiency, unspecified; M85.80 Other specified disorders of bone density and structure, unspecified site; E78.5 Hyperlipidemia, unspecified
CPT/HCPCS: 36415; 80053; 80061; 82306; 82607; 82746

== ENCOUNTER 2024-05-02 09:54 | Outpatient (AMB) | payer MEDICARE, MEDICAID, SELFPAY ==
[2024-05-02 10:00] VITALS: BP 118/72; BMI 27.5
--- NOTE | 2024-05-02 10:00 | A.OFFPC_ITS ---
Vital Signs 05/02/24 10:00 Height 5 ft 4 in Weight 160 lb BMI 27.5 BP 118/72 Blood Pressure Location Lt brachial Position Sitting Intake Visit Reasons: bp Intake Note: Patient here for a follow up BP Lead Recoverer Required: No Accompanied by: Friend Allergies Iodinated Contrast Media Allergy (Intermediate, Verified 05/02/24 10:17) Hives ezetimibe [Zetia] Adverse Reaction (Intermediate, Verified 05/02/24 10:17) ? memory loss ? rosuvastatin [From Crestor] Adverse Reaction (Intermediate, Verified 05/02/24 10:17) Muscle cramps Lamisil Allergy (Mild, Uncoded 05/02/24 10:17) Rash Simvastatin Adverse Reaction (Intermediate, Uncoded 05/02/24 10:17) myalgias Medication List - Last Reconciled 05/02/24 by Jessica Smiley MD acetaminophen (Acetaminophen Extra Strength) 1,000 mg PO Q6H PRN albuterol sulfate 90 mcg/actuation 1 inh inhalation QID PRN calcium carbonate 600 mg PO BID 90 days cetirizine 10 mg PO DAILY PRN 30 days cholecalciferol (vitamin D3) 50 mcg PO DAILY 90 days cyanocobalamin (vitamin B-12) ER 1,000 mcg PO .three times a week lisinopril 10 mg PO DAILY 90 days magnesium 250 mg PO DAILY Ventolin HFA 90 mcg/actuation (albuterol sulfate) 2 puffs inhalation Q6H PRN 30 days NS vitamin E (dl, acetate) 45 mg PO DAILY Tobacco use date assessed: 07/23/23 Fall risk assessment: No Falls in past year Last assessed Fall Risk: 05/02/24 Dental Screening Dental Screen Date: 05/02/24 Did you have a dental visit in the last 12 months?: Yes Did you have a dental problem in the last 6 months where you did not have access to dental care?: No Was dental information given to patient?: Patient has dentist HPI HPI Comments History of Present Illness Details The patient is a 68-year-old female presenting with symptoms of a chronic cough. The onset of the cough is 2 months ago and it has been persistent with associated dry mouth. The patient denies fever, suggesting a possible chronic etiology rather than an acute one. The cough has impacted her daily activities, including interference with sleep. There is no history of significant exacerbations or severe exacerbating factors mentioned. Past medical history is notable for essential hypertension, prediabetes, and hyperlipidemia. The patient has experienced side effects from prior statin therapy, including elevated liver enzymes, leading to consideration of alternative lipid-lowering therapies like fibrates. No current significant pain or dermatopathy issues are reported, though monitoring is indicated. She is accompanied by friend. Blood pressure well controlled with lisinopril. Impaired glucose tolerance has improved. Denies any polyuria, polydipsia or unintentional weight loss. Both cholesterol and triglycerides are elevated. Dietary changes were advised. Blood work will be repeated in 6 months. [facility] Medical History (Updated 05/02/24 @ 12:29 by Jessica Smiley MD) Personal history of COVID-19 (10/21/23) Seasonal allergies Asthma PMB (postmenopausal bleeding) Uterine prolapse Hyperparathyroidism Productive cough URI (upper respiratory infection) Polyuria B12 deficiency Hypovitaminosis D Proteinuria Hypertriglyceridemia Impaired glucose tolerance Surgical History Hx of colonoscopy Hx of tubal ligation (1989) Family History Father Arthritis Mother No problems noted. Social History Household Members: Spouse Housing: House Are you a primary vehicle care specialist to a significant other at home: No Do you presently have visiting nurse or other home services: No Alcohol intake: never Comment: aware of trip hazard Patient Tobacco Use Status: Never used Tobacco e-Cigarette/Vaping Use: Never Used Second Hand Smoke Exposure: No service: No Current occupational status: unemployed Cognitive needs: No Hearing needs: No Vision needs: Yes Female Reproductive History Menstrual Age of Menarche: 12 Questionnaire Thrive Questionnaire Date Thrive assessed: 07/23/23 CLARY-7 AMB Questionnaire CLARY-7 Date CLARY - 7 assessed: 07/23/23 Source: Developed by Drs. Julio Álvarez, Fernanda Lugo, Patrick Fontana and colleagues, with an educational saul from [employer]. Review of Systems Const Details: - Respiratory: Reports chronic cough with mucous production, absence of fever. Physical exam (Primary Care) Vital Signs: Last Vital Signs BP 118/72 05/02/24 10:00 BMI result Body Mass Index 27.5 Tobacco/Smoking Status: Tobacco use Status Tobacco use date assessed 07/23/23 05/02/24 10:10 Patient Tobacco Use Status Never used Tobacco 05/02/24 10:10 Tobacco use type 02/16/24 14:41 e-Cigarette/Vaping Use Never Used 05/02/24 10:10 Thrive Assessment: Date of Thrive Assessment Date Thrive assessed 07/23/23 05/02/24 10:10 Const Other: General: No confusion Nose: nasal discharge present Mouth: Lip normal, dry mouth noted Respiratory: Normal respiratory effort, clear to auscultation bilaterally, dry cough present Cardiovascular: No jugular venous distension, regular rate, regular rhythm, S1 normal heart sound present and S2 normal heart sound present Neurology: Patient oriented x3, no focal motor deficits and No confusion Extremities: Full ROM Psychology: Grossly normal Coding Level of Care Code Est Pt Level 4 (65238) Complex EM visit Add On G2211 Diagnoses URI (upper respiratory infection) J06.9 Lumbosacral radiculopathy M54.17 Essential hypertension I10 Dyslipidemia E78.5 Impaired glucose tolerance R73.02 Time Spent (min) 22 Assessment & Plan Assessment & Plan (1) URI (upper respiratory infection): Code(s): J06.9 - Acute upper respiratory infection, unspecified Category: Medical (2) Lumbosacral radiculopathy: Code(s): M54.17 - Radiculopathy, lumbosacral region Category: Medical (3) Essential hypertension: Code(s): I10 - Essential (primary) hypertension Category: Medical (4) Dyslipidemia: Code(s): E78.5 - Hyperlipidemia, unspecified Category: Medical (5) Impaired glucose tolerance: Code(s): R73.02 - Impaired glucose tolerance (oral) Category: Medical Plan - Initiate antibiotic therapy to address cough symptoms. - Prescribe an antihistamine and a mucinex for symptomatic relief of the cough. - Continue observation for potential side effects of newly prescribed fibrate therapy for hyperlipidemia management. - Follow-up monitoring of prediabetes control and hypertension status. - Refer to ortho for lumbosacral radiculopathy. Patient was informed and verbally consented to the use of an ambient scribe for clinic note documentation during this visit. During our discussion, I explained the rationale for initiating antibiotic therapy despite the absence of fever, as this aligns with the need to manage chronic cough symptoms. We also talked about the introduction of an antihistamine and mucinex to address symptom relief for the cough. The patient was informed of possible side effects from fibrate therapy, as well as our plan for ongoing monitoring of her prediabetes and hypertension. The patient understood and agreed to proceed with the proposed management plan and therapy adjustments. Orders: Orders Lipid Panel 6 Months E78.5 - Hyperlipidemia, unspecified Comprehensive Gilman. Panel Fast 6 Months R73.02 - Impaired glucose tolerance (oral) Vitamin D 25-OH Total 6 Months E55.9 - Vitamin D deficiency, unspecified Vitamin B12 and Folate 6 Months E53.8 - Deficiency of other specified B group vitamins Thyroid Stimulating Hormone 6 Months R94.6 - Abnormal results of thyroid function studies Free T4 (Free Thyroxine) 6 Months R94.6 - Abnormal results of thyroid function studies Magnesium 6 Months E83.42 - Hypomagnesemia Referrals Orthopedics Referral M48.061 - Spinal stenosis, lumbar region without neurogenic claudication, M54.17 - Radiculopathy, lumbosacral region Medications: New amoxicillin 500 mg PO BID 10 caps 0RF 5 days fenofibrate 54 mg PO DAILY 90 tabs 1RF 90 days nabumetone 750 mg PO BID PRN 14 tabs 0RF pain 7 days Refilled cetirizine 10 mg PO DAILY PRN 30 tabs 1RF allergy symptoms 30 days Patient Instructions: - Begin antibiotic treatment as discussed. - Take antihistamine and myosininex for cough relief as prescribed. - Report any significant side effects, especially from the new fibrate medication. - Monitor blood pressure and blood sugar levels as advised. - Return for follow-up if symptoms do not improve or new symptoms develop.
== END 2024-05-02 10:46 | disposition home or self-care (01) ==
PROVIDERS: PCP Internal Medicine; Visit Provider Internal Medicine
DX: J06.9 Acute upper respiratory infection, unspecified (principal); M54.17 Radiculopathy, lumbosacral region; I10 Essential (primary) hypertension; E78.5 Hyperlipidemia, unspecified; R73.02 Impaired glucose tolerance (oral)

== ENCOUNTER → 2024-05-02 09:54 | Outpatient (BNVA) | payer MEDICARE, MEDICAID, SELFPAY | PROVIDERS: PCP Internal Medicine; Visit Provider Internal Medicine | DX: R05.3 Chronic cough (principal); J06.9 Acute upper respiratory infection, unspecified; M54.17 Radiculopathy, lumbosacral region; I10 Essential (primary) hypertension; E78.5 Hyperlipidemia, unspecified; R73.02 Impaired glucose tolerance (oral); E55.9 Vitamin D deficiency, unspecified; E53.8 Deficiency of other specified B group vitamins; R94.6 Abnormal results of thyroid function studies; E83.42 Hypomagnesemia | CPT/HCPCS: 99212 ==

== ENCOUNTER 2024-07-26 11:34 | Outpatient (REF) | payer MEDICARE, MEDICAID, SELFPAY ==
[2024-07-26 13:21] LABS: Alanine Aminotransferase 26 U/L (0-31); Albumin Level 4.1 g/dL (3.5-5.0); Alkaline Phosphatase 56 U/L (39-117); Anion Gap 12 (12-20); Aspartate Amino Transferase 21 U/L (5-31); Bilirubin Total 0.3 mg/dL (0.0-1.0); Blood Urea Nitrogen 19 mg/dL (9-16); Calcium 9.8 mg/dL (8.4-10.2); Carbon Dioxide 27 mmol/L (22-29); Chloride 109 mmol/L (96-108); Cholesterol 214 mg/dL (<200); Estimated Glomerular Filt Rate > 60; Free T4 (Free Thyroxine) 1.05 ng/dL (0.71-1.85); Glucose Fasting 117 mg/dL (60-99); HDL Cholesterol 42 mg/dL (>40); LDL Cholesterol Calculated 135 mg/dL (<100); Potassium 4.3 mmol/L (3.3-5.1); Sodium 144 mmol/L (135-145); Total Protein 7.5 g/dL (6.5-8.0); Triglycerides 185 mg/dL (<150); Vitamin D 25-OH Total 29.5 ng/mL (>30)
[2024-07-26 13:34] LABS: Folate 16.5 ng/mL (> or = 4.0); Vitamin B12 874 pg/mL (200-900)
--- OUTSIDE RECORDS SUMMARY | 2024-07-26 14:20 | XMS_ITS | Encounter Summary ---
Author Organization [facility] Address [address] [address] Phone Care Team Providers Care Finisher Operator Name Role Phone Jessica Stanton MD Primary Care Provider [phone] Reason for Visit * Reason Onset Date Comments Med Refill 06/24/2024 Encounter Details Date Type Department Care Team (Late Contact Info) Description 06/24/2024 Refill [facility] [address] [address] Windy Suarez [address] [address] Social History Tobacco Use Types Packs/Day Years Used Date Smoking Tobacco: Never Smokeless Tobacco: Never Alcohol Use Standard Drinks/Week Comments Yes 0 (1 standard drink = 0.6 oz pure alcohol) Alcoholic Drinks/day: Occasional social drink Comments Unknown Sex and Gender Information Value Date Recorded Sex Assigned at Not on file Legal Sex Female 5:03 PM EST Gender Identity Not on file Sexual Orientation Not on file documented as of this encounter Plan of Treatment Upcoming Encounters Date Type Department Care Team (Late st Contact Info) Description 03/08/2025 11:30 AM EDT Office Visit [facility] [address] [address] Morena Pimentel ARNP [address] [address] documented as of this encounter Visit Diagnoses Not on filedocumented in this encounter Care Teams Finisher Operator Relationship Specialty Start Date End Date Jessica Stanton MD [address] [facility] [place] PCP - General Internal Medicine 07/24/20 documented as of this encounter
--- OUTSIDE RECORDS SUMMARY | 2024-07-26 14:20 | XMS_ITS | Encounter Summary ---
Author Organization [facility] Address [address] [address] Phone Care Team Providers Care Ferry Engineer Name Role Phone Jessica Stanton MD Primary Care Provider [phone] Encounter Details Date Type Department Care Team (Late st Contact Info) Description 03/13/2024 Office Communication [facility] [address] [place] [address] Morena Pimentel ARNP [address] [address] Social History Tobacco Use Types [...] EDT Office Visit [facility] [address] [address] Morena Pimentel ARNP [address] [address] documented as of this encounter Visit Diagnoses Not on filedocumented in this encounter Care Teams Ferry Engineer Relationship Specialty Start Date End Date Jessica Stanton MD [address] [place] [address] PCP - General Internal Medicine 07/24/20 documented as of this encounter
--- OUTSIDE RECORDS SUMMARY | 2024-07-26 14:20 | XMS_ITS | Patient Health Record ---
Author Organization [facility] Address [address] [place] [address] Care Team Providers Care Cash Applications Manager Name Role Phone Geetha Acosta Unavailable [phone] Reason For Referral No Information Problems Problem Type SNOMED Code ICD Code Onset Dates Problem Status W/U Status Risk Notes Problem Asthma (disorder) (532127435) Asthma, unspecified, unspecified status (493.90) Active confirmed Major Problem Female genital organ symptoms (770024273) Other specified symptom associated with female genital organs (625.8) Active confirmed Major Problem Osteoarthritis (130369655) Osteoarthrosis, unspecified whether generalized or localized, unspecified site (715.90) Active confirmed Major Plan Of Treatment No Information Insurance Providers Payer Name Payer Address Payer Phone Subscriber Number Group Number Insured Name Patient Relationship to Insured Coverage Start Date Coverage End Date [employer] [address] [address] [place] [address] [id number] ALEJANDRA ISSULEIMAN Self - patient is the insured
--- OUTSIDE RECORDS SUMMARY | 2024-07-26 14:20 | XMS_ITS | Clinical Summary ---
Author Organization [facility] Address [address] [place] [address] Phone Care Team Providers Care Squad Sergeant Name Role Phone Jessica Stanton MD Primary Care Provider [phone] Allergies Active Allergy Reactions Criticality Noted Date Comments Ezetimibe Other (see comments) 07/22/2021 Rosuvastatin Other (see comments) 07/22/2021 Simvastatin Other (see comments) 07/22/2021 Terbinafine Rash Low 07/22/2021 Medications Cyanocobalamin (VITAMIN B-12 PO) Take by mouth Active albuterol HFA (PROVENTIL HFA;VENTOLIN HFA) 108 (90 Base) MCG/ACT inhaler 1 PUFF INHALED 4 TIMES A DAY NEEDED FOR SHORTNESS OF BREATH OR WHEEZING FOR 30 DAYS 2 Active Cholecalciferol (Vitamin D3) 50 MCG (2000 UT) tabletIndicatio ns:Vitamin D deficiency, not otherwise specified Take 2,000 Units by mouth 1 (one) time each day 30 tablet 11 4 03/13/20 25 Active lisinopril 10 MG tabletIndicatio ns:Hypertension Take 1 tablet (10 mg total) by mouth 1 (one) time each day 90 tablet 3 5 Active Active Problems Problem Noted Date Diagnosed Date Chronic kidney disease, stage 2 (mild) 4 Incomplete uterine prolapse 07/22/2021 Asthma 07/22/2021 Cobalamin deficiency 07/22/2021 Disorder of rectum 07/22/2021 Hypertriglyceridemia 07/22/2021 Impaired glucose tolerance 07/22/2021 Language spoken - finding 07/22/2021 Midline cystocele 07/22/2021 Mixed urinary incontinence 07/22/2021 Osteoporosis 07/22/2021 Postmenopausal bleeding 07/22/2021 Vitamin D deficiency 07/22/2021 Hypertension 07/24/2020 Blood in urine 07/24/2020 Proteinuria 07/24/2020 Encounters Date Type Department Care Team Description 06/24/2024 Refill [facility] [address] [address] Erica Suarezn 06/22/2024 Refill [facility] [address] [address] Kristal Crawford [place] from Last 3 Months Family History Medical History Relation Comments Cancer Father Prostate Heart disease Mother Heart Problems-O ld Age Relation Status Comments Father Mother Social History Tobacco Use Types Packs/Day Years Used Date Smoking Tobacco: Never Smokeless Tobacco: Never Tobacco Cessation:Counseling Given: Not Answered Alcohol Use Standard Drinks/Week Comments Yes 0 (1 standard drink = 0.6 oz pure alcohol) Alcoholic Drinks/day: Occasional social drink Comments Unknown Sex and Gender Information Value Date Recorded Sex Assigned at Not on file Legal Sex Female 5:03 PM EST Gender Identity Not on file Sexual Orientation Not on file Last Filed Vital Signs Vital Sign Reading Time Taken Comments Blood Pressure 115/58 03/08/2024 11:57 AM EDT Pulse 73 03/08/2024 11:57 AM EDT Temperature - - Respiratory Rate - - Oxygen Saturation 98% 07/22/2021 1:49 PM EST Inhaled Oxygen Concentration - - Weight 73 kg (161 lb) 03/08/2024 11:57 AM EDT Height 167.6 cm (5' 6 ) 07/24/2020 3:06 PM EST Body Mass Index 25.99 07/24/2020 3:06 PM EST Plan of Treatment Upcoming Encounters Date Type Department Care Team (Late st Contact Info) Description 03/08/2025 11:30 AM EDT Office Visit [facility] [address] [address] Morena Pimentel ARNP [address] [address] Health Maintenance Due Date Last Done Comments Breast Cancer Screening 1955 Pneumococcal Vaccine: 65+ Ye ars (1 of 2 - PCV) 1960 Colorectal Cancer Screening: Annual FOBT 2003 Colorectal Cancer Screening: Colonoscopy 2003 Colorectal Cancer Screening: Sigmoidoscopy 2003 Influenza Vaccine (#1) 2024 Hepatitis B Vaccine Aged Out No longe r eligible based on patient's age to complete this topic Insurance [facility] [id number] MEDICAID [place] Care Teams Squad Sergeant Relationship Specialty Start Date End Date Jessica Stanton MD [address] [place] [address] PCP - General Internal Medicine 07/24/20
--- OUTSIDE RECORDS SUMMARY | 2024-07-26 14:20 | XMS_ITS | Clinical Summary ---
Author Organization [address] Address [address] [place] [address] Phone Care Team Providers Care Ruby Rails Developer Name Role Phone Unavailable Primary Care Provider Unavailabl e Social History Tobacco Use Types Packs/Day Years Used Date Smoking Tobacco: Never Assessed Comments Unknown Sex and Gender Information Value Date Recorded Sex Assigned at Not on file Legal Sex Female 12:31 AM EST Gender Identity Not on file Sexual Orientation Not on file Plan of Treatment Health Maintenance Due Date Last Done Comments Breast Cancer Screening 1955 DTaP,Tdap,and Td Vaccines (1 - Tdap) 1973 Pneumococcal Vaccine: 50+ Ye ars (1 of 1 - PCV) 2004 Zoster Vaccines (1 of 2) 2004 Colorectal Cancer Screening: Colonoscopy 06/16/2023 Depression Screening 06/16/2023 Falls Risk Assessment 06/16/2023 Hepatitis C Screening 06/16/2023 Medicare Annual Wellness Visit 06/16/2023 Osteoporosis Screening (Bone Density Screening) 06/16/2023 Social Influencers of Health Screening 06/16/2023 COVID-19 Vaccine ( - 2023-2 5 season) 2024 Influenza Vaccine (#1) 2024 RSV Immunization Patients 60 + Years Old (1 - 1-dose 75+ series) 2029 HIB Vaccines Aged Out No longer eligi ble based on patient's age to complete this topic HPV Vaccines Aged Out No longer eligi ble based on patient's age to complete this topic Hepatitis A Vaccines Aged Out No long er eligible based on patient's age to complete this topic Hepatitis B Vaccines Aged Out No long er eligible based on patient's age to complete this topic IPV Vaccines Aged Out No longer eligi ble based on patient's age to complete this topic MMR Vaccines Aged Out No longer eligi ble based on patient's age to complete this topic Meningococcal ACWY Vaccine Aged Out N o longer eligible based on patient's age to complete this topic Meningococcal B Vacine Aged Out No lo nger eligible based on patient's age to complete this topic RSV Immunization Patients Un chan 20 months Aged Out No longer eligible b ased on patient's age to complete this topic Varicella Vaccines Aged Out No longer eligible based on patient's age to complete this topic Insurance [employer] [place] [employer] - [place]
--- OUTSIDE RECORDS SUMMARY | 2024-07-26 14:20 | XMS_ITS | Encounter Summary ---
Author Organization [facility] Address [address] [place] [address] Care Team Providers Care Heavy Equipment Service Technician Name Role Phone Unavailable Primary Care Provider Unavailabl e Encounter Details Date Type Department Care Team (Late st Contact Info) Description 03/25/2024 Lab Requisition [facility] - Main Lab [address] [place] [address] Maddie Campbell MD [address] [id number] Other abnormal findings in urine Social History Tobacco Use Types Packs/Day Years Used Date Smoking Tobacco: Never Assessed Comments Unknown Sex and Gender Information Value Date Recorded Sex Assigned at Not on file Legal Sex Female 12:31 AM EST Gender Identity Not on file Sexual Orientation Not on file documented as of this encounter Plan of Treatment Not on file documented as of this encounter Procedures Procedure Name Priority Date/Time Associated Diagnosis Comments CULTURE URINE Routine 03/25/2024 12:00 AM EST Other abnormal findings in urine documented in this encounter Results * (ABNORMAL) Culture urine (03/25/2024 12:00 AM EST) Culture, Urine 10,000-49,000 CFU/mL Streptococcus beta-hemolytic Group B(A) 03/27/2024 1:13 PM EST [facility] Comment: Susceptibility testing is not routinely performed for Beta Streptococcus isolates since these organisms are predictably sensitive to Penicillin. If the Patient is not responding, is allergic to Penicillin, or further therapeutic information is requir ed, please consult an Infectious Disease Specialist. The organism value for this result has been updated. These results have been appended to the previously preliminary verified report. Urine Urine specimen obtained by clean catch procedure / Unknown 03/25/2024 03/25/2024 5:22 PM EST us Maddie Campbell MD LAB MICROBIOLOGY - G ENERAL ORDERABLES Final Result [facility] [address] [place] [address], [place] [phone] documented in this encounter Visit Diagnoses Diagnosis Other abnormal findings in urine documented in this encounter
== END 2024-07-26 11:35 | disposition home or self-care (01) ==
LOC: HO.LAB 11:34
PROVIDERS: PCP Internal Medicine; Visit Provider Internal Medicine
DX: R73.02 Impaired glucose tolerance (oral) (principal); R94.6 Abnormal results of thyroid function studies; E78.5 Hyperlipidemia, unspecified; E53.8 Deficiency of other specified B group vitamins; E83.42 Hypomagnesemia
CPT/HCPCS: 36415; 80053; 80061; 82306; 82607; 82746; 83735; 84439; 84443

== ENCOUNTER 2024-08-01 10:02 | Outpatient (AMB) | payer MEDICARE, MEDICAID, SELFPAY ==
--- NOTE | 2024-08-01 10:14 | A.OFFVIS_ITS ---
Intake Vital Signs 08/01/24 10:21 Height 5 ft 4 in Weight 156 lb 11.725 oz BMI 26.9 BP 130/70 Blood Pressure Location Lt brachial Position Sitting Intake Visit Reasons: Annual Exam Intake Note: Patient here for an annual wellness visit Superintendent Nonselling Required: No Accompanied by: Self / Same As Patient Allergies Iodinated Contrast Media Allergy (Intermediate, Verified 08/01/24 10:35) Hives ezetimibe [Zetia] Adverse Reaction (Intermediate, Verified 08/01/24 10:35) ? memory loss ? rosuvastatin [From Crestor] Adverse Reaction (Intermediate, Verified 08/01/24 10:35) Muscle cramps Lamisil Allergy (Mild, Uncoded 08/01/24 10:35) Rash Simvastatin Adverse Reaction (Intermediate, Uncoded 08/01/24 10:35) myalgias Medication List - Last Reconciled 08/01/24 by Jessica Smiley MD acetaminophen (Acetaminophen Extra Strength) 1,000 mg PO Q6H PRN albuterol sulfate 90 mcg/actuation 1 inh inhalation QID PRN calcium carbonate 600 mg PO BID 90 days cetirizine 10 mg PO DAILY PRN 30 days cholecalciferol (vitamin D3) 50 mcg PO DAILY 90 days cyanocobalamin (vitamin B-12) ER 1,000 mcg PO .three times a week fenofibrate 54 mg PO DAILY 90 days lisinopril 10 mg PO DAILY 90 days magnesium 250 mg PO DAILY nabumetone 750 mg PO BID PRN 7 days Ventolin HFA 90 mcg/actuation (albuterol sulfate) 2 puffs inhalation Q6H PRN 30 days NS vitamin E (dl, acetate) 45 mg PO DAILY HPI HPI Comments History of Present Illness Details The patient is a 69-year-old female presenting with concerns primarily identified in the context of a Medicare annual wellness examination. She has a history of osteopenia diagnosed via DEXA scan the previous year and dyslipidemia which she manages with modified fenofibrate dosing due to its side effects. Pre- diabetes is present, noted through glucose levels. Hypertension is controlled with lisinopril. A colonoscopy from 2018 indicates diverticulosis and internal hemorrhoids, with sessile serrated polyp removed and biopsied benignly. The patient is experiencing urinary incontinence treated with urological interventions but is concerned due to frequent accidents. Arthritis severely affects her quality of life, causing significant joint pain. No recent mammogram was recorded for 2023 after the one done in April 2023. - Pneumonia vaccine received - Bone density test done last year showi ng osteopenia - Pap smear completed in 2022 - Mammogram completed in April 2023, pending follow-up for 2023 - Colonoscopy in 2018, showing diverticu losis and internal hemorrhoids; next one scheduled for 2027 [facility] Medical History Personal history of COVID-19 (10/21/23) Seasonal allergies Asthma PMB (postmenopausal bleeding) Uterine prolapse Hyperparathyroidism Productive cough URI (upper respiratory infection) Polyuria B12 deficiency Hypovitaminosis D Proteinuria Hypertriglyceridemia Impaired glucose tolerance Surgical History Hx of colonoscopy Hx of tubal ligation (1989) Family History Father Arthritis Mother No problems noted. Social History Household Members: Spouse Housing: House Are you a primary day care center director to a significant other at home: No Do you presently have visiting nurse or other home services: No Alcohol intake: never Comment: aware of trip hazard Patient Tobacco Use Status: Never used Tobacco e-Cigarette/Vaping Use: Never Used Second Hand Smoke Exposure: No service: No Current occupational status: unemployed Cognitive needs: No Hearing needs: No Vision needs: Yes Female Reproductive History Menstrual Age of Menarche: 12 Questionnaire Medicare Wellness Checkup [age] What gender do you identify with?: female During the past 4 weeks, how much have you been bothered by emotional problems such as feeling anxious, depressed, irritable, sad or downhearted, and blue?: not at all During the past 4 weeks, has your physical & emotional health limited your social activities with family, friends, neighbors, or groups?: not at all During the past 4 weeks, how much bodily pain have you generally had?: moderate pain During the past 4 weeks, was someone available to help you if you needed & wanted help?: yes, as much as I wanted During the past 4 weeks, what was the hardest physical activity you could do for at least 2 minutes?: moderate Can you get to places out of walking distance without help? (For eg., can you travel alone on buses, taxis or drive your car?): Yes Can you go shopping for groceries or clothes without someone's help?: Yes Can you prepare your own meals?: Yes Can you do your housework without help?: Yes Because of any health problems, do you need the help of another person with your personal care needs such as eating, bathing, dressing or getting around the house?: Yes Can you handle your own money without help?: Yes During the past 4 weeks, how would you rate your health in general?: good During the past 4 weeks how have things been going for you?: good & bad parts about equal Are you having difficulties driving your car?: no Do you always fasten your seat belt when you are in a car?: yes, usually During past 4 weeks, have you been bothered by the following: never: Falling or dizzy when standing up and Sexual problems?, seldom: Trouble eating well?, Teeth or denture problems? and Problems using the telephone? and sometimes: Tiredness or fatigue? Have you fallen 2 or more times in the past year?: No Are you afraid of falling?: No Are you a smoker?: no During the past 4 weeks, how many drinks of wine, beer, or other alcoholic beverages did you have?: no alcohol at all Do you exercise for about 20 minutes 3 or more times a week?: yes, some of the time Have you been given information to help with the following?: no: Hazards in your house that might hurt you? and no: Keeping track of your medications? How often do you have trouble taking medicines the way you have been told to take them?: I always take medicine as prescribed How confident are you that you can control & manage most of your health problems?: very confident What is your race?: White Mini Mental State Exam (MMSE) Orientation What is the (year) (season) (date) (day) (month)?: year, season, date, day and month Where are we (state) (county) (town or city) (hospital) (floor)?: state, county, town or city, hospital/clinic and floor Registration Name of 3 unrelated objects clearly and slowly, then ask patient to repeat all 3 of them. (1st repeat determines score. Make sure they can repeat all three): object 1, object 2 and object 3 Attention & Calculation (CHOOSE ONE) Spell WORLD backwards (DLROW): 5 letters Recall Ask patient to repeat the 3 items from question #3.: object 1, object 2 and object 3 Language Show patient a wristwatch & ask what it is. Repeat for pencil.: watch and pencil Ask the patient to repeat the phrase 'No ifs, ands, or buts' after you.: correct Ask the patient to 'take a piece of paper with their right hand' 'fold paper in half' 'place paper on floor': take paper in right hand, fold paper in half and place paper on floor Print the sentence 'CLOSE YOUR EYES' on a piece. If patient actually closes eyes then score.: followed written direction Give patient a blank piece of paper & ask to write a sentence. Score if it contains a noun & verb.: sentence contains subject and verb Ask patient to copy figure of intersecting pentagons exactly. Score if all 10 angles & 2 intersects are included.: all 10 angles present & 2 are intersected Score Score: 30 Activity of Daily Living Bathing - sponge bath, tub bath or shower: receives no assistance (gets in/out by self, if usual bathing means Dressing - getting clothes from closets & drawers, including inner/outer garments & fasteners.: gets clothes & gets completely dressed without help Toileting - going to the 'toilet room' for urine/bowel elimination & cleaning self/arranging clothes: goes to toilet room, cleans self, arranges clothes without help Transfer: moves in & out of bed and chair without help (may use support object) Continence: has occasional 'accidents' Feeding: feeds self without help Total Score: 0 Information obtained from: patient Using telephone: independent Traveling: independent Shopping: independent Preparing meals: independent Housework: independent Taking medicine: independent Managing money: independent PHQ-9 Over the last 2 weeks, how often have you been bothered by any of the following problems? 1. Little interest or pleasure in doing things: not at all 2. Feeling down, depressed, or hopeless: not at all 3. Trouble falling or staying asleep, or sleeping too much: several days 4. Feeling tired or having little energy: not at all 5. Poor appetite or overeating: several days 6. Feeling bad about yourself - or that you are a failure or have let yourself o r your family down: several days 7. Trouble concentrating on things, such as reading the newspaper or watching television: not at all 8. Moving or speaking so slowly that other people could have noticed. Or the opposite - being so fidgety or restless that you have been moving around a lot more than usual: several days 9. Thoughts that you would be better off or of hurting yourself in some way: not at all Total score: 4 Depression Screening Interpretation: Positive Depression Screening Follow-up: Existing condition and Follow-up Visit Requested Depression Screening Done: Yes 93797 - PHQ-9 Billing: Yes Source: Developed by Drs. Julio Álvarez, Fernanda Lugo, Patrick Fontana and colleagues, with an educational saul from [employer]. AUDIT C Alcohol Use Questionnaire (AUDIT-C) 1. How often do you have a drink containing alcohol?: Never Total Score: 0 Score Reviewed/Action Taken: No CLARY-7 AMB Questionnaire CLARY-7 Date CLARY - 7 assessed: 08/01/24 Feeling nervous, anxious, or on edge: 1 = Several days Not being able to stop or control worryin = Not at all Worrying too much about different things: 1 = Several days Trouble relaxin = Not at all Being so restless that it is hard to sit still: 0 = Not at all Becoming easily annoyed or irritable: 0 = Not at all Feeling afraid as if something awful might happen: 0 = Not at all Total CLARY-7 score (0-4 normal; 5-9 mild; 10-14 moderate; 15-21 severe): 2 Source: Developed by Drs. Julio Álvarez, Fernanda Lugo, Patrick Fontana and colleagues, with an educational saul from [employer]. CLARY-7 Assessment Billing CLARY-7 Assessment Tool: CLARY-7 Assessment 12017 Thrive Questionnaire Date Thrive assessed: 08/01/24 I am a: Patient What is your living situation today?: I have a steady place to live Within the past 12 months, did the food you bought not last and you didn't have the money to get more?: Never true Within the past 12 months, did you worry whether your food would run out before you got money to buy more?: Never true Do you have trouble paying for medicines?: No Do you have trouble getting transportation to medical appointments?: No Do you have trouble paying your heating and electricity bill?: No Do you have trouble taking care of your child, family member or friend?: No Do you have trouble with day-to-day activities such as bathing, preparing meals, shopping, managing finances, etc.?: No Are you currently unemployed and looking for a job?: No Are you interested in more education?: No Please select the resources that you would like help with: None Currently or been in a relationship where the following occur: No concerns reported THRIVE Score: 0 Fall Risk Assessment Fall Risk Assessment Fall risk assessment: No Falls in past year Review of Systems Const All systems reviewed & are unremarkable except as noted in HPI and below Card Denies chest pain at rest, Denies chest pain with activity, Denies edema, Denies irregular heart rhythm, Denies claudication, Denies dyspnea, Denies dyspnea on exertion, Denies orthopnea, Denies paroxysmal nocturnal dyspnea and Denies slow heart rate Resp Denies cough, Denies dyspnea and Denies dyspnea on exertion Reports urinary incontinence Musc Denies abnormal gait, Denies atrophy, Denies deformity, Reports arthralgias and Denies limited range of motion Neuro Denies abnormal gait and Denies lack of coordination Physical Exam Vital Signs: Last Vital Signs BP 130/70 08/01/24 10:21 BMI result Body Mass Index 26.9 Resp Effort & Inspection: normal respiratory effort Auscultation: clear to auscultation bilaterally Cardio Jugular venous distension: no JVD Rate: regular rate Rhythm: regular rhythm Heart sounds: S1 normal heart sound present and S2 normal heart sound present Neuro Romberg Test: Negative Extrem General: Yes full ROM Right lower extremity: knee Details: tenderness Assessment & Plan Assessment & Plan (1) Encounter for Medicare annual wellness exam: Code(s): Z00.00 - Encounter for general adult medical examination without abnormal findings (2) Right knee pain: Code(s): M25.561 - Pain in right knee (3) Right foot pain: Code(s): M79.671 - Pain in right foot (4) Polyarthralgia: Code(s): M25.50 - Pain in unspecified joint Plan The patient?s osteopenia will be addressed with dietary supplements and adjustments. Dyslipidemia will continue to be managed pharmaceutically with fenofibrate more consistently despite discomfort, and monitoring is required for pre-diabetes. Hypertension treatment will proceed with lisinopril. Rheumatology will be engaged for arthritis management following upcoming imaging. Continual pharmacological intervention will be used for urinary incontinence. Patient was informed and verbally consented to the use of an ambient scribe for clinic note documentation during this visit. I discussed with the patient the management plan which includes adjustments in her current medications to better manage dyslipidemia and address her concerns regarding osteopenia. I emphasized the need for consistent dosing of fenofibrate and addressed her worries about pain by discussing the role of rheumatology. We also reviewed the importance of maintaining routine screenings, such as mammograms and colonoscopies according to schedule. The potential benefits and necessity of further diagnostics such as x-rays and specialist consults were outlined to help mitigate her pain symptoms. I stressed the importance of maintaining a healthy diet and regular follow-ups, especially given her pre- diabetic status, and offered assurances regarding the normalcy of some aging- related incontinence concerns. Orders: Orders XR foot RT 2V Today M79.671 - Pain in right foot XR knee RT 2V Today M25.561 - Pain in right knee Referrals Rheumatology Referral M25.50 - Pain in unspecified joint Patient Instructions: - Continue taking calcium and vitamin D supplements. - Maintain current hypertension and pre-diabetes management as prescribed. - Resume taking fenofibrate daily or at least every other day. - Schedule follow-up rheumatology appointment for arthritis. - Proceed with right heel and knee x-rays, when convenient. - Remember to schedule a mammogram. - Continue utilizing urology-prescribed medications for incontinence. - Follow dietary guidelines to help manage dyslipidemia and pre-diabetes. Quality Reporting (2020) Fall Risk Screening ([facility] 139) Fall risk assessment: No Falls in past year Depression/Bipolar (159/160/161/177) PHQ-9: Total score: 4 Coding Level of Care Code Medicare First (G0438) Est Pt Level 3 (71264) Diagnoses Encounter for Medicare annual wellness exam Z00.00 Right knee pain M25.561 Right foot pain M79.671 Polyarthralgia M25.50 Additional Codes CLARY-7 Assessment Billing - CLARY-7 Assessment Tool: CLARY-7 Assessment 06115 ([id number]) PHQ-9 - 31460 - PHQ-9 Billing: Yes ([id number]) Time Spent (min) 35 Advance Care Planning Advance Care Planning discussion: Exists, not on file
[2024-08-01 10:21] VITALS: BP 130/70; BMI 26.9
== END 2024-08-01 10:59 | disposition home or self-care (01) ==
LOC: HO.HMCH 10:02
PROVIDERS: PCP Internal Medicine; Visit Provider Internal Medicine
DX: Z00.00 Encounter for general adult medical examination without abnormal findings (principal); M25.561 Pain in right knee; M79.671 Pain in right foot; M25.50 Pain in unspecified joint

== ENCOUNTER → 2024-08-01 10:02 | Outpatient (BNVA) | payer MEDICARE, MEDICAID, SELFPAY | PROVIDERS: PCP Internal Medicine; Visit Provider Internal Medicine | DX: Z00.00 Encounter for general adult medical examination without abnormal findings (principal); M25.561 Pain in right knee; M79.671 Pain in right foot; M25.50 Pain in unspecified joint | CPT/HCPCS: 96127; 99212 ==

== ENCOUNTER 2024-08-02 15:49 | Outpatient (REF) | payer MEDICARE, MEDICAID, SELFPAY ==
--- NOTE | ~2024-08-02 | XR_ITS ---
CLINICAL HISTORY: M25.561 - Pain in right knee 2 view right knee Comparison: None Findings: Bones intact. No dislocations. Very mild medial compartment joint space narrowing. Superior and inferior patellar osteophytes. Trace suprapatellar joint effusion. No radiopaque foreign body. IMPRESSION: 1. No acute findings. Trace suprapatellar joint effusion and mild degenerative changes as described. This document has been electronically signed by: Morena Gray MD on 08/04/2024 12:48:13
--- NOTE | ~2024-08-02 | XR_ITS ---
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 Scattered mild multi joint degenerative changes including at the hindfoot, midfoot, 1st MTP joint, and scattered throughout the interphalangeal joints. Trace ankle joint effusion. No radiopaque foreign body. Moderate size Achilles enthesophyte. IMPRESSION: 1. No acute findings. 2. Trace ankle joint effusion and scattered mild multi joint degenerative changes as described. This document has been electronically signed by: Morena Gray MD on 08/04/2024 12:04:07
--- OUTSIDE RECORDS SUMMARY | 2024-08-02 18:35 | XMS_ITS | Encounter Summary ---
Author Organization [facility] Address [address] [address] Phone Care Team Providers Care Facsimile Machine Operator Name Role Phone Jessica Stanton MD Primary Care Provider [phone] Encounter Details Date Type Department Care Team (Late st Contact Info) Description 03/13/2024 Office Communication [facility] [address] [place] [id number] Morena Pimentel ARNP [address] [address] Social History Tobacco Use [...] Office Visit [facility] [address] [address] Morena Pimentel ARNP [address] [address] documented as of this encounter Visit Diagnoses Not on filedocumented in this encounter Care Teams Facsimile Machine Operator Relationship Specialty Start Date End Date Jessica Stanton MD [address] [place] [address] PCP - General Internal Medicine 07/24/20 documented as of this encounter
--- OUTSIDE RECORDS SUMMARY | 2024-08-02 18:35 | XMS_ITS | Clinical Summary ---
Author Organization [facility] Address [address] [place] [address] Phone Care Team Providers Care Court Commissioner Name Role Phone Jessica Stanton MD Primary Care Provider [phone] Allergies Active Allergy Reactions Criticality Noted Date [...] 06/24/2024 Refill [facility] [address] [phone] Erica Suarezn 06/22/2024 Refill [facility] [address] [address] Kristal Crawford MA from Last [...] Office Visit [facility] [address] [phone] Morena Pimentel ARNP [address] [address] Health Maintenance Due Date Last Done Comments Breast Cancer Screening 1955 Pneumococcal Vaccine: 65+ Ye ars (1 of 2 - PCV) 1960 Colorectal Cancer Screening: Annual FOBT 2003 Colorectal Cancer Screening: Colonoscopy 2003 Colorectal Cancer Screening: Sigmoidoscopy 2003 Influenza Vaccine (#1) 2024 Hepatitis B Vaccine Aged Out No longe r eligible based on patient's age to complete this topic Insurance [facility] [id number] MEDICAID [place] Care Teams Court Commissioner Relationship Specialty Start Date End Date Jessica Stanton MD [address] [place] [address] PCP - General Internal Medicine 07/24/20
--- OUTSIDE RECORDS SUMMARY | 2024-08-02 18:35 | XMS_ITS | Patient Health Record ---
Author Organization [facility] Address [address] [place] [address] Care Team Providers Care Dethistler Operator Name Role Phone Geetha Acosta Unavailable [phone] Reason For Referral No Information Problems Problem Type SNOMED Code ICD Code Onset Dates Problem Status W/U Status Risk Notes Problem Asthma (disorder) (775504494) Asthma, unspecified, unspecified status (493.90) Active confirmed Major Problem Female genital organ symptoms (621887497) Other specified symptom associated with female genital organs (625.8) Active confirmed Major Problem Osteoarthritis (723647936) Osteoarthrosis, unspecified whether generalized or localized, unspecified site (715.90) Active confirmed Major Plan Of Treatment No Information Insurance Providers Payer Name Payer Address Payer Phone Subscriber Number Group Number Insured Name Patient Relationship to Insured Coverage Start Date Coverage End Date [facility] [address] [address] [place] [address] [id number] ALEJANDRA ISSULEIMAN Self - patient is the insured
--- OUTSIDE RECORDS SUMMARY | 2024-08-02 18:36 | XMS_ITS | Clinical Summary ---
Author Organization [address] Address [address] [place] [address] Phone Care Team Providers Care Hotel Night Auditor Name Role Phone Unavailable Primary Care Provider [...]
--- OUTSIDE RECORDS SUMMARY | 2024-08-02 18:36 | XMS_ITS | Encounter Summary ---
Author Organization [facility] Address [address] [place] [address] Care Team Providers Care Physics Faculty Member Name Role Phone Unavailable Primary Care Provider Unavailabl e Encounter Details Date Type Department Care Team (Late st Contact Info) Description 03/25/2024 Lab Requisition [facility] - Main Lab [address] [place] [address] Maddie Campbell MD [address] [id number] Other abnormal findings in urine Social History [...] beta-hemolytic Group B(A) 03/27/2024 1:13 PM EST [facility] ([facility] Comment: Susceptibility testing is not routinely [...] MICROBIOLOGY - G ENERAL ORDERABLES Final Result [facility] ([facility] [address] [place] [address], [place] [phone] documented in this encounter Visit Diagnoses Diagnosis Other abnormal findings in urine documented in this encounter
== END 2024-08-02 15:50 | disposition home or self-care (01) ==
LOC: HO.XRAY 15:49
PROVIDERS: PCP Internal Medicine; Visit Provider Internal Medicine
DX: M25.561 Pain in right knee (principal); M79.671 Pain in right foot
CPT/HCPCS: 73560; 73620

== ENCOUNTER → 2024-08-02 15:54 | Outpatient (BNV) | payer MEDICARE, MEDICAID, SELFPAY | PROVIDERS: PCP Internal Medicine; Visit Provider Radiology Diagnostic Radiology | DX: M25.461 Effusion, right knee (principal); M25.471 Effusion, right ankle | CPT/HCPCS: 73560; 73620 ==

== ENCOUNTER 2024-11-28 10:25 | Outpatient (REF) | payer MEDICARE, OTHER, SELFPAY ==
--- OUTSIDE RECORDS SUMMARY | 2024-11-28 11:06 | XMS_ITS | Encounter Summary ---
Author Organization [facility] Address [address] [address] Phone Care Team Providers Care Chain Sales Representative Name Role Phone Jessica Stanton MD Primary Care Provider [phone] Encounter Details Date Type Department Care Team (Late st Contact Info) Description 03/13/2024 Office Communication [facility] [address] [place] [address] Morena Pimentel ARNP [address] [address] Social History Tobacco Use Types [...] Care Team (Late st Contact Info) Description 03/27/2025 1:30 PM EST Office Visit [facility] [address] [address] Morena Pimentel ARNP [address] [address] documented as of this encounter Visit Diagnoses Not on filedocumented in this encounter Care Teams Chain Sales Representative Relationship Specialty Start Date End Date Jessica Stanton MD [address] [place] [address] PCP - General Internal Medicine 07/24/20 documented as of this encounter
--- OUTSIDE RECORDS SUMMARY | 2024-11-28 11:06 | XMS_ITS | Encounter Summary ---
Author Organization [facility] Address [address] [place] [address] Care Team Providers Care Hospice Manager Name Role Phone Unavailable Primary Care Provider Unavailabl e Encounter Details Date Type Department Care Team (Late st Contact Info) Description 03/25/2024 Lab Requisition [facility] - Main Lab [address] [place] [address] Maddie Campbell MD [address] [id number] Other abnormal findings in urine Social History [...] Group B(A) 03/27/2024 1:13 PM EST [facility] ([email or web address] Comment: Susceptibility testing is not [...] - G ENERAL ORDERABLES Final Result [facility] ([facility] [address] [place] [address], [place] [phone] documented in this encounter Visit Diagnoses Diagnosis Other abnormal findings in urine documented in this encounter
== END 2024-11-28 10:26 | disposition home or self-care (01) ==
LOC: HO.LAB 10:25
PROVIDERS: PCP Internal Medicine; Visit Provider Internal Medicine
DX: Z13.89 Encounter for screening for other disorder (principal)

== ENCOUNTER 2024-12-02 09:21 | Outpatient (REF) | payer MEDICARE, MEDICAID, SELFPAY ==
--- OUTSIDE RECORDS SUMMARY | 2024-12-02 09:27 | XMS_ITS | Encounter Summary ---
Author Organization [facility] Address [address] [address] Phone Care Team Providers Care Tax Services Professional Name Role Phone Jessica Stanton MD Primary Care Provider [phone] Encounter Details Date Type Department Care Team (Late st Contact Info) Description 03/13/2024 Office Communication [facility] [address] [place] [address] Morena Pimentel ARNP [address] [address] Social History Tobacco Use Types [...] Office Visit [facility] [address] [address] Morena Pimentel ARNP [address] [address] documented as of this encounter Visit Diagnoses Not on filedocumented in this encounter Care Teams Tax Services Professional Relationship Specialty Start Date End Date Jessica Stanton MD [address] [place] [address] PCP - General Internal Medicine 07/24/20 documented as of this encounter
--- OUTSIDE RECORDS SUMMARY | 2024-12-02 09:27 | XMS_ITS | Patient Health Record ---
Author Organization [facility] Address [address] [place] [address] Care Team Providers Care Vending Machine Refiller Name Role Phone Geetha Acosta Unavailable [phone] Reason For Referral No Information Problems Problem Type SNOMED Code ICD Code Onset Dates Problem Status W/U Status Risk Notes Problem Asthma (disorder) (828387205) Asthma, unspecified, unspecified status (493.90) Active confirmed Major Problem Female genital organ symptoms (460900983) Other specified symptom associated with female genital organs (625.8) Active confirmed Major Problem Osteoarthritis (950265734) Osteoarthrosis, unspecified whether generalized or localized, unspecified site (715.90) Active confirmed Major Plan Of Treatment No Information Insurance Providers Payer Name Payer Address Payer Phone Subscriber Number Group Number Insured Name Patient Relationship to Insured Coverage Start Date Coverage End Date [facility] [address] [address] [place] [address] [id number] ALEJANDRA ISSULEIMAN Self - patient is the insured
--- OUTSIDE RECORDS SUMMARY | 2024-12-02 09:27 | XMS_ITS | Encounter Summary ---
Author Organization [facility] Address [address] [place] [address] Care Team Providers Care Timber Framer Name Role Phone Unavailable Primary Care Provider Unavailabl e Encounter Details Date Type Department Care Team (Late st Contact Info) Description 03/25/2024 Lab Requisition [facility] - Main Lab [address] [place] [address] Maddie Campbell MD [address] [phone] Other abnormal findings in urine Social History [...] beta-hemolytic Group B(A) 03/27/2024 1:13 PM EST [facility] ([facility]) [facility] Comment: Susceptibility testing is not routinely [...] MICROBIOLOGY - G ENERAL ORDERABLES Final Result [facility] ([facility] [address] [place] [address], [place] [phone] documented in this encounter Visit Diagnoses Diagnosis Other abnormal findings in urine documented in this encounter
--- OUTSIDE RECORDS SUMMARY | 2024-12-02 09:27 | XMS_ITS | Patient Health Record ---
Author Organization [facility] Address [address] [place] [address] Care Team Providers Care Registered Nurse Maternal Child Name Role Phone Beny Alegre MDneth Primary Care Provider Julio Leo [phone] Allergies Allergen (clinical drug ingredient) Drug/Non Drug Allergy documented on EMR Reaction Allergy Type Onset Date Status anti fungal medicati on (uncoded) Unknown Allergy Active Reason For Referral No Information Medications Medication SIG (Take, Route, Frequency, Duration) Notes Start Date End Date Status Atorvastatin Calcium 10 MG 1 tablet Oral ly Once a day Active ProAir HFA 108 (90 Base) MCG/ACT 2 puffs as needed Inhalation prn Active Vitamin D3 1000 UNIT 1 capsule Orally On ce a day Active Lisinopril 5 MG 1 tablet Orally Once a day Active Social History Tobacco Use: Social History Observation Description Date Details (start date - stop date) Never Smoker NA - NA Tobacco Use/Smoking Question Answer Notes Patient is a nonsmoker Alcohol Screen Question Answer Notes Did you have a drink containing alcohol in the p ast year? No Points 0 Interpretation Negative Section Notes: Nonsmoker; no sig alcohol. She is originally from the [facility]. Problems Problem Type SNOMED Code ICD Code Onset Dates Problem Status W/U Status Risk Notes Problem 338049142 Encounter for screening for malignant neoplasm of colon (Z12.11) Active confirmed Problem 792557210037379 Pre-procedural examination (Z01.818) Active confirmed Plan Of Treatment Pending Test Test Name Order Date GI BIOPSY 02/08/2018 Future Test Test Name Order Date COLONOSCOPY 11/11/2017 Insurance Providers Payer Name Payer Address Payer Phone Subscriber Number Group Number Insured Name Patient Relationship to Insured Coverage Start Date Coverage End Date [facility] [address] [address] [place], [place] [id number] SULEIMAN BRICE Self - patient is the insured Medical (General) History Medical History History ICD Code Denies [place],DM,CVA,renal disease Hypertension Hyperlipidemia Migraine headaches Asthma--prn inhaer Surgical History Surgery Date(Month/Year) Tubal ligation
[2024-12-02 09:36] LABS: MANUAL DIFF FLAG NO
[2024-12-02 10:29] LABS: Hematocrit 38.3 % (37.0-47.0); Hemoglobin 12.6 g/dl (12.0-16.0); Imm Gran Abs Auto 0.01 X10*3/uL (0.00-0.03); Imm Gran Pct Auto 0.2 % (0.0-0.4); Lymphocytes Absolute Auto 2.1 X10*3/uL (1.2-4.9); Mean Corpuscular HGB Conc 32.9 g/dl (31.0-35.0); Mean Corpuscular Hemoglobin 28.3 pg (27.0-33.0); Mean Corpuscular Volume 86.1 fL (80.0-98.0); NRBC Abs Auto 0.000 X10*3/uL (0.0-0.012); NRBC Pct Auto 0.0 /100WBC (0.0-0.2); Platelet Count 215 X10*3/uL (160-400); Red Blood Count 4.45 X10*6/uL (4.20-5.50); White Blood Count 6.7 X10*3/uL (4.8-10.8)
[2024-12-02 10:30] LABS: Appearance Urine Clear; Glucose Urine UA Negative (Negative); PH 5.5 (5.0-9.0); Specific Gravity - Urine 1.015 (1.005-1.025); UMIC TRIGGER UACC YES
[2024-12-02 10:33] LABS: UACC Culture Trigger YES
[2024-12-02 10:41] LABS: Hemoglobin A1C 136.9813 umol/L; Total Hemoglobin (HGBA1C) 3325.6328 umol/L
[2024-12-02 11:20] LABS: Alanine Aminotransferase 35 U/L (0-31); Albumin Level 4.2 g/dL (3.5-5.0); Alkaline Phosphatase 50 U/L (39-117); Anion Gap 11 (12-20); Aspartate Amino Transferase 26 U/L (5-31); Blood Urea Nitrogen 24 mg/dL (9-16); Calcium 9.5 mg/dL (8.4-10.2); Carbon Dioxide 26 mmol/L (22-29); Chloride 108 mmol/L (96-108); Cholesterol 234 mg/dL (<200); Estimated Glomerular Filt Rate 57; Free T4 (Free Thyroxine) 1.01 ng/dL (0.71-1.85); HDL Cholesterol 44 mg/dL (>40); Magnesium 2.0 mg/dL (1.6-2.6); Potassium 4.2 mmol/L (3.3-5.1); Sodium 141 mmol/L (135-145); Thyroid Stimulating Hormone 1.16 uIU/mL (0.32-4.0); Total Protein 7.1 g/dL (6.5-8.0); Triglycerides 286 mg/dL (<150)
[2024-12-02 11:41] LABS: Folate 10.8 ng/mL (> or = 4.0); Vitamin B12 934 pg/mL (200-900)
== END 2024-12-02 09:22 | disposition home or self-care (01) ==
LOC: HO.LAB 09:21
PROVIDERS: PCP Internal Medicine; Visit Provider Internal Medicine
DX: R73.02 Impaired glucose tolerance (oral) (principal); E78.00 Pure hypercholesterolemia, unspecified; R30.0 Dysuria; E55.9 Vitamin D deficiency, unspecified
CPT/HCPCS: 36415; 80053; 80061; 81001; 82306; 82607; 82746; 83036; 83735; 84439; 84443; 85025; 87086

== ENCOUNTER 2024-12-05 14:44 | Outpatient (AMB) | payer MEDICARE, MEDICAID, SELFPAY ==
--- NOTE | 2024-12-05 14:47 | A.OFFPC_ITS ---
Vital Signs 12/05/24 14:48 Height 5 ft 4 in Weight 165 lb BMI 28.3 BP 122/64 Blood Pressure Location Lt brachial Position Sitting Intake Visit Reasons: 4 Month F/U- see comments Intake Note: Patient here for a 4 month follow up Hunting Sales Associate Required: No Accompanied by: Self / Same As Patient Allergies Iodinated Contrast Media Allergy (Intermediate, Verified 12/05/24 15:03) Hives ezetimibe (Zetia) Adverse Reaction (Intermediate, Verified 12/05/24 15:03) ? memory loss ? rosuvastatin (From Crestor) Adverse Reaction (Intermediate, Verified 12/05/24 15:03) Muscle cramps Lamisil Allergy (Mild, Uncoded 12/05/24 15:03) Rash Simvastatin Adverse Reaction (Intermediate, Uncoded 12/05/24 15:03) myalgias Medication List - Last Reconciled 12/05/24 by Jessica Smiley MD acetaminophen (Acetaminophen Extra Strength) 1,000 mg PO Q6H PRN albuterol sulfate 90 mcg/actuation 1 inh inhalation QID PRN calcium carbonate 600 mg PO BID 90 days cetirizine 10 mg PO DAILY PRN 30 days cholecalciferol (vitamin D3) 50 mcg PO DAILY 90 days cyanocobalamin (vitamin B-12) ER 1,000 mcg PO .three times a week fenofibrate 54 mg PO DAILY 90 days lisinopril 10 mg PO DAILY 90 days magnesium 250 mg PO DAILY nabumetone 750 mg PO BID PRN 7 days Ventolin HFA 90 mcg/actuation (albuterol sulfate) 2 puffs inhalation Q6H PRN 30 days NS vitamin E (dl, acetate) 45 mg PO DAILY Tobacco use date assessed: 12/05/24 Fall risk assessment: No Falls in past year Last assessed Fall Risk: 12/05/24 Dental Screening Dental Screen Date: 12/05/24 Did you have a dental visit in the last 12 months?: Yes Did you have a dental problem in the last 6 months where you did not have access to dental care?: No Was dental information given to patient?: Patient has dentist HPI HPI Comments History of Present Illness Details The patient is a 69-year-old female presenting with the management of multiple chronic conditions, including hypertension, prediabetes, and insomnia, as well as follow-up on previous findings of hematuria and kidney cysts. The patient reports a history of hematuria, which led to an MRI of the abdomen revealing benign kidney cysts and a pancreatic lesion that requires follow-up in a couple of years. No malignancy was detected, and the patient has been reassured about the benign nature of these findings. The patient's blood glucose levels have been stable, with a recent random glucose of 114 mg/dL and an HbA1c of 5.9%, indicating prediabetes. The patient is cautious about sugar intake and has made dietary adjustments to manage her blood glucose levels. The patient has a history of allergies to contrast, Crestor, Lamisil, and simvastatin, which previously caused muscle aches. She uses Tylenol for pain management and has an inhaler for respiratory issues, which she needs to refill. The patient experiences insomnia and has tried various remedies, including melatonin and natural supplements. Will send trazodone to try it out for 7 days and see how it goes. Patient aware that it can cause weight gain. The patient has been on lisinopril for hypertension management but reports occasional tongue swelling, which may indicate angioedema. Due to these symptoms, the medication is being changed to losartan, an angiotensin receptor melisa (ARB). The patient reports a persistent cough, which may be related to lisinopril use. The change to losartan is expected to alleviate this symptom. [facility] Medical History (Updated 12/05/24 @ 15:17 by Jessica Smiley MD) Personal history of COVID-19 (10/21/23) Seasonal allergies Asthma PMB (postmenopausal bleeding) Uterine prolapse Hyperparathyroidism Productive cough URI (upper respiratory infection) Polyuria B12 deficiency Hypovitaminosis D Proteinuria Hypertriglyceridemia Impaired glucose tolerance Surgical History Hx of colonoscopy Hx of tubal ligation (1989) Family History Father Arthritis Mother No problems noted. Social History Household Members: Spouse Housing: House Are you a primary direct care supervisor to a significant other at home: No Do you presently have visiting nurse or other home services: No Alcohol intake: never Comment: aware of trip hazard Patient Tobacco Use Status: Never used Tobacco e-Cigarette/Vaping Use: Never Used Second Hand Smoke Exposure: No service: No Current occupational status: unemployed Cognitive needs: No Hearing needs: No Vision needs: Yes Female Reproductive History Menstrual Age of Menarche: 12 Questionnaire PHQ-9 Over the last 2 weeks, how often have you been bothered by any of the following problems? 1. Little interest or pleasure in doing things: several days 2. Feeling down, depressed, or hopeless: several days 3. Trouble falling or staying asleep, or sleeping too much: not at all 4. Feeling tired or having little energy: not at all 5. Poor appetite or overeating: not at all 6. Feeling bad about yourself - or that you are a failure or have let yourself or your family down: several days 7. Trouble concentrating on things, such as reading the newspaper or watching television: not at all 8. Moving or speaking so slowly that other people could have noticed. Or the opposite - being so fidgety or restless that you have been moving around a lot more than usual: not at all 9. Thoughts that you would be better off or of hurting yourself in some way: several days Total score: 4 Depression Screening Interpretation: Positive Depression Screening Follow-up: Existing condition and Follow-up Visit Requested Depression Screening Done: Yes 69535 - PHQ-9 Billing: Yes Source: Developed by Drs. Julio Álvarez, Fernanda Lugo, Patrick Fontana and colleagues, with an educational saul from [employer]. Thrive Questionnaire Date Thrive assessed: 08/01/24 I am a: Patient What is your living situation today?: I have a steady place to live Within the past 12 months, did the food you bought not last and you didn't have the money to get more?: Often true Within the past 12 months, did you worry whether your food would run out before you got money to buy more?: Often true Do you have trouble paying for medicines?: No Do you have trouble getting transportation to medical appointments?: No Do you have trouble paying your heating and electricity bill?: Yes Do you have trouble taking care of your child, family member or friend?: Yes Do you have trouble with day-to-day activities such as bathing, preparing meals, shopping, managing finances, etc.?: Yes Are you currently unemployed and looking for a job?: No Are you interested in more education?: No Please select the resources that you would like help with: Food Currently or been in a relationship where the following occur: No concerns reported THRIVE Score: 3 AUDIT C Alcohol Use Questionnaire (AUDIT-C) 1. How often do you have a drink containing alcohol?: Never Total Score: 0 Score Reviewed/Action Taken: No CLARY-7 AMB Questionnaire CLARY-7 Date CLARY - 7 assessed: 08/01/24 Feeling nervous, anxious, or on edge: 1 = Several days Not being able to stop or control worryin = Several days Worrying too much about different things: 1 = Several days Trouble relaxin = Several days Being so restless that it is hard to sit still: 1 = Several days Becoming easily annoyed or irritable: 0 = Not at all Feeling afraid as if something awful might happen: 1 = Several days Total CLARY-7 score (0-4 normal; 5-9 mild; 10-14 moderate; 15-21 severe): 6 Source: Developed by Drs. Julio Álvarez, Fernanda Lugo, Patrick Fontana and colleagues, with an educational saul from [employer]. CLARY-7 Assessment Billing CLARY-7 Assessment Tool: CLARY-7 Assessment 80399 Review of Systems Const All systems reviewed & are unremarkable except as noted in HPI and below Card Denies chest pain at rest, Denies chest pain with activity, Denies edema, Denies irregular heart rhythm, Denies claudication, Denies dyspnea, Denies dyspnea on exertion, Denies orthopnea, Denies paroxysmal nocturnal dyspnea and Denies slow heart rate Resp Denies cough, Denies dyspnea and Denies dyspnea on exertion GI Denies abdominal pain, Denies change in bowel habits, Denies excessive flatus, Denies nausea and Denies vomiting Denies urinary incontinence, Denies urinary hesitancy and Denies urinary urgency Musc Denies atrophy, Denies deformity and Denies limited range of motion Skin/Breast Denies bleeding lesions, Denies changing lesions and Denies rash Physical exam (Primary Care) Vital Signs: Last Vital Signs BP 122/64 12/05/24 14:48 BMI result Body Mass Index 28.3 Tobacco/Smoking Status: Tobacco use Status Tobacco use date assessed 12/05/24 12/05/24 14:52 Patient Tobacco Use Status Never used Tobacco 12/05/24 14:52 Tobacco use type 02/16/24 14:41 e-Cigarette/Vaping Use Never Used 12/05/24 14:52 PHQ-9: PHQ-9 Score PHQ-9: Total score 4 12/05/24 15:06 Depression Screening Interpretation: Positive Depression Screening Follow-up: Existing condition and Follow-up Visit Requested Thrive Assessment: Date of Thrive Assessment Date Thrive assessed 08/01/24 12/05/24 14:52 Currently or been in a relationship where the following occur: No concerns reported Resp Effort & Inspection: normal respiratory effort Auscultation: clear to auscultation bilaterally Cardio Jugular venous distension: no JVD Rate: regular rate Rhythm: regular rhythm Heart sounds: S1 normal heart sound present and S2 normal heart sound present Extrem General: Yes full ROM Coding Level of Care Code Est Pt Level 4 (86855) Complex EM visit Add On G2211 Diagnoses Essential hypertension I10 Hypertriglyceridemia E78.1 Impaired glucose tolerance R73.02 Hypovitaminosis D E55.9 B12 deficiency E53.8 Additional Codes CLARY-7 Assessment Billing - CLARY-7 Assessment Tool: CLARY-7 Assessment 28239 ([id number]) PHQ-9 - 48391 - PHQ-9 Billing: Yes ([id number]) Time Spent (min) 22 Assessment & Plan Assessment & Plan (1) Essential hypertension: Code(s): I10 - Essential (primary) hypertension Category: Medical (2) Hypertriglyceridemia: Code(s): E78.1 - Pure hyperglyceridemia Category: Medical (3) Impaired glucose tolerance: Code(s): R73.02 - Impaired glucose tolerance (oral) Category: Medical (4) Hypovitaminosis D: Code(s): E55.9 - Vitamin D deficiency, unspecified Category: Medical (5) B12 deficiency: Code(s): E53.8 - Deficiency of other specified B group vitamins Category: Medical Plan The patient will be transitioned from lisinopril to losartan due to reported tongue swelling, which may indicate angioedema, and a persistent cough potentially related to lisinopril use. The change is expected to alleviate the cough and prevent further angioedema episodes. For insomnia, the patient has been prescribed Ambien for short-term use, with instructions to avoid daily use to prevent dependency. The patient is advised to continue dietary modifications to manage prediabetes, with regular monitoring of blood glucose levels. Follow-up imaging for the pancreatic lesion is planned in a couple of years, given its benign nature. The patient will continue current medications for other conditions, with refills provided as needed. Patient was informed and verbally consented to the use of an ambient scribe for clinic note documentation during this visit. Orders: Orders Lipid Panel 4 Months E78.5 - Hyperlipidemia, unspecified Vitamin D 25-OH Total 4 Months E55.9 - Vitamin D deficiency, unspecified Comprehensive Angela. Panel Fast 4 Months I10 - Essential (primary) hypertension Vitamin B12 and Folate 4 Months E53.8 - Deficiency of other specified B group vitamins Magnesium 4 Months E83.42 - Hypomagnesemia Medications: New losartan 25 mg PO DAILY 90 tabs 1RF 90 days trazodone 50 mg PO BEDTIME PRN 7 tabs 1RF sleep 7 days Refilled Ventolin HFA 90 mcg/actuation (albuterol sulfate) 2 puffs inhalation Q6H PRN 18 grams 2RF shortness of breath or wheezing 30 days NS Discontinued lisinopril Discontinued Reason: Patient Completed Course 10 mg PO DAILY 90 days 90 tabs 1RF
[2024-12-05 14:48] VITALS: BP 122/64; BMI 28.3
--- OUTSIDE RECORDS SUMMARY | 2024-12-05 15:33 | XMS_ITS | Patient Health Record ---
Author Organization [facility] Address [address] [place] [address] Care Team Providers Care Clinician Oncology Name Role Phone Beny Alegre MDneth Primary Care Provider Julio Leo [phone] Allergies Allergen (clinical drug ingredient) Drug/Non Drug [...] sig alcohol. She is originally from the [facility]. Problems Problem Type SNOMED Code ICD Code Onset Dates Problem Status W/U Status Risk Notes Problem 714240574 Encounter for screening for malignant neoplasm of colon (Z12.11) Active confirmed Problem 599150105816039 Pre-procedural examination (Z01.818) Active confirmed Plan Of Treatment Pending Test Test Name Order Date GI BIOPSY 02/08/2018 Future Test Test Name Order Date COLONOSCOPY 11/11/2017 Insurance Providers Payer Name Payer Address Payer Phone Subscriber Number Group Number Insured Name Patient Relationship to Insured Coverage Start Date Coverage End Date [facility] [address] [address] [place], [place] [id number] SULEIMAN BRICE Self - patient is the insured Medical (General) History Medical History History ICD Code Denies [place],DM,CVA,renal disease Hypertension Hyperlipidemia Migraine headaches Asthma--prn inhaer Surgical History Surgery Date(Month/Year) Tubal ligation
--- OUTSIDE RECORDS SUMMARY | 2024-12-05 15:33 | XMS_ITS | Encounter Summary ---
Author Organization [facility] Address [address] [address] Phone Care Team Providers Care Warehouse Laborer Name Role Phone Jessica Stanton MD Primary Care Provider [phone] Encounter Details Date Type Department Care Team (Late st Contact Info) Description 03/13/2024 Office Communication [facility] [address] [place] [address] Morena Pimentel ARNP [address] [address] Social History Tobacco Use Types [...] Office Visit [facility] [address] [address] Morena Pimentel ARNP [address] [address] documented as of this encounter Visit Diagnoses Not on filedocumented in this encounter Care Teams Warehouse Laborer Relationship Specialty Start Date End Date Jessica Stanton MD [address] [place] [address] PCP - General Internal Medicine 07/24/20 documented as of this encounter
--- OUTSIDE RECORDS SUMMARY | 2024-12-05 15:33 | XMS_ITS | Patient Health Record ---
Author Organization [facility] Address [address] [place] [address] Care Team Providers Care Chain Maker Name Role Phone Geetha Acosta Unavailable [phone] Reason For Referral No Information Problems Problem Type SNOMED Code ICD Code Onset Dates Problem Status W/U Status Risk Notes Problem Asthma (disorder) (862863194) Asthma, unspecified, unspecified status (493.90) Active confirmed Major Problem Female genital organ symptoms (600966562) Other specified symptom associated with female genital organs (625.8) Active confirmed Major Problem Osteoarthritis (698123304) Osteoarthrosis, unspecified whether generalized or localized, unspecified site (715.90) Active confirmed Major Plan Of Treatment No Information Insurance Providers Payer Name Payer Address Payer Phone Subscriber Number Group Number Insured Name Patient Relationship to Insured Coverage Start Date Coverage End Date [facility] [address] [address] [place] [address] [id number] ALEJANDRA ISSULEIMAN Self - patient is the insured
--- OUTSIDE RECORDS SUMMARY | 2024-12-05 15:33 | XMS_ITS | Encounter Summary ---
Author Organization [facility] Address [address] [place] [address] Care Team Providers Care Events Traffic Controller Name Role Phone Unavailable Primary Care Provider Unavailabl e Encounter Details Date Type Department Care Team (Late st Contact Info) Description 03/25/2024 Lab Requisition [facility] - Main Lab [address] [place] [address] Maddie Campbell MD [address] [phone] Other abnormal findings in urine Social History [...] beta-hemolytic Group B(A) 03/27/2024 1:13 PM EST [facility] ([facility]) [facility] Comment: Susceptibility testing is not [...] MICROBIOLOGY - G ENERAL ORDERABLES Final Result [facility] ([facility] [address] [place] [address], [place] [phone] documented in this encounter Visit Diagnoses Diagnosis Other abnormal findings in urine documented in this encounter
== END 2024-12-05 15:20 | disposition home or self-care (01) ==
LOC: HO.HMCH 14:45
PROVIDERS: PCP Internal Medicine; Visit Provider Internal Medicine
DX: I10 Essential (primary) hypertension (principal); E78.1 Pure hyperglyceridemia; R73.02 Impaired glucose tolerance (oral); E55.9 Vitamin D deficiency, unspecified; E53.8 Deficiency of other specified B group vitamins

== ENCOUNTER → 2024-12-05 14:44 | Outpatient (BNVA) | payer MEDICARE, MEDICAID, SELFPAY | PROVIDERS: PCP Internal Medicine; Visit Provider Internal Medicine | DX: I10 Essential (primary) hypertension (principal); R73.03 Prediabetes; G47.00 Insomnia, unspecified; E78.1 Pure hyperglyceridemia; R73.02 Impaired glucose tolerance (oral); E55.9 Vitamin D deficiency, unspecified; E53.8 Deficiency of other specified B group vitamins | CPT/HCPCS: 96127; 99212 ==

== ENCOUNTER 2025-01-02 13:29 | Outpatient (REF) | payer MEDICARE, MEDICAID, SELFPAY ==
--- NOTE | ~2025-01-02 | XR_ITS ---
EXAMINATION: XR CHEST CLINICAL INFORMATION: R05.9 - Cough, unspecified COMPARISON: June 09, 2022 TECHNIQUE: 2 views of the chest were obtained. FINDINGS: No consolidation, pleural effusion or pneumothorax. No hyperinflation. Mild pulmonary reticular pattern. Cardiomediastinal silhouette size is normal. Multilevel thoracolumbar spondylosis. 20% superior endplate compression deformities in the mid thoracic spine vertebral bodies likely old and osteoporotic. XR/XR chest 2V IMPRESSION: No acute airspace disease. Multilevel spondylosis. Stable chest. Electronically signed by: Amos Lantigua MD 01/02/2025 02:53 PM EDT
== END 2025-01-02 13:30 | disposition home or self-care (01) ==
LOC: HO.HMGCX 13:29
PROVIDERS: PCP Internal Medicine; Visit Provider Physician Assistant
DX: J06.9 Acute upper respiratory infection, unspecified (principal); R05.3 Chronic cough
CPT/HCPCS: 71046; 99212

== ENCOUNTER 2025-01-02 13:29 | Outpatient (AMB) | payer MEDICARE, MEDICAID, SELFPAY ==
--- NOTE | 2025-01-02 14:19 | AM.OFFWIN_ITS ---
Intake Vital Signs 01/02/25 14:20 Height 5 ft 4 in Weight 167 lb 8 oz BMI 28.7 BP 134/60 Blood Pressure Location Rt brachial Position Sitting Pulse 69 Pulse Source Pulse Oximeter Temp 98.3 F Temp Source Oral Pulse Oximetry (%) 98 Oxygen Delivery Method Room Air Intake Visit Reasons: EP-cough, sore throat Patient Tobacco Use Status: Never used Tobacco Phlebotomist Medical Lab Assistant Required: No Is last menstrual period known: No Post menopausal: Yes Patient : No Allergies Iodinated Contrast Media Allergy (Intermediate, Verified 01/02/25 14:26) Hives ezetimibe (Zetia) Adverse Reaction (Intermediate, Verified 01/02/25 14:26) ? memory loss ? rosuvastatin (From Crestor) Adverse Reaction (Intermediate, Verified 01/02/25 14:26) Muscle cramps Lamisil Allergy (Mild, Uncoded 12/05/24 15:03) Rash Simvastatin Adverse Reaction (Intermediate, Uncoded 12/05/24 15:03) myalgias HPI HPI Comments History of Present Illness Details History - The patient is a 69-year-old female pr esenting with a cough. - The cough has persisted for several mo nths despite [id number]-mla-[id number] treatments. - The patient reports urinary incontinen ce associated with coughing episodes. - She has a history of asthma and uses a n inhaler, which provides some relief. - The patient denies shortness of breath or wheezing but reports a rattling sound when breathing. - She is traveling to [facility] this weeken d Physical Exam General: Cooperative, healthy appearing, comfortable and no acute distress Orientation/consciousness: Patient oriented x3 Limitations: No limitations Head: Normal to inspection, but patient reports headache Ears: Hearing grossly normal bilaterally, external ears normal, TM's with effusion bilaterally Nose: Normal external nose present, Normal nares present and No nasal discharge present Face and sinus: Normal facial exam, but sinuses tender Mouth: Normal oral and palatal mucosa present and moist mucous membranes Throat: Yes tonsils normal, Yes uvula midline. Posterior oropharynx erythema, no exudates Eyes: Appearance normal, both eyes and all related structures Neck: Normal visual inspection, full ROM Respiratory: Clear to auscultation bilaterally. Normal respiratory effort, able to speak in complete sentences, not Actively coughing, no respiratory distress, not tachypneic, no tripod positioning and no use of accessory muscles Cardiovascular: Regular rate and rhythm. Normal S1 and S2 Skin: No rashes or lesions noted Neuro: Patient oriented x3 Extremities: Normal to inspection and Yes no clubbing, cyanosis or edema PFSH Medical History Personal history of COVID-19 (10/21/23) Seasonal allergies Asthma PMB (postmenopausal bleeding) Uterine prolapse Hyperparathyroidism Productive cough URI (upper respiratory infection) Polyuria B12 deficiency Hypovitaminosis D Proteinuria Hypertriglyceridemia Impaired glucose tolerance Surgical History Hx of colonoscopy Hx of tubal ligation (1989) Family History Father Arthritis Mother No problems noted. Social History Household Members: Spouse Housing: House Are you a primary laboratory animal caretaker to a significant other at home: No Do you presently have visiting nurse or other home services: No Alcohol intake: never Comment: aware of trip hazard Patient Tobacco Use Status: Never used Tobacco e-Cigarette/Vaping Use: Never Used Second Hand Smoke Exposure: No Patient : No service: No Current occupational status: unemployed Cognitive needs: No Hearing needs: No Vision needs: Yes Female Reproductive History Menstrual Age of Menarche: 12 Review of Systems Const All systems reviewed & are unremarkable except as noted in HPI and below Physical Exam Vital Signs: Last Vital Signs Temp 98.3 F 01/02/25 14:20 Pulse 69 01/02/25 14:20 BP 134/60 01/02/25 14:20 Pulse Ox 98 01/02/25 14:20 Oxygen Delivery Method Room Air 01/02/25 14:20 BMI result Body Mass Index 28.7 Assessment & Plan Assessment & Plan (1) URI, acute: Code(s): J06.9 - Acute upper respiratory infection, unspecified Plan: Plan - VSS, pt well appearing and PE remarkable for posterior oropharynx erythema. - Obtain a chest x-ray to rule out pneumonia or other underlying conditions contributing to the chronic cough. - Prescribe Augmentin to address potential bacterial infection as pt is traveling to [facility] in a few days. - Prescribed a cough suppressant to be taken at bedtime to alleviate nocturnal coughing and improve sleep quality. - Advise follow-up after chest x-ray results to determine if additional antibiotics are necessary (Allen) Patient was informed and verbally consented to the use of an ambient scribe for clinic note documentation during this visit Orders: Orders XR chest 2V Today R05.9 - Cough, unspecified Medications: New benzonatate 200 mg PO BEDTIME PRN 10 caps 0RF cough amoxicillin-pot clavulanate 875-125 mg 1 tab PO Q12H 14 tabs 0RF Coding Level of Care Code Est Pt Level 4 (84293) Diagnoses URI, acute J06.9
[2025-01-02 14:20] VITALS: BP 134/60; PULSE 69; TEMP 36.8; O2SAT 98; BMI 28.7
--- OUTSIDE RECORDS SUMMARY | 2025-01-02 14:20 | XMS_ITS | Patient Health Record ---
Author Organization [facility] Address [address] [place] [address] Care Team Providers Care White Sourer Name Role Phone Geetha Acosta Unavailable [phone] Reason For Referral No Information Problems Problem Type SNOMED Code ICD Code Onset Dates Problem Status W/U Status Risk Notes Problem Asthma, unspecified, unspecified status (493.90) Active confirmed Major Problem Female genital organ symptoms (155662237) Other specified symptom associated with female genital organs (625.8) Active confirmed Major Problem Osteoarthritis (812223210) Osteoarthrosis, unspecified whether generalized or localized, unspecified site (715.90) Active confirmed Major Plan Of Treatment No Information Insurance Providers Payer Name Payer Address Payer Phone Subscriber Number Group Number Insured Name Patient Relationship to Insured Coverage Start Date Coverage End Date [facility] [address] [address] [place] [address] [id number] SULEIMAN BRICE Self - patient is the insured
--- OUTSIDE RECORDS SUMMARY | 2025-01-02 14:20 | XMS_ITS | Encounter Summary ---
Author Organization [facility] Address [address] [address] Phone Care Team Providers Care Floors Buffer Name Role Phone Jessica Stanton MD Primary Care Provider Encounter Details Date Type Department Care Team (Late st Contact Info) Description 03/13/2024 Office Communication [facility] [address] [place] [phone] Morena Pimentel ARNP [address] [address] Social History Tobacco Use Types [...] Office Visit [facility] [address] [phone] Morena Pimentel ARNP [address] [phone] documented as of this encounter Visit Diagnoses Not on filedocumented in this encounter Care Teams Floors Buffer Relationship Specialty Start Date End Date Jessica Stanton MD [address] [place] [address] PCP - General Internal Medicine 07/24/20 documented as of this encounter
--- OUTSIDE RECORDS SUMMARY | 2025-01-02 14:21 | XMS_ITS | Encounter Summary ---
Author Organization [facility] Address [address] [place] [address] Care Team Providers Care Automatic Grinding Machine Operator Name Role Phone Unavailable Primary Care Provider Unavailabl e Encounter Details Date Type Department Care Team (Late st Contact Info) Description 03/25/2024 Lab Requisition [facility] - Main Lab [address] [place] [address] Maddie Campbell MD [address] [phone] Other abnormal findings in urine Social History [...] beta-hemolytic Group B(A) 03/27/2024 1:13 PM EST [facility] Comment: Susceptibility testing is not routinely [...] MICROBIOLOGY - G ENERAL ORDERABLES Final Result [facility] [address] [place] [address], [place] [phone] documented in this encounter Visit Diagnoses Diagnosis Other abnormal findings in urine documented in this encounter
--- OUTSIDE RECORDS SUMMARY | 2025-01-02 14:21 | XMS_ITS | Patient Health Record ---
Author Organization [facility] Address [address] [place] [address] Care Team Providers Care Photolettering Machine Operator Name Role Phone Beny Alegre MDneth Primary Care Provider Julio Leo [phone] Allergies Allergen (clinical drug ingredient) Drug/Non Drug [...] alcohol. She is originally from the [facility]. Problems Problem Type SNOMED Code ICD Code Onset Dates Problem Status W/U Status Risk Notes Problem [id number] Encounter for screening for malignant neoplasm of colon (Z12.11) Active confirmed Problem [id number] Pre-procedural examination (Z01.818) Active confirmed Plan Of Treatment Pending Test Test Name Order Date GI BIOPSY 02/08/2018 Future Test Test Name Order Date COLONOSCOPY 11/11/2017 Insurance Providers Payer Name Payer Address Payer Phone Subscriber Number Group Number Insured Name Patient Relationship to Insured Coverage Start Date Coverage End Date [facility] [address] [address] [place], [place] [id number] SULEIMAN BRICE Self - patient is the insured Medical (General) History Medical History History ICD Code Denies LA,DM,CVA,renal disease Hypertension Hyperlipidemia Migraine headaches Asthma--prn inhaer Surgical History Surgery Date(Month/Year) Tubal ligation
== END 2025-01-02 14:55 | disposition home or self-care (01) ==
PROVIDERS: PCP Internal Medicine; Visit Provider Physician Assistant
DX: J06.9 Acute upper respiratory infection, unspecified (principal)

== ENCOUNTER → 2025-01-02 14:39 | Outpatient (BNV) | payer MEDICARE, MEDICAID, SELFPAY | PROVIDERS: PCP Internal Medicine; Visit Provider Radiology Diagnostic Radiology | DX: R05.9 Cough, unspecified (principal); M47.895 Other spondylosis, thoracolumbar region | CPT/HCPCS: 71046 ==

== ENCOUNTER 2025-01-31 10:51 | Outpatient (AMB) | payer MEDICARE, MEDICAID, SELFPAY ==
[2025-01-31 10:59] VITALS: BP 130/70; PULSE 59; O2SAT 98; BMI 29.0
--- NOTE | 2025-01-31 10:59 | A.OFFVIS_ITS ---
Vital Signs 01/31/25 10:59 Height 5 ft 4 in Weight 168 lb 13.985 oz BMI 29.0 BP 130/70 Blood Pressure Location Lt brachial Position Sitting Pulse 59 Pulse Source Pulse Oximeter Pulse Oximetry (%) 98 Oxygen Delivery Method Room Air Intake Visit Reasons: joint pain Intake Note: Patient is here for joint pain. Rn Call Center Name: thomas [phone] Accompanied by: Self / Same As Patient Allergies Iodinated Contrast Media Allergy (Intermediate, Verified 01/31/25 11:02) Hives ezetimibe (Zetia) Adverse Reaction (Intermediate, Verified 01/31/25 11:02) ? memory loss ? rosuvastatin (From Crestor) Adverse Reaction (Intermediate, Verified 01/31/25 11:02) Muscle cramps Lamisil Allergy (Mild, Uncoded 12/05/24 15:03) Rash Simvastatin Adverse Reaction (Intermediate, Uncoded 12/05/24 15:03) myalgias HPI HPI joint pain: Details: New Patient Evaluation. She is having intermittent hand pain. 1-2 years ago she had hard time closing her hands. That has resolved. She returned from [facility] 3 weeks ago. She had benefit with reduced pain while she was in [facility]. She was swimming every day and felt well. Hard to go up stairs due to bilateral knee pain. Rest and massage helps. Occurs for a day or two then resolves. Uses tylenol 500mg 1-2 PRN pain. No family history of autoimmune disease. Her grandparents had arthritis and required a wheelchair to ambulate later on in their life. Medical history and medication list reviewed with patient. [facility] Medical History Personal history of COVID-19 (10/21/23) Seasonal allergies Asthma PMB (postmenopausal bleeding) Uterine prolapse Hyperparathyroidism Productive cough URI (upper respiratory infection) Polyuria B12 deficiency Hypovitaminosis D Proteinuria Hypertriglyceridemia Impaired glucose tolerance Surgical History Hx of colonoscopy Hx of tubal ligation (1989) Family History Father Arthritis Mother No problems noted. Social History Household Members: Spouse Housing: House Are you a primary manager respiratory care to a significant other at home: No Do you presently have visiting nurse or other home services: No Alcohol intake: never Comment: aware of trip hazard Patient Tobacco Use Status: Never used Tobacco e-Cigarette/Vaping Use: Never Used Second Hand Smoke Exposure: No service: No Current occupational status: unemployed Cognitive needs: No Hearing needs: No Vision needs: Yes Female Reproductive History Menstrual Age of Menarche: 12 Physical Exam Vital Signs: Last Vital Signs Pulse 59 01/31/25 10:59 BP 130/70 01/31/25 10:59 Pulse Ox 98 01/31/25 10:59 Oxygen Delivery Method Room Air 01/31/25 10:59 BMI result Body Mass Index 29.0 Const Other: General: Comfortable CVS: RRR Respiratory: clear to auscultation bilaterally. Good respiratory effort Skin: No lesions seen MSK: Dupuytren's contractures present right worse than left. Right hand palmar aspect nodule present on flexor tendon. She is able to make a fist. Good laundry machine operator strength. Trigger right thumb observed. No synovitis. Heberden nodes and Carola's nodes present. Tender to palpate bilateral knees. No knee effusions. Normal range of motion of upper extremities and lower extremities. Results Reviewed Results Reviewed: Ordering Physician: Jessica Stanton MD Date of Service: 08/02/24 Procedure(s): XR knee RT 2V Accession Number(s): [id number] cc: Jessica Stanton MD~ CLINICAL HISTORY: M25.561 - Pain in right knee 2 view right knee Comparison: None Findings: Bones intact. No dislocations. Very mild medial compartment joint space narrowing. Superior and inferior patellar osteophytes. Trace suprapatellar joint effusion. No radiopaque foreign body. IMPRESSION: 1. No acute findings. Trace suprapatellar joint effusion and mild degenerative changes as described. Assessment & Plan Assessment & Plan (1) Localized osteoarthritis of knees, bilateral: Comment: Bilateral. Intermittent pain. Right knee x-ray reveals mild degenerative arthritis. Discussed conservative management. Code(s): M17.0 - Bilateral primary osteoarthritis of knee Category: Medical Plan: PT ordered Encouraged weight loss. 5-10 lb weight loss goal for next visit with healthy e ating and exercise I recommended aquatic therapy. Referral letter written and given to patient. She will try to arrange aquatic therapy at the [facility]. Return to clinic in 3 months (2) Osteoarthritis of hands, bilateral: Comment: Clinical diagnosis. Discussed diagnosis, natural course and management. Code(s): M19.041 - Primary osteoarthritis, right hand; M19.042 - Primary osteoarthritis, left hand Category: Medical Plan: OT ordered Return to clinic in 3 months (3) Dupuytren contracture of both hands: Comment: Bilateral. Code(s): M72.0 - Palmar fascial fibromatosis [Dupuytren] Category: Medical Plan: OT ordered Information given to patient on Dupuytren's contractures Return to clinic in 3 months Orders: Orders OT Evaluation and Treatment Today M19.041 - Primary osteoarthritis, right hand, M19.042 - Primary osteoarthritis, left hand, M72.0 - Palmar fascial fibromato sis [Dupuytren] PT Evaluation and Treatment Today M17.0 - Bilateral primary osteoarthritis of knee Coding Level of Care Code New Pt Level 4 (75772) Diagnoses Localized osteoarthritis of knees, bilateral M17.0 Osteoarthritis of hands, bilateral M19.041; M19.042 Dupuytren contracture of both hands M72.0
--- OUTSIDE RECORDS SUMMARY | 2025-01-31 14:33 | XMS_ITS | Clinical Summary ---
Author Organization [facility] Address [address] [place] [phone] Phone Care Team Providers Care Varnisher Plasticoater Name Role Phone Jessica Stanton MD Primary Care Provider [phone] Allergies Active Allergy Reactions Criticality Noted Date [...] 07/24/2020 Blood in urine 07/24/2020 Proteinuria 07/24/2020 Family History Medical History Relation Comments Cancer [...] Office Visit [facility] [address] [address] Morena Pimentel ARNP [address] [phone] Health Maintenance Due Date Last Done Comments Breast Cancer Screening 1954 Pneumococcal Vaccine: 50+ Ye ars (1 of 2 - PCV) 1973 Colorectal Cancer Screening: Annual FOBT 2003 Colorectal Cancer Screening: Colonoscopy 2003 Colorectal Cancer Screening: Sigmoidoscopy 2003 Influenza Vaccine (#1) 2025 Hepatitis B Vaccine Aged Out No longe r eligible based on patient's age to complete this topic Insurance [facility] Medicaid [place] Care Teams Varnisher Plasticoater Relationship Specialty Start Date End Date Jessica Stanton MD [address] [place] [address] PCP - General Internal Medicine 07/24/20
--- OUTSIDE RECORDS SUMMARY | 2025-01-31 14:33 | XMS_ITS | Encounter Summary ---
Author Organization [facility] Address [address] [address] Phone Care Team Providers Care Fiber Design Engineer Name Role Phone Jessica Stanton MD Primary Care Provider [phone] Encounter Details Date Type Department Care Team (Late st Contact Info) Description 03/13/2024 Office Communication [facility] [address] [place] [phone] Morena Pimentel ARNP [address] [address] Social History Tobacco Use Types [...] Office Visit [facility] [address] [address] Morena Pimentel ARNP [address] [address] documented as of this encounter Visit Diagnoses Not on filedocumented in this encounter Care Teams Fiber Design Engineer Relationship Specialty Start Date End Date Jessica Stanton MD [address] [place] [address] PCP - General Internal Medicine 07/24/20 documented as of this encounter
--- OUTSIDE RECORDS SUMMARY | 2025-01-31 14:33 | XMS_ITS | Encounter Summary ---
Author Organization [facility] Address [address] [place] [address] Care Team Providers Care Ramp Service Agent Name Role Phone Unavailable Primary Care Provider Unavailabl e Encounter Details Date Type Department Care Team (Late st Contact Info) Description 03/25/2024 Lab Requisition [facility] - Main Lab [address] [place] [address] Maddie Campbell MD [address] [id number] Other abnormal findings in urine Social History [...] beta-hemolytic Group B(A) 03/27/2024 1:13 PM EST [facility] Comment: Susceptibility testing is not [...] MICROBIOLOGY - G ENERAL ORDERABLES Final Result [facility] [address] [place] [address], [place] [phone] documented in this encounter Visit Diagnoses Diagnosis Other abnormal findings in urine documented in this encounter
--- OUTSIDE RECORDS SUMMARY | 2025-01-31 14:33 | XMS_ITS | Patient Health Record ---
Author Organization [facility] Address [address] [place] [address] Care Team Providers Care Postal Carrier Name Role Phone Geetha Acosta Unavailable [phone] Reason For Referral No Information Problems Problem Type SNOMED Code ICD Code Onset Dates Problem Status W/U Status Risk Notes Problem Asthma (disorder) (789648299) Asthma, unspecified, unspecified status (493.90) Active confirmed Major Problem Female genital organ symptoms (155439235) Other specified symptom associated with female genital organs (625.8) Active confirmed Major Problem Osteoarthritis (665982754) Osteoarthrosis, unspecified whether generalized or localized, unspecified site (715.90) Active confirmed Major Plan Of Treatment No Information Insurance Providers Payer Name Payer Address Payer Phone Subscriber Number Group Number Insured Name Patient Relationship to Insured Coverage Start Date Coverage End Date [facility] [address] [address] [place] [address] [id number] ALEJANDRA ISSULEIMAN Self - patient is the insured
--- OUTSIDE RECORDS SUMMARY | 2025-01-31 14:33 | XMS_ITS | Clinical Summary ---
Author Organization [address] Address [address] [place] [address] Phone Care Team Providers Care Log Turner Name Role Phone Unavailable Primary Care Provider [...] DTaP,Tdap,and Td Vaccines (1 - Tdap) 1973 Zoster Vaccines (1 of 2) 2004 RSV Immunization Adult Patients (1 - Risk 60-74 years 1-dose series) 2014 Cholesterol Screening (Lipid Panel) 06/16/2023 Colorectal Cancer Screening: Colonoscopy 06/16/2023 Falls Risk Assessment 06/16/2023 Hepatitis C Screening 06/16/2023 Medicare Annual Wellness Visit 06/16/2023 Osteoporosis Screening (Bone Density Screening) 06/16/2023 Social Influencers of Health Screening 06/16/2023 Depression Screening 05/18/2024 Hypertension/CHF/CAD Annual BMP Blood Test 08/29/2024 COVID-19 Vaccine (2 - 2024-2 6 season) 2025 12/29/2020 Influenza Vaccine (#1) 2025 4, 02/17/2022 Pneumococcal Vaccine: 50+ Years Completed 01/11/2024 HIB Vaccines Aged Out No longer eligi [...] age to complete this topic Meningococcal B Vaccine Aged Out No l onger eligible based on patient's age to complete this topic RSV Immunization Patients Under 20 months Aged Out No longer eligible b ased on patient's age to complete this topic Varicella Vaccines Aged Out No longer eligible based on patient's age to complete this topic Insurance [employer] [place] - [place]
--- OUTSIDE RECORDS SUMMARY | 2025-01-31 14:33 | XMS_ITS | Patient Health Record ---
Author Organization [facility] Address [address] [place] [address] Care Team Providers Care Mill Representative Name Role Phone Beny Alegre MDneth Primary Care Provider Julio Leo [phone] Allergies Allergen (clinical drug ingredient) Drug/Non Drug [...] sig alcohol. She is originally from [place] [facility]. Problems Problem Type SNOMED Code ICD Code Onset Dates Problem Status W/U Status Risk Notes Problem [id number] Encounter for screening for malignant neoplasm of colon (Z12.11) Active confirmed Problem [id number] Pre-procedural examination (Z01.818) Active confirmed Plan Of Treatment Pending Test Test Name Order Date GI BIOPSY 02/08/2018 Future Test Test Name Order Date COLONOSCOPY 11/11/2017 Insurance Providers Payer Name Payer Address Payer Phone Subscriber Number Group Number Insured Name Patient Relationship to Insured Coverage Start Date Coverage End Date [facility] [address] [address] [place], [place] [id number] SULEIMAN BRICE Self - patient is the insured Medical (General) History Medical History History ICD Code Denies [place],DM,CVA,renal disease Hypertension Hyperlipidemia Migraine headaches Asthma--prn inhaer Surgical History Surgery Date(Month/Year) Tubal ligation
== END 2025-01-31 11:54 | disposition home or self-care (01) ==
LOC: HO.RHES 10:52
PROVIDERS: PCP Internal Medicine; Visit Provider Internal Medicine Rheumatology
DX: M17.0 Bilateral primary osteoarthritis of knee (principal); M19.041 Primary osteoarthritis, right hand; M19.042 Primary osteoarthritis, left hand; M72.0 Palmar fascial fibromatosis [Dupuytren]
CPT/HCPCS: 99204

== ENCOUNTER → 2025-01-31 10:51 | Outpatient (BNVA) | payer MEDICARE, MEDICAID, SELFPAY | PROVIDERS: PCP Internal Medicine; Visit Provider Internal Medicine Rheumatology | DX: M17.0 Bilateral primary osteoarthritis of knee (principal); M19.041 Primary osteoarthritis, right hand; M19.042 Primary osteoarthritis, left hand; M72.0 Palmar fascial fibromatosis [Dupuytren]; I10 Essential (primary) hypertension; E78.5 Hyperlipidemia, unspecified; E55.9 Vitamin D deficiency, unspecified; J45.909 Unspecified asthma, uncomplicated; Z79.899 Other long term (current) drug therapy | CPT/HCPCS: 99202; 99212 ==

== ENCOUNTER 2025-01-31 13:42 | Outpatient (AMB) | payer MEDICARE, MEDICAID, SELFPAY ==
[2025-01-31 13:52] VITALS: BP 122/58; PULSE 67; O2SAT 96; BMI 28.9
--- NOTE | 2025-01-31 13:52 | A.OFFPC_ITS ---
Vital Signs 01/31/25 13:52 Height 5 ft 4 in Weight 168 lb 2 oz BMI 28.9 BP 122/58 L Blood Pressure Location Lt brachial Position Sitting Pulse 67 Pulse Source Pulse Oximeter Pulse Oximetry (%) 96 Oxygen Delivery Method Room Air Intake Visit Reasons: Asthma Residential Recycle Driver Required: No Accompanied by: Self / Same As Patient Allergies Iodinated Contrast Media Allergy (Intermediate, Verified 01/31/25 14:32) Hives ezetimibe (Zetia) Adverse Reaction (Intermediate, Verified 01/31/25 14:32) ? memory loss ? rosuvastatin (From Crestor) Adverse Reaction (Intermediate, Verified 01/31/25 14:32) Muscle cramps Lamisil Allergy (Mild, Uncoded 01/31/25 14:32) Rash Simvastatin Adverse Reaction (Intermediate, Uncoded 01/31/25 14:32) myalgias Medication List - Last Reconciled 01/31/25 by Jessica Smiley MD acetaminophen (Acetaminophen Extra Strength) 1,000 mg PO Q6H PRN albuterol sulfate 90 mcg/actuation 1 inh inhalation QID PRN amoxicillin-pot clavulanate 875-125 mg 1 tab PO Q12H benzonatate 200 mg PO BEDTIME PRN calcium carbonate 600 mg PO BID 90 days cetirizine 10 mg PO DAILY PRN 30 days cholecalciferol (vitamin D3) 50 mcg PO DAILY 90 days cyanocobalamin (vitamin B-12) ER 1,000 mcg PO .three times a week fenofibrate 54 mg PO DAILY 90 days losartan 25 mg PO DAILY 90 days magnesium 250 mg PO DAILY trazodone 50 mg PO BEDTIME PRN 7 days Ventolin HFA 90 mcg/actuation (albuterol sulfate) 2 puffs inhalation Q6H PRN 30 days NS vitamin E (dl, acetate) 45 mg PO DAILY Tobacco use date assessed: 01/31/25 Fall risk assessment: No Falls in past year Last assessed Fall Risk: 01/31/25 Dental Screening Dental Screen Date: 01/31/25 Did you have a dental visit in the last 12 months?: No Did you have a dental problem in the last 6 months where you did not have access to dental care?: No Was dental information given to patient?: No HPI HPI Comments History of Present Illness Details The patient is a 69-year-old female presenting with shortness of breath and wheezing. These symptoms have persisted for over a month, and the albuterol inhaler has not been effective. While in [facility], the patient saw a professor of philosophy who advised the use of a long- acting inhaler for asthma. Anoro has been prescribed, and a referral to pulmonology has been made. The patient has hypertension, controlled with losartan, with a current blood pressure of 122/58 mmHg. She also has low vitamin-D on supplements. The patient also has mixed hyperlipidemia. Past treatments with rosuvastatin, simvastatin, and Cetiac led to adverse effects, including muscle cramps, myalgias, and memory loss. The plan is to discontinue fenofibrate and start a low dose of atorvastatin. [facility] Medical History (Updated 01/31/25 @ 14:40 by Jessica Smiley MD) Personal history of COVID-19 (10/21/23) Seasonal allergies Asthma PMB (postmenopausal bleeding) Uterine prolapse Hyperparathyroidism Productive cough URI (upper respiratory infection) Polyuria B12 deficiency Hypovitaminosis D Proteinuria Hypertriglyceridemia Impaired glucose tolerance Surgical History Hx of colonoscopy Hx of tubal ligation (1989) Family History Father Arthritis Mother No problems noted. Social History Household Members: Spouse Housing: House Are you a primary child care centre director to a significant other at home: No Do you presently have visiting nurse or other home services: No Alcohol intake: never Comment: aware of trip hazard Patient Tobacco Use Status: Never used Tobacco e-Cigarette/Vaping Use: Never Used Second Hand Smoke Exposure: No service: No Current occupational status: unemployed Cognitive needs: No Hearing needs: No Vision needs: Yes Female Reproductive History Menstrual Age of Menarche: 12 Questionnaire Thrive Questionnaire Date Thrive assessed: 08/01/24 I am a: Patient What is your living situation today?: I have a steady place to live Within the past 12 months, did the food you bought not last and you didn't have the money to get more?: Often true Within the past 12 months, did you worry whether your food would run out before you got money to buy more?: Often true Do you have trouble paying for medicines?: No Do you have trouble getting transportation to medical appointments?: No Do you have trouble paying your heating and electricity bill?: Yes Do you have trouble taking care of your child, family member or friend?: Yes Do you have trouble with day-to-day activities such as bathing, preparing meals, shopping, managing finances, etc.?: Yes Are you currently unemployed and looking for a job?: No Are you interested in more education?: No Please select the resources that you would like help with: Food Currently or been in a relationship where the following occur: No concerns reported THRIVE Score: 3 AUDIT C Alcohol Use Questionnaire (AUDIT-C) 1. How often do you have a drink containing alcohol?: Never 3. How often do you have six or more drinks on one occasion?: Never Total Score: 0 Score Reviewed/Action Taken: No CLARY-7 AMB Questionnaire CLARY-7 Date CLARY - 7 assessed: 08/01/24 Source: Developed by Drs. Julio Álvarez, Fernanda Lugo, Patrick Fontana and colleagues, with an educational saul from [employer]. Review of Systems Const All systems reviewed & are unremarkable except as noted in HPI and below Card Denies chest pain at rest, Denies chest pain with activity, Denies edema, Denies irregular heart rhythm, Denies claudication, Denies dyspnea, Denies dyspnea on exertion, Denies orthopnea, Denies paroxysmal nocturnal dyspnea and Denies slow heart rate Resp Denies cough, Denies dyspnea and Denies dyspnea on exertion GI Denies abdominal pain, Denies change in bowel habits, Denies excessive flatus, Denies nausea and Denies vomiting Physical exam (Primary Care) Vital Signs: Last Vital Signs Pulse 67 01/31/25 13:52 BP 122/58 L 01/31/25 13:52 Pulse Ox 96 01/31/25 13:52 Oxygen Delivery Method Room Air 01/31/25 13:52 BMI result Body Mass Index 28.9 Tobacco/Smoking Status: Tobacco use Status Tobacco use date assessed 01/31/25 01/31/25 13:55 Patient Tobacco Use Status Never used Tobacco 01/31/25 13:55 Tobacco use type 02/16/24 14:41 e-Cigarette/Vaping Use Never Used 01/31/25 13:55 Thrive Assessment: Date of Thrive Assessment Date Thrive assessed 08/01/24 01/31/25 13:55 Currently or been in a relationship where the following occur: No concerns reported Resp Effort & Inspection: normal respiratory effort Auscultation: clear to auscultation bilaterally Cardio Jugular venous distension: no JVD Rate: regular rate Rhythm: regular rhythm Heart sounds: S1 normal heart sound present and S2 normal heart sound present Extrem General: Yes full ROM Coding Level of Care Code Est Pt Level 4 (41892) Complex EM visit Add On G2211 Diagnoses Essential hypertension I10 Dyslipidemia E78.5 Hypovitaminosis D E55.9 Asthma J45.909 Time Spent (min) 22 Assessment & Plan Assessment & Plan (1) Essential hypertension: Code(s): I10 - Essential (primary) hypertension Category: Medical (2) Dyslipidemia: Code(s): E78.5 - Hyperlipidemia, unspecified Category: Medical (3) Hypovitaminosis D: Code(s): E55.9 - Vitamin D deficiency, unspecified Category: Medical (4) Asthma: Code(s): J45.909 - Unspecified asthma, uncomplicated Category: Medical Plan Plan Patient was informed and verbally consented to the use of an ambient scribe for clinic note documentation during this visit. 1. Asthma The patient will be prescribed Anoro, a long-acting inhaler, to manage asthma symptoms. A referral to pulmonology is also made for further evaluation and management. 2. Hypertension Hypertension is currently well-controlled with losartan, with a blood pressure reading of 122/58 mmHg. 3. Mixed Hyperlipidemia The patient will discontinue fenofibrate and start a low dose of atorvastatin due to previous adverse reactions to other statins. 4. Hypovitaminosis D Continue Vitamin D supplements. Orders: Referrals Pulmonology Referral J45.909 - Unspecified asthma, uncomplicated Medications: New umeclidinium-vilanterol 62.5-25 mcg/actuation (Anoro Ellipta) 1 inh inhalation DAILY 60 ea 2RF 30 days J45.909 - Unspecified asthma, uncomplicated atorvastatin (Lipitor) 10 mg PO BEDTIME 90 tabs 1RF 90 days Discontinued fenofibrate Discontinued Reason: Patient Completed Course 54 mg PO DAILY 90 days 90 tabs 1RF
== END 2025-01-31 14:44 | disposition home or self-care (01) ==
LOC: HO.HMCH 13:42
PROVIDERS: PCP Internal Medicine; Visit Provider Internal Medicine
DX: I10 Essential (primary) hypertension (principal); E78.5 Hyperlipidemia, unspecified; E55.9 Vitamin D deficiency, unspecified; J45.909 Unspecified asthma, uncomplicated

== ENCOUNTER 2025-02-09 13:23 | Outpatient (RCR) | payer MEDICARE, OTHER, SELFPAY ==
--- NOTE | 2025-02-09 14:39 | MHC.OT.DC ---
[facility] Office [address] [phone] F: [phone] F: [phone] Occupational Therapy Discharge Note Patient Name: Yue Kaur Provider: Dr Marcus Cochran Diagnosis: B/L OA; B/L Dupuytren's Contractures, Right Trigger Thumb Date of Evaluation: 02/09/25 Date of Discharge: 02/09/25 Treatments to Date: 1 Discharge Status: Independent with HEP Discharge Summary: Yue was seen for initial assessment and educated on self management techniques through joint protection, adaptive equipment, home exercises program, modalities and massage. She is confident with ability to carry over Ind'ly, no further outpatient needed at this time. 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 She was referred to OT for conservative management. On assessment today, she reports she has been doing exercises and stretches that she was prescribed in hand therapy several years ago and on a good day is able to maintain full active fist. She has arthritic changes in both hands but mild pain and only some functional weakness (pain w/ opening jars and containers). She has early signs of Dupuytren's with more cording in right hand, minimal visible/palpable in left. She also has early triggering in left ring finger, which we have splint with Oval 8 for nighttime wear. We have educated her on ROM and hand strengthening exercises, as well as use of heat modalities and massage for pain management and soft tissue release. We have reviewed use of adaptive devices for ease w/ gripping, but otherwise patient is confident she can continue w/ self management technqiues for OA. If Dupuytren's worsens w/ contractures, she will benefit from ortho assessment for further needs. Electronically Signed By: LAURA Mendoza/L CHT Reviewed/agree with student documentation: Therapist: Please Sign and return to therapist, thank you for your referral.
== END 2025-02-09 14:41 | disposition home or self-care (01) ==
LOC: HO.OT 13:23
PROVIDERS: PCP Internal Medicine; Visit Provider Internal Medicine Rheumatology
DX: M19.041 Primary osteoarthritis, right hand (principal); M19.042 Primary osteoarthritis, left hand; M72.0 Palmar fascial fibromatosis [Dupuytren]
CPT/HCPCS: 97110; 97140; 97165

== ENCOUNTER 2025-03-29 10:36 | Outpatient (REF) | payer MEDICARE, OTHER, SELFPAY ==
[2025-03-29 12:12] LABS: Alanine Aminotransferase 32 U/L (0-31); Albumin Level 4.6 g/dL (3.5-5.0); Alkaline Phosphatase 60 U/L (39-117); Anion Gap 11 (12-20); Aspartate Amino Transferase 26 U/L (5-31); Blood Urea Nitrogen 23 mg/dL (9-16); Calcium 10.1 mg/dL (8.4-10.2); Carbon Dioxide 28 mmol/L (22-29); Chloride 107 mmol/L (96-108); Cholesterol 240 mg/dL (<200); Estimated Glomerular Filt Rate 55; HDL Cholesterol 50 mg/dL (>40); Magnesium 2.1 mg/dL (1.6-2.6); Potassium 4.6 mmol/L (3.3-5.1); Sodium 141 mmol/L (135-145); Total Protein 7.6 g/dL (6.5-8.0); Triglycerides 173 mg/dL (<150)
[2025-03-29 12:31] LABS: Folate 11.7 ng/mL (> or = 4.0); Vitamin B12 1120 pg/mL (200-900)
--- OUTSIDE RECORDS SUMMARY | 2025-03-29 12:45 | XMS_ITS | Patient Health Record ---
Author Organization [facility] Address [address] [place] [address] Care Team Providers Care Incident Response Lead Name Role Phone Geetha Acosta Unavailable [phone] Reason For Referral No Information Problems Problem Type SNOMED Code ICD Code Onset Dates Problem Status W/U Status Risk Notes Problem Asthma (disorder) (105677669) Asthma, unspecified, unspecified status (493.90) Active confirmed Major Problem Female genital organ symptoms (215964799) Other specified symptom associated with female genital organs (625.8) Active confirmed Major Problem Osteoarthritis (180602595) Osteoarthrosis, unspecified whether generalized or localized, unspecified site (715.90) Active confirmed Major Plan Of Treatment No Information Insurance Providers Payer Name Payer Address Payer Phone Subscriber Number Group Number Insured Name Patient Relationship to Insured Coverage Start Date Coverage End Date [facility] [address] [address] [place] [address] [id number] ALEJANDRA ISSULEIMAN Self - patient is the insured
--- OUTSIDE RECORDS SUMMARY | 2025-03-29 12:45 | XMS_ITS | Clinical Summary ---
Author Organization [address] [facility] Address [address] [place] [address] Phone Care Team Providers Care Lumber Buyer Name Role Phone Jessica Smiley MD Primary Care Provider [phone] Encounters Date Type Department Care Team Description 03/08/2025 Lab Requisition [facility] - Main Lab [address] [facility] [employer] [place] [address] Jose Zimmerman PA Dysuria from Last 3 Months Social History Tobacco Use Types Packs/Day Years Used Date Smoking Tobacco: Never Assessed Comments Unknown Sex and Gender Information Value Date Recorded Sex Assigned at Not on file Legal Sex Female 12:31 AM EST Gender Identity Not on file Sexual Orientation Not on file Plan of Treatment Health Maintenance Due Date Last Done Comments Breast Cancer Screening 1955 Colorectal Cancer Screening: Colonoscopy 1954 DTaP,Tdap,and Td Vaccines (1 - Tdap) 1973 RSV Immunization Adult Patients (1 - Risk 50-74 years 1-dose series) 2004 Zoster Vaccines (1 of 2) 2004 Cholesterol Screening (Lipid Panel) 06/16/2023 Falls Risk Assessment 06/16/2023 Hepatitis C Screening 06/16/2023 Medicare Annual Wellness Visit 06/16/2023 Osteoporosis Screening (Bone Density Screening) 06/16/2023 Social Influencers of Health Screening 06/16/2023 Depression Screening 05/18/2024 Hypertension/CHF/CAD Annual BMP Blood Test 08/29/2024 COVID-19 Vaccine (2 - 2024-2 6 season) 2025 12/29/2020 Influenza Vaccine (#1) 2025 , 02/17/2022 Pneumococcal Vaccine: 50+ Years Completed 01/11/2024 [...] on patient's age to complete this topic Procedures Procedure Name Priority Date/Time Associated Diagnosis Comments BACTERIAL IDENTIFICATION AND SUSCEPTIBILITY, AEROBIC Routine 03/07/2025 10:00 AM EDT Dysuria from Last 3 Months Results * (ABNORMAL) Baterial identification and susceptibility, aerobic (03/07/2025 10:00 AM EDT) Culture, Bacterial ID and Sensitivity Streptococcus viridans group(A) 03/09/2025 10:58 AM EDT [facility] Comment: Susceptibility testing not routinely performed. If further therapeutic information is required, please consult an infectious disease specialist. The organism value for this result has been updated. These results have been appended to the previously preliminary verified report. Urine Urine specimen from urinary conduit / Unknown 03/07/2025 10:00 AM EDT 03/08/2025 1:20 PM EDT us Jose GARC[facility] MICROBIOLOGY - GENERAL ORDER [place] Final Result [facility] [address] [place] [address], [place] [phone] from Last 3 Months Insurance [employer] [employer] [place]ICA[place] - [place] Care Teams Lumber Buyer Relationship Specialty Start Date End Date Jessica Smiley MD [address] [facility] , [facility] [address] [facility] Physician Associ D/B/A: [facility] ALMAZ Dickens PCP - General Internal Medicine 03/08/25
--- OUTSIDE RECORDS SUMMARY | 2025-03-29 12:45 | XMS_ITS | Encounter Summary ---
Author Organization [facility] Address [address] [place] [address] Care Team Providers Care Pumper Hand Name Role Phone Jessica Smiley MD Primary Care Provider [phone] Encounter Details Date Type Department Care Team (Late st Contact Info) Description 03/25/2024 Lab Requisition [facility] - Main Lab [address] [place] [address] Maddie Campbell MD [address] [phone] Other abnormal findings in urine Social History [...] beta-hemolytic Group B(A) 03/27/2024 1:13 PM EST [facility] Comment: Susceptibility testing is not routinely [...] MICROBIOLOGY - G ENERAL ORDERABLES Final Result [facility] ([facility]) [facility] [address] [place] [address], documented in this encounter Visit Diagnoses Diagnosis Other abnormal findings in urine documented in this encounter Care Teams Pumper Hand Relationship Specialty Start Date End Date Jessica Smiley MD [address] [facility] , [address] Physician Associ D/B/A: [facility] [place] PCP - General Internal Medicine 03/08/25 documented as of this encounter
--- OUTSIDE RECORDS SUMMARY | 2025-03-29 12:45 | XMS_ITS | Encounter Summary ---
Author Organization [facility] Address [address] [place] [address] Care Team Providers Care Clinical Trial Specialist Name Role Phone Jessica Smiley MD Primary Care Provider [phone] Encounter Details Date Type Department Care Team (Late st Contact Info) Description 03/08/2025 Lab Requisition [facility] - Main Lab [address] [facility] [place] [address] Jose Zimmerman PA [address] [facility] [address] [place] [address] Dysuria Social History Tobacco Use Types Packs/Day Years [...] AEROBIC Routine 03/07/2025 10:00 AM EDT Dysuria documented in this encounter Results * (ABNORMAL) Baterial identification and susceptibility, aerobic (03/07/2025 10:00 AM EDT) Culture, Bacterial ID and Sensitivity Streptococcus viridans group(A) 03/09/2025 10:58 AM EDT [facility] LAB Comment: Susceptibility testing not routinely performed. [...] MICROBIOLOGY - GENERAL ORDER CLIFFORD Final Result [facility] [address] [place] [address], [place] [phone] documented in this encounter Visit Diagnoses Diagnosis Dysuria documented in this encounter Care Teams Clinical Trial Specialist Relationship Specialty Start Date End Date Jessica Smiley MD [address] [facility] [address] [facility] [place], [place] PCP - General Internal Medicine 03/08/25 documented as of this encounter
--- OUTSIDE RECORDS SUMMARY | 2025-03-29 12:45 | XMS_ITS | Patient Health Record ---
Author Organization [facility] Address [address] [place] [address] Care Team Providers Care Supervisor Audit Clerks Name Role Phone Beny Alegre MDneth Primary Care Provider Julio Leo [phone] Allergies Allergen (clinical drug ingredient) Drug/Non Drug [...] sig alcohol. She is originally from the [facility]. Problems Problem Type SNOMED Code ICD Code Onset Dates Problem Status W/U Status Risk Notes Problem Screening for malignant neoplasm of colon (725560083) Encounter for screening for malignant neoplasm of colon (Z12.11) Active confirmed Problem Pre-procedure evaluation check (737670810) Pre-procedural examination (Z01.818) Active confirmed Plan Of Treatment Pending Test Test Name Order Date GI BIOPSY 02/08/2018 Future Test Test Name Order Date COLONOSCOPY 11/11/2017 Insurance Providers Payer Name Payer Address Payer Phone Subscriber Number Group Number Insured Name Patient Relationship to Insured Coverage Start Date Coverage End Date [facility] [facility] [address] [address] [place], [place] [id number] SULEIMAN BRICE Self - patient is the insured Medical (General) History Medical History History ICD Code Denies [place],DM,CVA,renal disease Hypertension Hyperlipidemia Migraine headaches Asthma--prn inhaer Surgical History Surgery Date(Month/Year) Tubal ligation
== END 2025-03-29 10:37 | disposition home or self-care (01) ==
LOC: HO.LAB 10:36
PROVIDERS: PCP Internal Medicine; Visit Provider Internal Medicine
DX: I10 Essential (primary) hypertension (principal); E83.42 Hypomagnesemia; E78.5 Hyperlipidemia, unspecified; E53.8 Deficiency of other specified B group vitamins
CPT/HCPCS: 36415; 80053; 80061; 82306; 82607; 82746; 83735

== ENCOUNTER 2025-04-03 14:48 | Outpatient (AMB) | payer MEDICARE, MEDICAID, SELFPAY ==
[2025-04-03 15:11] VITALS: BP 130/62; PULSE 66; O2SAT 95; BMI 29.1
--- NOTE | 2025-04-03 15:11 | MHC.PC.OV ---
Vital Signs 04/03/25 15:11 Height 5 ft 4 in Weight 169 lb 8 oz BMI 29.1 BP 130/62 Blood Pressure Location Lt brachial Position Sitting Pulse 66 Pulse Source Pulse Oximeter Pulse Oximetry (%) 95 Oxygen Delivery Method Room Air Intake Visit Reasons: 4 months Edge Banding Off Bearer Required: No Accompanied by: Self / Same As Patient Allergies Iodinated Contrast Media Allergy (Intermediate, Verified 04/03/25 15:33) Hives ezetimibe (Zetia) Adverse Reaction (Intermediate, Verified 04/03/25 15:33) ? memory loss ? rosuvastatin (From Crestor) Adverse Reaction (Intermediate, Verified 04/03/25 15:33) Muscle cramps Lamisil Allergy (Mild, Uncoded 04/03/25 15:33) Rash Simvastatin Adverse Reaction (Intermediate, Uncoded 04/03/25 15:33) myalgias Medication List - Last Reconciled 04/03/25 by Jessica Smiley MD acetaminophen (Acetaminophen Extra Strength) 1,000 mg PO Q6H PRN albuterol sulfate 90 mcg/actuation 1 inh inhalation QID PRN amoxicillin-pot clavulanate 875-125 mg 1 tab PO Q12H atorvastatin (Lipitor) 10 mg PO BEDTIME 90 days benzonatate 200 mg PO BEDTIME PRN calcium carbonate 600 mg PO BID 90 days cetirizine 10 mg PO DAILY PRN 30 days cholecalciferol (vitamin D3) 50 mcg PO DAILY 90 days cyanocobalamin (vitamin B-12) ER 1,000 mcg PO .three times a week losartan 25 mg PO DAILY 90 days magnesium 250 mg PO DAILY trazodone 50 mg PO BEDTIME PRN 7 days umeclidinium-vilanterol 62.5-25 mcg/actuation (Anoro Ellipta) 1 inh inhalation DAILY 30 days Ventolin HFA 90 mcg/actuation (albuterol sulfate) 2 puffs inhalation Q6H PRN 30 days NS vitamin E (dl, acetate) 45 mg PO DAILY Tobacco use date assessed: 04/03/25 Fall risk assessment: No Falls in past year Last assessed Fall Risk: 04/03/25 Dental Screening Dental Screen Date: 04/03/25 Did you have a dental visit in the last 12 months?: Yes Did you have a dental problem in the last 6 months where you did not have access to dental care?: No Was dental information given to patient?: Patient has dentist HPI HPI Comments History of Present Illness Details The patient is a 69-year-old female presenting for management of multiple chronic conditions. She has a history of allergies or adverse reactions to contrast dye, celiac, Crestor (cramps), Lamisil (rash), and simvastatin (myalgia). She has a history of hyperlipidemia and stopped taking atorvastatin 10 mg, although she recently started taking it again intermittently. Her recent total cholesterol was 240 mg/dL with an HDL of 50 mg/dL. Her last blood sugar reading was 117 mg/dL, consistent with prediabetes. The patient has chronic kidney disease and is followed by a mineral economist. She takes losartan 25 mg for her kidneys and blood pressure. She reports a history of asthma, for which she uses an inhaler daily, and reports her symptoms are better. Additionally, she reports recurrent vaginal yeast infections with itching, which have persisted despite treatment with both oral pills and creams. She is not currently taking trazodone for sleep. [facility] Medical History (Updated 04/03/25 @ 19:04 by Jessica Smiley MD) Personal history of COVID-19 (10/21/23) Seasonal allergies Asthma PMB (postmenopausal bleeding) Uterine prolapse Hyperparathyroidism Productive cough URI (upper respiratory infection) Polyuria B12 deficiency Hypovitaminosis D Proteinuria Hypertriglyceridemia Impaired glucose tolerance Surgical History Hx of colonoscopy Hx of tubal ligation (1989) Family History Father Arthritis Mother No problems noted. Social History Household Members: Spouse Housing: House Are you a primary critical care unit manager to a significant other at home: No Do you presently have visiting nurse or other home services: No Alcohol intake: never Comment: aware of trip hazard Patient Tobacco Use Status: Never used Tobacco e-Cigarette/Vaping Use: Never Used Second Hand Smoke Exposure: No service: No Current occupational status: unemployed Cognitive needs: No Hearing needs: No Vision needs: Yes Female Reproductive History Menstrual Age of Menarche: 12 Questionnaire PHQ-9 Over the last 2 weeks, how often have you been bothered by any of the following problems? 1. Little interest or pleasure in doing things: several days 2. Feeling down, depressed, or hopeless: several days 3. Trouble falling or staying asleep, or sleeping too much: not at all 4. Feeling tired or having little energy: not at all 5. Poor appetite or overeating: not at all 6. Feeling bad about yourself - or that you are a failure or have let yourself or your family down: several days 7. Trouble concentrating on things, such as reading the newspaper or watching television: not at all 8. Moving or speaking so slowly that other people could have noticed. Or the opposite - being so fidgety or restless that you have been moving around a lot more than usual: not at all 9. Thoughts that you would be better off or of hurting yourself in some way: several days Total score: 4 Depression Screening Interpretation: Positive Depression Screening Follow-up: Existing condition and Follow-up Visit Requested Depression Screening Done: Yes 88397 - PHQ-9 Billing: Yes Source: Developed by Drs. Juloi Álvarez, Fernanda Lugo, Patrick Fontana and colleagues, with an educational saul from [employer]. Thrive Questionnaire Date Thrive assessed: 04/03/25 I am a: Patient What is your living situation today?: I have a steady place to live Within the past 12 months, did the food you bought not last and you didn't have the money to get more?: Often true Within the past 12 months, did you worry whether your food would run out before you got money to buy more?: Often true Do you have trouble paying for medicines?: No Do you have trouble getting transportation to medical appointments?: No Do you have trouble paying your heating and electricity bill?: Yes Do you have trouble taking care of your child, family member or friend?: Yes Do you have trouble with day-to-day activities such as bathing, preparing meals, shopping, managing finances, etc.?: Yes Are you currently unemployed and looking for a job?: No Are you interested in more education?: No Please select the resources that you would like help with: Food Currently or been in a relationship where the following occur: No concerns reported THRIVE Score: 3 AUDIT C Alcohol Use Questionnaire (AUDIT-C) 1. How often do you have a drink containing alcohol?: Never 3. How often do you have six or more drinks on one occasion?: Never Total Score: 0 Score Reviewed/Action Taken: No CLARY-7 AMB Questionnaire CLARY-7 Date CLARY - 7 assessed: 04/03/25 Feeling nervous, anxious, or on edge: 0 = Not at all Not being able to stop or control worryin = Not at all Worrying too much about different things: 0 = Not at all Trouble relaxin = Not at all Being so restless that it is hard to sit still: 0 = Not at all Becoming easily annoyed or irritable: 0 = Not at all Feeling afraid as if something awful might happen: 0 = Not at all Total CLARY-7 score (0-4 normal; 5-9 mild; 10-14 moderate; 15-21 severe): 0 Source: Developed by Drs. Julio Álvarez, Fernanda Lugo, Patrick Fontana and colleagues, with an educational saul from [employer]. CLARY-7 Assessment Billing CLARY-7 Assessment Tool: CLARY-7 Assessment 81744 Review of Systems Const All systems reviewed & are unremarkable except as noted in HPI and below Card Denies chest pain at rest, Denies chest pain with activity, Denies edema, Denies irregular heart rhythm, Denies claudication, Denies dyspnea, Denies dyspnea on exertion, Denies orthopnea, Denies paroxysmal nocturnal dyspnea and Denies slow heart rate Resp Denies cough, Denies dyspnea and Denies dyspnea on exertion Musc Denies atrophy, Denies deformity and Denies limited range of motion Skin/Breast Denies bleeding lesions, Denies changing lesions and Denies rash Physical exam (Primary Care) Vital Signs: Last Vital Signs Pulse 66 04/03/25 15:11 BP 130/62 04/03/25 15:11 Pulse Ox 95 04/03/25 15:11 Oxygen Delivery Method Room Air 04/03/25 15:11 BMI result Body Mass Index 29.1 Tobacco/Smoking Status: Tobacco use Status Tobacco use date assessed 04/03/25 04/03/25 15:14 Patient Tobacco Use Status Never used Tobacco 04/03/25 15:14 Tobacco use type 02/16/24 14:41 e-Cigarette/Vaping Use Never Used 04/03/25 15:14 PHQ-9: PHQ-9 Score PHQ-9: Total score 4 04/03/25 15:35 Depression Screening Interpretation: Positive Depression Screening Follow-up: Existing condition and Follow-up Visit Requested Thrive Assessment: Date of Thrive Assessment Date Thrive assessed 04/03/25 04/03/25 15:14 Currently or been in a relationship where the following occur: No concerns reported Resp Effort & Inspection: normal respiratory effort Auscultation: clear to auscultation bilaterally Cardio Jugular venous distension: no JVD Rate: regular rate Rhythm: regular rhythm Heart sounds: S1 normal heart sound present and S2 normal heart sound present Extrem General: Yes full ROM Coding Level of Care Code Est Pt Level 4 (06824) Complex EM visit Add On G2211 Diagnoses Essential hypertension I10 Dyslipidemia E78.5 Impaired glucose tolerance R73.02 Asthma J45.909 CKD (chronic kidney disease) stage 2, GFR 60-89 ml/min N18.2 Vaginal pruritus N89.8 Additional Codes CLARY-7 Assessment Billing - CLARY-7 Assessment Tool: CLARY-7 Assessment 75410 ([id number]) PHQ-9 - 37027 - PHQ-9 Billing: Yes ([id number]) Time Spent (min) 21 Assessment & Plan Assessment & Plan (1) Essential hypertension: Code(s): I10 - Essential (primary) hypertension Category: Medical (2) Dyslipidemia: Code(s): E78.5 - Hyperlipidemia, unspecified Category: Medical (3) Impaired glucose tolerance: Code(s): R73.02 - Impaired glucose tolerance (oral) Category: Medical (4) Asthma: Code(s): J45.909 - Unspecified asthma, uncomplicated Category: Medical (5) CKD (chronic kidney disease) stage 2, GFR 60-89 ml/min: Code(s): N18.2 - Chronic kidney disease, stage 2 (mild) Category: Medical (6) Vaginal pruritus: Code(s): N89.8 - Other specified noninflammatory disorders of vagina Category: Medical Plan Plan 1. Hyperlipidemia The patient's 10-year risk of heart attack or stroke was calculated to be 7.5%, which is above the 6% threshold for initiating medication. Given her history of intolerance to other statins, the plan is to start rosuvastatin at the lowest dose of 5 mg. Dietary recommendations include eating oatmeal daily to help lower cholesterol. 2. Prediabetes The patient's blood sugar of 117 mg/dL places her in the prediabetic range. No medication will be prescribed at this time. The patient was counseled to be mindful of fruit intake due to its sugar content. 3. Recurrent Vulvovaginal Candidiasis The patient reports persistent vaginal yeast infections despite previous treatments with pills and creams. An antifungal cream will be prescribed, and a referral will be made to an HONING MACHINE SET UP OPERATOR TOOL for further evaluation to rule out other underlying causes. 4. Asthma The patient's Relvar Ellipta inhaler is expensive, and a cheaper, similar generic version will be prescribed. A referral to a basket hand weaver will also be placed for specialized management. 5. Essential Hypertension The patient's blood pressure is well-controlled on losartan 25 mg. She will continue her current regimen. Orders: Orders Lipid Panel 6 Months E78.5 - Hyperlipidemia, unspecified Comprehensive [place]. Panel Fast 6 Months R73.02 - Impaired glucose tolerance (oral) Referrals Pulmonology Referral J45.909 - Unspecified asthma, uncomplicated HONING MACHINE SET UP OPERATOR TOOL Referral N89.8 - Other specified noninflammatory disorders of vagina Medications: New clotrimazole 1% 1 appl topical BID 15 grams 0RF 4 weeks fluticasone propion-salmeterol 113-14 mcg/actuation 1 inh inhalation BID 1 ea 6RF 30 days J45.909 - Unspecified asthma, uncomplicated rosuvastatin 5 mg PO BEDTIME 90 tabs 1RF 90 days Discontinued atorvastatin (Lipitor) Discontinued Reason: Patient Completed Course 10 mg PO BEDTIME 90 days 90 tabs 1RF trazodone Discontinued Reason: Patient Completed Course 50 mg PO BEDTIME 7 days PRN 7 tabs 1RF sleep
--- OUTSIDE RECORDS SUMMARY | 2025-04-04 05:03 | XMS_ITS | Clinical Summary ---
Author Organization [facility] Address [address] [place] [phone] Phone Care Team Providers Care Range Aid Name Role Phone Jessica Stanton MD Primary Care Provider Allergies Active Allergy Reactions Criticality Noted Date [...] OR WHEEZING FOR 30 DAYS 2 Active Cholecalcifero l (Vitamin D3) 50 MCG (1999 UT) tabletIndicati ons:Vitamin D deficiency, not otherwise specified Take 2,000 Units by mouth 1 (one) time each day 30 tablet 11 5 026 Active losartan (COZAAR) 25 MG tablet Take 25 mg by mouth 1 (one) time each day 5 Active Cholecalcifero l (Vitamin D3) 50 MCG (1999 UT) tabletIndicati ons:Vitamin D deficiency, not otherwise specified Take 2,000 Units by mouth 1 (one) time each day 30 tablet 11 4 025 lisinopril 10 MG tabletIndicati ons:Hypertensi on Take 1 tablet (10 mg total) by mouth 1 (one) time each day 90 tablet 3 5 025 Discontinued (Discontinue d by another clinician (does not appear on AVS)) Active Problems Problem Noted Date Diagnosed Date Chronic kidney disease, stage 2 (mild) Incomplete uterine prolapse 07/22/2021 Asthma 07/22/2021 Cobalamin deficiency 07/22/2021 Disorder of rectum 07/22/2021 Hypertriglyceridemia 07/22/2021 Impaired glucose tolerance 07/22/2021 Language spoken - finding 07/22/2021 Midline cystocele 07/22/2021 Mixed urinary incontinence 07/22/2021 Osteoporosis 07/22/2021 Postmenopausal bleeding 07/22/2021 Vitamin D deficiency 07/22/2021 Hypertension 07/24/2020 Blood in urine 07/24/2020 Proteinuria 07/24/2020 Encounters Date Type Department Care Team Description 03/27/2025 1:30 PM EST Office Visit [facility] [address] [address] Morena Pimentel ARNP Chronic kidney disease, stage 2 (mild) (Primary Dx); Hypertension; Vitamin D deficiency, not otherwise specified 03/21/2025 Orders Only [facility] [address] [address] Morena Pimentel ARNP Vitamin D deficiency, not otherwise specified (Primary Dx) 03/20/2025 Documentation Only [facility] [address] [address] Kristal Crawford MA from Last 3 Months [...] Sign Reading Time Taken Comments Blood Pressure 110/60 03/27/2025 1:21 PM EST Pulse 61 03/27/2025 1:21 PM EST Temperature - - Respiratory Rate 98 03/27/2025 1:21 PM EST Oxygen Saturation 98% 07/22/2021 1:49 PM EST Inhaled Oxygen Concentration - - Weight 77.1 kg (170 lb) 03/27/2025 1:21 PM EST Height 167.6 cm (5' 6 ) 07/24/2020 3:06 PM EST Body Mass Index 27.44 07/24/2020 3:06 PM EST Plan of Treatment Upcoming Encounters Date Type Department Care Team (Late st Contact Info) Description 03/27/2026 11:00 AM EST Office Visit [facility] [address] [address] Morena Pimentel ARNP [address] [address] Health Maintenance Due Date Last [...] Procedure Name Priority Date/Time Associated Diagnosis Comments VITAMIN D 25 HYDROXY Routine 03/20/2025 2:43 PM EST Chronic kidney disease, stage 2 (mild) Hypertension Vitamin D deficiency, not otherwise specified PTH, INTACT Routine 03/20/2025 2:43 PM EST Chronic kidney disease, stage 2 (mild) Hypertension Vitamin D deficiency, not otherwise specified URINE ALBUMIN / CREATININE RATIO Routine 03/20/2025 2:43 PM EST Chronic kidney disease, stage 2 (mild) Hypertension Vitamin D deficiency, not otherwise specified PROTEIN / CREATININE RATIO, URINE Routine 03/20/2025 2:43 PM EST Chronic kidney disease, stage 2 (mild) Hypertension Vitamin D deficiency, not otherwise specified CBC AND DIFFERENTIAL Routine 03/20/2025 2:43 PM EST Chronic kidney disease, stage 2 (mild) Hypertension Vitamin D deficiency, not otherwise specified RENAL FUNCTION PANEL Routine 03/20/2025 2:43 PM EST Chronic kidney disease, stage 2 (mild) Hypertension Vitamin D deficiency, not otherwise specified from Last 3 Months Results * (ABNORMAL) Urine Protein / creatinine ratio (03/20/2025 2:43 PM EST) Creatinine, Ur 70.0 Not Estab. mg/dL [facility] Protein, Ur 21.8 Not Estab. mg/dL [facility] Urine Protein/Creati nine Ratio 311(H) 0 - 200 mg/g creat [facility] Urine Urine specimen obtained by clean catch procedure / Unknown 03/20/2025 2:43 PM EST 03/20/2025 [employer] [facility] URINE ORDERABLES Final Result Performing Organization Address City/[facility]/ZIP Co de Phone Number [employer] [facility] [address] [place] [phone] * (ABNORMAL) Urine Albumin / Creatinine Ratio (03/20/2025 2:43 PM EST) Albumin, Urine 91.5 Not Estab. ug/mL [facility] Albumin/Creatin ine Ratio 131(H) 0 - 29 mg/g creat [facility] Comment: Normal: 0 - 29 Moderately increased: 30 - 300 Severely increased: >300 Urine Urine specimen obtained by clean catch procedure / Unknown 03/20/2025 2:43 PM EST 03/20/2025 [employer] [facility] URINE ORDERABLES Final Result [facility] [address] [place] [address] * (ABNORMAL) Vitamin D 25 hydroxy (03/20/2025 2:43 PM EST) Vitamin D, 25-OH, Total 25.2(L) 30.0 - 100.0 ng/mL [facility] Comment: Vitamin D deficiency has been defined by the Bud of Medicine and an Endocrine Society practice guideline as a level of serum 25-OH vitamin D less than 20 ng/mL (1,2). The Endocrine Society went on to further define vitamin D insufficiency as a level between 21 and 29 ng/mL (2). 1. IOM (Bud of Medicine). 2010. Dietary reference intakes for calcium and D. [place]: The National Academies Press. 2. Silverio MF, Carmen BALL, Art CASTILLO, et al. Evaluation, treatment, and prevention of vitamin D deficiency: an Endocrine Society clinical practice guideline. JCEM. 2010; 96(7):1911-30. Blood Venous blood / Unknown 03/20/2025 2:43 PM EST 03/20/2025 Morena Pimentel [facility] BLOOD ORDERABLES Final Result [facility] [address] [place] [address] * CBC and differential (03/20/2025 2:43 PM EST) WBC 6.8 3.4 - 10.8 x10E3/uL [facility] RBC 4.55 3.77 - 5.28 x10E6/uL [facility] Hemoglobin 12.8 11.1 - 15.9 g/dL [facility] Hematocrit 40.4 34.0 - 46.6 % [facility] MCV 89 79 - 97 fL [facility] MCH 28.1 26.6 - 33.0 pg [facility] MCHC 31.7 31.5 - 35.7 g/dL [facility] RDW 13.9 11.7 - 15.4 % [facility] Platelets 235 150 - 450 x10E3/uL [facility] Neutrophils Relative 56 Not Estab. % [facility] Lymphocytes Relative 31 Not Estab. % [facility] Monocytes 7 Not Estab. % [facility] Eosinophils Relative 4 Not Estab. % [facility] Basophils Relative 2 Not Estab. % [facility] Neutrophils Absolute 3.9 1.4 - 7.0 x10E3/uL [facility] Lymphocytes Absolute 2.1 0.7 - 3.1 x10E3/uL [facility] Monocytes Absolute 0.5 0.1 - 0.9 x10E3/uL [facility] Eosinophils Absolute 0.3 0.0 - 0.4 x10E3/uL [facility] Basophils Absolute 0.1 0.0 - 0.2 x10E3/uL [facility] Immature Granulocytes 0 Not Estab. % [facility] Immature Grans (Absolute) 0.0 0.0 - 0.1 x10E3/uL [facility] Blood Venous blood / Unknown 03/20/2025 2:43 PM EST 03/20/2025 us Morena TALLEY LAB BLOOD ORDERABLES Final Result [facility] [address] [place] [address] * PTH, intact (03/20/2025 2:43 PM EST) PTH 28 15 - 65 pg/mL [facility] Blood Venous blood / Unknown 03/20/2025 2:43 PM EST 03/20/2025 Morena Pimentel [facility] BLOOD ORDERABLES Final Result [facility] [address] [place] [address] * Renal function panel (03/20/2025 2:43 PM EST) Glucose 83 70 - 99 mg/dL [facility] BUN 22 8 - 27 mg/dL [facility] Creatinine 0.80 0.57 - 1.00 mg/dL [facility] eGFR CKD-EPI CR 2020 79 >59 mL/min/1.7 3 [facility] BUN/Creatinine Ratio 28 12 - 28 [facility] Sodium 140 134 - 144 mmol/L [facility] Potassium 4.6 3.5 - 5.2 mmol/L [facility] Chloride 104 96 - 106 mmol/L [facility] Bicarbonate (CO2) 22 20 - 29 mmol/L [facility] Calcium 9.9 8.7 - 10.3 mg/dL [facility] Albumin 4.3 3.9 - 4.9 g/dL [facility] Phosphorus 3.3 3.0 - 4.3 mg/dL [facility] Blood Venous blood / Unknown 03/20/2025 2:43 PM EST 03/20/2025 Morena Pimentel [employer]ACK[employer] SEALER [employer] LAB BLOOD ORDERABLES Final Result [facility] [address] [place] [address] from Last 3 Months Insurance [facility] Medicaid [place] Care Teams Range Aid Relationship Specialty Start Date End Date Jessica Stanton MD [address] [place] [address] PCP - General Internal Medicine 07/24/20
--- OUTSIDE RECORDS SUMMARY | 2025-04-04 05:03 | XMS_ITS | Encounter Summary ---
Author Organization [facility] Address [address] [place] [address] Care Team Providers Care Textile Converter Name Role Phone Jessica Smiley MD Primary Care Provider [phone] Encounter Details Date Type Department Care Team (Late st Contact Info) Description 03/25/2024 Lab Requisition [facility] - Main Lab [address] [place] [address] Maddie Campbell MD [address] [phone] Other abnormal findings in urine Social History [...] beta-hemolytic Group B(A) 03/27/2024 1:13 PM EST [facility] ([facility] Comment: Susceptibility testing is not [...] MICROBIOLOGY - G ENERAL ORDERABLES Final Result [facility] ([facility]) [facility] [address] [place] [address], documented in this encounter Visit Diagnoses Diagnosis Other abnormal findings in urine documented in this encounter Care Teams Textile Converter Relationship Specialty Start Date End Date Jessica Smiley MD 2 [facility] , [address] Physician Associ D/B/A: [facility] [place] PCP - General Internal Medicine 03/08/25 documented as of this encounter
--- OUTSIDE RECORDS SUMMARY | 2025-04-04 05:04 | XMS_ITS | Clinical Summary ---
Author Organization 299 [facility] Address [address] [place] [address] Phone Care Team Providers Care Tavern Operator Name Role Phone Jessica Smiley MD Primary Care Provider [phone] Encounters Date Type Department Care Team Description 03/08/2025 Lab Requisition [facility] - Main Lab 299 [facility] [place] [address] Jose Zimmerman PA Dysuria from [...] Streptococcus viridans group(A) 03/09/2025 10:58 AM EDT [facility] Comment: Susceptibility testing not routinely [...] MICROBIOLOGY - GENERAL ORDER CLIFFORD Final Result [facility] [address] [place] [address], [place] [phone] from Last 3 Months Insurance [employer] [place] [employer] [place] Care Teams Tavern Operator Relationship Specialty Start Date End Date Jessica Smiley MD 2 [facility] , [facility] [address] [facility] Physician Associ D/B/A: [facility] [place] Dickens PCP - General Internal Medicine 03/08/25
--- OUTSIDE RECORDS SUMMARY | 2025-04-04 05:04 | XMS_ITS | Encounter Summary ---
Author Organization [facility] Address [address] [place] [address] Care Team Providers Care Endo Tech Name Role Phone Jessica Smiley MD Primary Care Provider [phone] Encounter Details Date Type Department Care Team (Late st Contact Info) Description 03/08/[address] [facility] - Main Lab 299 [facility] [place] [address] Jose Zimmerman PA [address] [facility] [address] [place] [address] Dysuria Social History Tobacco Use Types Packs/Day [...] Streptococcus viridans group(A) 03/09/2025 10:58 AM EDT [facility] ([facility]) HOSPITAL LAB Comment: Susceptibility testing not routinely [...] - GENERAL ORDER CLIFFORD Final Result [facility] ([facility]) [facility] [address] [place] [address], [place] [phone] documented in this encounter Visit Diagnoses Diagnosis Dysuria documented in this encounter Care Teams Endo Tech Relationship Specialty Start Date End Date Jessica Smiley MD 2 [facility] [address] [facility] Physician Associ D/B/A: [facility] [place], [place] PCP - General Internal Medicine 03/08/25 documented as of this encounter
== END 2025-04-03 15:57 | disposition home or self-care (01) ==
LOC: HO.HMCH 14:49
PROVIDERS: PCP Internal Medicine; Visit Provider Internal Medicine
DX: I12.9 Hypertensive chronic kidney disease with stage 1 through stage 4 chronic kidney disease, or unspecified chronic kidney disease (principal); E78.5 Hyperlipidemia, unspecified; R73.02 Impaired glucose tolerance (oral); J45.909 Unspecified asthma, uncomplicated; N18.2 Chronic kidney disease, stage 2 (mild); N89.8 Other specified noninflammatory disorders of vagina

== ENCOUNTER → 2025-04-03 14:48 | Outpatient (BNVA) | payer MEDICARE, MEDICAID, SELFPAY | PROVIDERS: PCP Internal Medicine; Visit Provider Internal Medicine | DX: I12.9 Hypertensive chronic kidney disease with stage 1 through stage 4 chronic kidney disease, or unspecified chronic kidney disease (principal); E78.5 Hyperlipidemia, unspecified; R73.02 Impaired glucose tolerance (oral); J45.909 Unspecified asthma, uncomplicated; N18.2 Chronic kidney disease, stage 2 (mild); N89.8 Other specified noninflammatory disorders of vagina; Z79.899 Other long term (current) drug therapy | CPT/HCPCS: 96127; 99212 ==

== ENCOUNTER 2025-04-11 14:33 | Outpatient (REF) | payer MEDICARE, MEDICAID, SELFPAY ==
--- OUTSIDE RECORDS SUMMARY | 2025-04-11 18:51 | XMS_ITS | Clinical Summary ---
Author Organization [facility] Address [address] [place] [phone] Phone Care Team Providers Care Weathercaster Name Role Phone Jessica Stanton MD Primary Care Provider [phone] Allergies Active Allergy Reactions Criticality Noted Date [...] Office Visit [facility] [address] [address] Morena Pimentel ARNP Chronic kidney disease, stage 2 (mild) (Primary Dx); Hypertension; Vitamin D deficiency, not otherwise specified 03/21/2025 Orders Only [facility] [address] [address] Morena Pimentel ARNP Vitamin D deficiency, not otherwise specified (Primary Dx) 03/20/2025 Documentation Only [facility] [address] [address] Kristal Crawford [place] from Last 3 Months [...] Office Visit [facility] [address]. [address] [address] Morena Pimentel ARNP [address] [address] Health Maintenance Due Date Last [...] Creatinine, Ur 70.0 Not Estab. mg/dL [facility] Protein, Ur 21.8 Not Estab. mg/dL [facility] Urine Protein/Creati nine Ratio 311(H) 0 - 200 mg/g creat [facility] Urine Urine specimen obtained by clean catch procedure / Unknown 03/20/2025 2:43 PM EST 03/20/2025 [employer] [facility] URINE ORDERABLES Final Result Performing Organization Address City/[facility]/ZIP Co de Phone Number RouterShare [facility] [address] [place] [phone] * (ABNORMAL) Urine Albumin / Creatinine Ratio (03/20/2025 2:43 PM EST) Albumin, Urine 91.5 Not Estab. ug/mL [facility] Albumin/Creatin ine Ratio 131(H) 0 - 29 mg/g creat [facility] Comment: Normal: 0 - 29 Moderately increased: 30 - 300 Severely increased: >300 Urine Urine specimen obtained by clean catch procedure / Unknown 03/20/2025 2:43 PM EST 03/20/2025 [employer] [facility] URINE ORDERABLES Final Result [facility] [address] [place] [address] * (ABNORMAL) Vitamin D 25 hydroxy (03/20/2025 2:43 PM EST) Vitamin D, 25-OH, Total 25.2(L) 30.0 - 100.0 ng/mL [facility] Comment: Vitamin D deficiency has been defined by the [place] of Medicine and an Endocrine Society practice guideline as a level of serum 25-OH vitamin D less than 20 ng/mL (1,2). The Endocrine Society went on to further define vitamin D insufficiency as a level between 21 and 29 ng/mL (2). 1. IOM ([place] of Medicine). 2010. Dietary reference intakes for calcium and D. [place]: The National Academies Press. 2. Silverio MF, Carmen BALL, Art CASTILLO, et al. Evaluation, treatment, and prevention of vitamin D deficiency: an Endocrine Society clinical practice guideline. JCEM. 2010; 96(7):1911-30. Blood Venous blood / Unknown 03/20/2025 2:43 PM EST 03/20/2025 Morena Pimentel [facility] BLOOD ORDERABLES Final Result [facility] [address] [place] [address] * CBC and differential (03/20/2025 2:43 PM EST) WBC 6.8 3.4 - 10.8 x10E3/uL [facility] RBC 4.55 3.77 - 5.28 x10E6/uL [facility] Hemoglobin 12.8 11.1 - 15.9 g/dL [facility] Hematocrit 40.4 34.0 - 46.6 % [facility] MCV 89 79 - 97 fL [facility] MCH 28.1 26.6 - 33.0 pg [facility] MCHC 31.7 31.5 - 35.7 g/dL [facility] RDW 13.9 11.7 - 15.4 % [facility] Platelets 235 150 - 450 x10E3/uL [facility] Neutrophils Relative 56 Not Estab. % [facility] Lymphocytes Relative 31 Not Estab. % [facility] Monocytes 7 Not Estab. % [facility] Eosinophils Relative 4 Not Estab. % [facility] Basophils Relative 2 Not Estab. % [facility] Neutrophils Absolute 3.9 1.4 - 7.0 x10E3/uL [facility] Lymphocytes Absolute 2.1 0.7 - 3.1 x10E3/uL [facility] Monocytes Absolute 0.5 0.1 - 0.9 x10E3/uL [facility] Eosinophils Absolute 0.3 0.0 - 0.4 x10E3/uL [facility] Basophils Absolute 0.1 0.0 - 0.2 x10E3/uL [facility] Immature Granulocytes 0 Not Estab. % [facility] Immature Grans (Absolute) 0.0 0.0 - 0.1 x10E3/uL [facility] Blood Venous blood / Unknown 03/20/2025 2:43 PM EST 03/20/2025 us Morena [facility]LEY LAB BLOOD ORDERABLES Final Result [facility] [address] [place] [address] * PTH, intact (03/20/2025 2:43 PM EST) PTH 28 15 - 65 pg/mL [facility] Blood Venous blood / Unknown 03/20/2025 2:43 PM EST 03/20/2025 Morena Pimentel [facility] BLOOD ORDERABLES Final Result [facility] [address] [place] [address] * Renal function panel (03/20/2025 2:43 PM EST) Glucose 83 70 - 99 mg/dL [facility] BUN 22 8 - 27 mg/dL [facility] Creatinine 0.80 0.57 - 1.00 mg/dL [facility] eGFR CKD-EPI CR 2020 79 >59 mL/min/1.7 3 [facility] BUN/Creatinine Ratio 28 12 - 28 [facility] Sodium 140 134 - 144 mmol/L [facility] Potassium 4.6 3.5 - 5.2 mmol/L [facility] Chloride 104 96 - 106 mmol/L [facility] Bicarbonate (CO2) 22 20 - 29 mmol/L [facility] Calcium 9.9 8.7 - 10.3 mg/dL [facility] Albumin 4.3 3.9 - 4.9 g/dL [facility] Phosphorus 3.3 3.0 - 4.3 mg/dL [facility] Blood Venous blood / Unknown 03/20/2025 2:43 PM EST 03/20/2025 Morena Pimentel CELL ROOM SUPERVISOR LAB BLOOD ORDERABLES Final Result [facility] [address] [place] [address] from Last 3 Months Insurance [facility] Medicaid [place] Care Teams Weathercaster Relationship Specialty Start Date End Date Jessica Stanton MD [address] [address] [place] [address] PCP - General Internal Medicine 07/24/20
[2025-04-12 00:12] LABS: Bacterial Vaginosis PCR NEGATIVE (Negative); Candida Group PCR NOT DETECTED (Not Detect); Candida glab krusei PCR NOT DETECTED (Not Detect); Trichomonas vaginalis PCR NOT DETECTED (Not Detect)
== END 2025-04-11 14:34 | disposition home or self-care (01) ==
LOC: HO.LAB 14:33
PROVIDERS: PCP Internal Medicine; Visit Provider Advanced Practice Midwife
DX: N90.89 Other specified noninflammatory disorders of vulva and perineum (principal); N89.8 Other specified noninflammatory disorders of vagina; Z20.2 Contact with and (suspected) exposure to infections with a predominantly sexual mode of transmission; Z98.51 Tubal ligation status
CPT/HCPCS: 81515; 99212

== ENCOUNTER 2025-04-11 14:33 | Outpatient (AMB) | payer MEDICARE, MEDICAID, SELFPAY ==
--- NOTE | 2025-04-11 14:37 | MHC.OFFVIS ---
Vital Signs 04/11/25 14:38 Height 5 ft 4 in Weight 169 lb BMI 29.0 Intake Visit Reasons: Recurrent vaginitis Intake Note: recurrent yeast infection since spring Sports Nutritionist: Sports Nutritionist Present (Sallie) Allergies Iodinated Contrast Media Allergy (Intermediate, Verified 04/11/25 14:38) Hives ezetimibe (Zetia) Adverse Reaction (Intermediate, Verified 04/11/25 14:38) ? memory loss ? rosuvastatin (From Crestor) Adverse Reaction (Intermediate, Verified 04/11/25 14:38) Muscle cramps Lamisil Allergy (Mild, Uncoded 04/03/25 15:33) Rash Simvastatin Adverse Reaction (Intermediate, Uncoded 04/03/25 15:33) myalgias HPI Comments Details: Vulvar irritations with burning, itching and occasional odor since earlier this year. History of antibiotics in December, and prior UTI treated this year. Newly diagnoised DM. Currently on UriCalm and reports no symptoms. History of uterine prolapse was advised to have a hysterectomy, was ambivalent due to watching her grandchildren 2 times a week. [facility] Medical History Personal history of COVID-19 (10/21/23) Seasonal allergies Asthma PMB (postmenopausal bleeding) Uterine prolapse Hyperparathyroidism Productive cough URI (upper respiratory infection) Polyuria B12 deficiency Hypovitaminosis D Proteinuria Hypertriglyceridemia Impaired glucose tolerance Surgical History Hx of colonoscopy Hx of tubal ligation (1989) Family History Father Arthritis Mother No problems noted. Social History Household Members: Spouse Housing: House Are you a primary foster care social worker to a significant other at home: No Do you presently have visiting nurse or other home services: No Alcohol intake: never Comment: aware of trip hazard Patient Tobacco Use Status: Never used Tobacco e-Cigarette/Vaping Use: Never Used Second Hand Smoke Exposure: No service: No Current occupational status: unemployed Cognitive needs: No Hearing needs: No Vision needs: Yes Female Reproductive History Menstrual Age of Menarche: 12 Review of Systems Const All systems reviewed & are unremarkable except as noted in HPI and below Physical Exam Vital Signs: BMI result Body Mass Index 29.0 Const General: cooperative, healthy appearing and no acute distress Orientation/consciousness: patient oriented x3 GI Inspection: Yes normal to inspection Palpation (GI): Soft to palpation and Other GI palpation findings present (Nontender) Rectal Exam - Female: visual inspection normal General: Yes bladder normal to palpation External Female Exam: normal appearance of the urethra and erythema (Bilateral labial) Speculum Exam - Vagina: normal appearance of the vagina, normal palpation and normal vaginal discharge Speculum Exam - Cervix: normal appearance of the cervix and normal palpation Bimanual exam- vagina & uterus: normal bimanual exam, normal palpation, uterine size normal, bladder normal to palpation, normal palpation, uterine shape normal, non-tender and other (Prolapse) Bimanual Exam- Adnexa, other: normal adnexae Neuro General: patient oriented x3 Assessment & Plan Assessment & Plan (1) Vulvar irritation: Code(s): N90.89 - Other specified noninflammatory disorders of vulva and perineum Plan BV panel obtained await results for final plan of care. Discussed her referral to uro Gyne due to prolapse, recommended following up with decision making due to her symptoms with their department, it is not scheduled through our department as the patient thought to follow up here. Advised to call in PRN if she has any concerns. Follow up for annual exam as scheduled. The patient expressed understanding and agreement with the plan of care. All of her questions and concerns were addressed to the best of my ability. This note is constructed using voice recognition software. While every effort has been made to ensure accuracy, wildlife management professor errors may have been included. Orders: Orders Bacterial Vaginosis Panel Today N89.8 - Other specified noninflammatory disorders of vagina Coding Level of Care Code Est Pt Level 3 (75697) Diagnoses Vulvar irritation N90.89
[2025-04-11 14:38] VITALS: BMI 29.0
--- OUTSIDE RECORDS SUMMARY | 2025-04-11 18:26 | XMS_ITS | Encounter Summary ---
Author Organization [facility] Address [address] [place] [address] Care Team Providers Care Linux System Administrator Name Role Phone Jessica Smiley MD Primary Care Provider [phone] Encounter Details Date Type Department Care Team (Late st Contact Info) Description 03/08/2025 Lab Requisition [facility] - Main Lab [address] [facility] [place] [address] Jose Zimmerman PA [address] [facility] [address] [place] [address] Dysuria Social History Tobacco Use Types Packs/Day [...] Streptococcus viridans group(A) 03/09/2025 10:58 AM EDT [facility] HOSPITAL LAB Comment: Susceptibility testing not [...] - GENERAL ORDER CLIFFORD Final Result [facility] [address] [place] [address], [place] [phone] documented in this encounter Visit Diagnoses Diagnosis Dysuria documented in this encounter Care Teams Linux System Administrator Relationship Specialty Start Date End Date Jessica Smiley MD 2 [facility] [address], [address] [facility] Physician Associ D/B/A: [facility] [place], [place] PCP - General Internal Medicine 03/08/25 documented as of this encounter
--- OUTSIDE RECORDS SUMMARY | 2025-04-11 18:26 | XMS_ITS | Clinical Summary ---
Author Organization 299 [facility] Address [address] [place] [address] Phone Care Team Providers Care Administrative Officer Name Role Phone Jessica Smiley MD Primary Care Provider [phone] Encounters Date Type Department Care Team Description 03/08/2025 Lab Requisition [facility] - Main Lab 299 [facility] [place] [address] Jose Zimmerman PA Dysuria from [...] Streptococcus viridans group(A) 03/09/2025 10:[address] [facility] Comment: Susceptibility testing not routinely [...] MICROBIOLOGY - GENERAL ORDER CLIFFORD Final Result [facility] [address] [place] [address], [place] [phone] from Last 3 Months Insurance [employer] [place] [employer] [place] Care Teams Administrative Officer Relationship Specialty Start Date End Date Jessica Smiley MD 2 [facility] , [facility] [address] [facility] Physician Associ D/B/A: [facility] ALMAZ Dickens PCP - General Internal Medicine 03/08/25
--- OUTSIDE RECORDS SUMMARY | 2025-04-11 18:26 | XMS_ITS | Encounter Summary ---
Author Organization [facility] Address [address] [place] [address] Care Team Providers Care Treating Plant Operator Name Role Phone Jessica Smiley MD Primary Care Provider [phone] Encounter Details Date Type Department Care Team (Late st Contact Info) Description 03/25/2024 Lab Requisition [facility] - Main Lab [address] [place] [address] Maddie Campbell MD [address] [phone] Other abnormal findings in urine Social History [...] beta-hemolytic Group B(A) 03/27/2024 1:13 PM EST [facility] ([facility] Comment: Susceptibility testing is not routinely [...] MICROBIOLOGY - G ENERAL ORDERABLES Final Result [facility] ([facility]) [facility] [address] [place] [address], documented in this encounter Visit Diagnoses Diagnosis Other abnormal findings in urine documented in this encounter Care Teams Treating Plant Operator Relationship Specialty Start Date End Date Jessica Smiley MD 2 [facility] , [address] Physician Associ D/B/A: [facility] [place] PCP - General Internal Medicine 03/08/25 documented as of this encounter
--- OUTSIDE RECORDS SUMMARY | 2025-04-11 18:26 | XMS_ITS | Patient Health Record ---
Author Organization [facility] Address [address] [place] [address] Care Team Providers Care Content Creation Manager Name Role Phone Codey MEI, Jesus Primary Care Provider Julio Leo [phone] Allergies Allergen (clinical drug ingredient) Drug/Non Drug Allergy documented on EMR Reaction Allergy Type Onset Date Status anti fungal medicati on (uncoded) Unknown Allergy Active Reason For Referral No Information Medications Medication SIG (Take, Route, Frequency, Duration) Notes Start Date End Date Status Atorvastatin Calcium 10 MG Tablet 1 tablet Orally Once a day Active ProAir HFA 108 (90 Base) MCG/ACT Aerosol Solution 2 puffs as needed Inhalation prn Active Vitamin D3 1000 UNIT Capsule 1 capsule Orally Once a day Active Lisinopril 5 MG Tablet 1 tablet Orally O nce a day Active Social History Tobacco Use: Social History Observation Description Date Details (start date - stop date) Never Smoker NA - NA Social History Drugs/Alcohol: Social Info Question Answer Notes Alcohol Screen Did you have a drink containing alcohol in the past year? No Points 0 Interpretation Negative Tobacco Use: Social Info Question Answer Notes Tobacco Use/Smoking Patient is a nonsmoker Additional Details Category Social Info Options Details Miscellaneous: Marital status: Occupation: Retired Section Notes: Nonsmoker; no sig alcohol. She is originally [place] [facility] [place] Problems Problem Type SNOMED Code ICD Code Onset Dates Problem Status W/U Status Risk Notes Problem Screening for malignant neoplasm of colon (068611299) Encounter for screening for malignant neoplasm of colon (Z12.11) Active confirmed Problem Pre-procedure evaluation check (671944585) Pre-procedural examination (Z01.818) Active confirmed Plan Of Treatment Pending Test Test Name Order Date GI BIOPSY 02/08/2018 Future Test Test Name Order Date COLONOSCOPY 11/11/2017 Insurance Providers Payer Name Payer Address Payer Phone Subscriber Number Group Number Insured Name Patient Relationship to Insured Coverage Start Date Coverage End Date [facility] [address] [address] [place], [place] [id number] [phone] [id number] SULEIMAN BRICE Self - patient is the insured Medical (General) History Medical History History ICD Code Denies IA,DM,CVA,renal disease Hypertension Hyperlipidemia Migraine headaches Asthma--prn inhaer Surgical History Surgery Date(Month/Year) Tubal ligation
--- OUTSIDE RECORDS SUMMARY | 2025-04-11 18:26 | XMS_ITS | Patient Health Record ---
Author Organization [facility] Address [address] [facility] [address] [place] [address] Care Team Providers Care Crop Duster Helper Name Role Phone Geetha Acosta Unavailable [phone] Reason For Referral No Information Problems Problem Type SNOMED Code ICD Code Onset Dates Problem Status W/U Status Risk Notes Problem Asthma (disorder) (754200916) Asthma, unspecified, unspecified status (493.90) Active confirmed Major Problem Female genital organ symptoms (432674345) Other specified symptom associated with female genital organs (625.8) Active confirmed Major Problem Osteoarthritis (550861800) Osteoarthrosis, unspecified whether generalized or localized, unspecified site (715.90) Active confirmed Major Plan Of Treatment No Information Insurance Providers Payer Name Payer Address Payer Phone Subscriber Number Group Number Insured Name Patient Relationship to Insured Coverage Start Date Coverage End Date [facility] [address] [address] [place] [address] [id number] ALEJANDRA ISSULEIMAN Self - patient is the insured
== END 2025-04-11 15:18 | disposition home or self-care (01) ==
LOC: HO.HWS 14:34
PROVIDERS: PCP Internal Medicine; Visit Provider Advanced Practice Midwife
DX: N90.89 Other specified noninflammatory disorders of vulva and perineum (principal)
CPT/HCPCS: 99213

== ENCOUNTER 2025-05-16 12:50 | Outpatient (AMB) | payer MEDICARE, MEDICAID, SELFPAY ==
--- NOTE | 2025-05-16 13:04 | MHC.OFFVIS ---
Vital Signs 05/16/25 13:09 Height 5 ft 4 in Weight 167 lb 12.348 oz BMI 28.8 BP 120/76 Blood Pressure Location Rt brachial Position Sitting Pulse 67 Pulse Source Pulse Oximeter Pulse Oximetry (%) 98 Oxygen Delivery Method Room Air Intake Visit Reasons: 3months Intake Note: Patient is here for joint pain. Accompanied by: Self / Same As Patient Allergies Iodinated Contrast Media Allergy (Intermediate, Verified 05/16/25 13:05) Hives ezetimibe (Zetia) Adverse Reaction (Intermediate, Verified 05/16/25 13:05) ? memory loss ? rosuvastatin (From Crestor) Adverse Reaction (Intermediate, Verified 05/16/25 13:05) Muscle cramps Lamisil Allergy (Mild, Uncoded 04/03/25 15:33) Rash Simvastatin Adverse Reaction (Intermediate, Uncoded 04/03/25 15:33) myalgias HPI HPI 3months: Details: She is having pain in her wrists. She is busy cooking and cleaning throughout the day. She completed occupational therapy but has not been compliant with doing all the exercises. She says she does some of the exercises. She is no longer having knee pain. [facility] Medical History Personal history of COVID-19 (10/21/23) Seasonal allergies Asthma PMB (postmenopausal bleeding) Uterine prolapse Hyperparathyroidism Productive cough URI (upper respiratory infection) Polyuria B12 deficiency Hypovitaminosis D Proteinuria Hypertriglyceridemia Impaired glucose tolerance Surgical History Hx of colonoscopy Hx of tubal ligation (1989) Family History Father Arthritis Mother No problems noted. Social History Household Members: Spouse Housing: House Are you a primary health care liaison to a significant other at home: No Do you presently have visiting nurse or other home services: No Alcohol intake: never Comment: aware of trip hazard Patient Tobacco Use Status: Never used Tobacco e-Cigarette/Vaping Use: Never Used Second Hand Smoke Exposure: No service: No Current occupational status: unemployed Cognitive needs: No Hearing needs: No Vision needs: Yes Female Reproductive History Menstrual Age of Menarche: 12 Physical Exam Vital Signs: Last Vital Signs Pulse 67 05/16/25 13:09 BP 120/76 05/16/25 13:09 Pulse Ox 98 05/16/25 13:09 Oxygen Delivery Method Room Air 05/16/25 13:09 BMI result Body Mass Index 28.8 Const Other: General: Comfortable CVS: RRR Respiratory: clear to auscultation bilaterally. Good respiratory effort Skin: No lesions seen MSK: Dupuytren's contractures present right worse than left. Right hand palmar aspect nodule present on flexor tendon. She is able to make a fist. Good appellate conferee strength. tender to palpate bilateral CMCs with squaring present. No synovitis. Heberden nodes and Carola's nodes present. Assessment & Plan Assessment & Plan (1) Osteoarthritis of hands, bilateral: Comment: Clinical diagnosis. Discussed diagnosis, natural course and management. She is afraid of taking medications. She agreed to try Voltaren gel OTC that she has at home. Code(s): M19.041 - Primary osteoarthritis, right hand; M19.042 - Primary osteoarthritis, left hand Category: Medical Plan: Discussed importance of compliance of OT exercises at least 15 minutes daily. I recommend that she start using exercise ball for appellate conferee strengthening Bilateral CMC splints prescribed Try topical diclofenac 1% applied to affected area every 4-6 hours as needed for pain relief Return to clinic in 3-4 months (2) Dupuytren contracture of both hands: Comment: Bilateral. Code(s): M72.0 - Palmar fascial fibromatosis [Dupuytren] Category: Medical Plan: Discussed importance of compliance of OT exercises for hand function (3) Localized osteoarthritis of knees, bilateral: Comment: Bilateral. Pain has now resolved. Right knee x-ray reveals mild degenerative arthritis. Code(s): M17.0 - Bilateral primary osteoarthritis of knee Category: Medical Plan: Monitor clinically Medications: New arm brace (Wrist Brace) As directed. bilateral cmc splints Dx: osteoarthritis CMC 2 ea 0RF Coding Level of Care Code Est Pt Level 3 (01518) Add On Problem Visit Only Diagnoses Osteoarthritis of hands, bilateral M19.041; M19.042 Dupuytren contracture of both hands M72.0 Localized osteoarthritis of knees, bilateral M17.0
[2025-05-16 13:09] VITALS: BP 120/76; PULSE 67; O2SAT 98; BMI 28.8
--- OUTSIDE RECORDS SUMMARY | 2025-05-16 16:42 | XMS_ITS | Clinical Summary ---
Author Organization [facility] Address [address] [place] [address] Phone Care Team Providers Care Wool Shearer Name Role Phone Jessica Stanton MD Primary Care Provider [phone] Allergies Active Allergy Reactions Criticality Noted Date [...] 2 Active Cholecalciferol (Vitamin D3) 50 MCG (1999 UT) tabletIndicatio ns:Vitamin D deficiency, not otherwise specified Take 2,000 Units by mouth 1 (one) time each day 30 tablet 11 5 03/21/20 26 Active losartan (COZAAR) 25 MG tablet Take 25 mg by mouth 1 (one) time each day 5 Active Active Problems Problem Noted Date [...] Office Visit [facility] [address] [phone] Morena Pimentel ARNP Chronic kidney disease, stage 2 (mild) (Primary Dx); Hypertension; Vitamin D deficiency, not otherwise specified 03/21/2025 Orders Only [facility] [address] [id number] Morena Pimentel ARNP Vitamin D deficiency, not otherwise specified (Primary Dx) 03/20/2025 Documentation Only [facility] [address] [phone] Kristal Crawford MA from Last 3 Months [...] Office Visit [facility] [employer] [facility] [employer] [facility] [address] [address] Morena Pimentel ARNP [address] [address] Health Maintenance Due Date Last [...] Creatinine, Ur 70.0 Not Estab. mg/dL [facility] Protein, Ur 21.8 Not Estab. mg/dL [facility] [place] Urine Protein/Creati nine Ratio 311(H) 0 - 200 mg/g creat [facility] [place] Urine Urine specimen obtained by clean catch procedure / Unknown 03/20/2025 2:43 PM EST 03/20/2025 [facility] LAB URINE ORDERABLES Final Result Performing Organization Address City/[facility]/ZIP Co de Phone Number [email or web address] [place] [address] [place] [address] * (ABNORMAL) Urine Albumin / Creatinine Ratio (03/20/2025 2:43 PM EST) Pathologist [facility] Albumin, Urine 91.5 Not Estab. ug/mL [facility] Albumin/Creatin ine Ratio 131(H) 0 - 29 mg/g creat [facility] [place] Comment: Normal: 0 - 29 Moderately increased: 30 - 300 Severely increased: >300 Urine Urine specimen obtained by clean catch procedure / Unknown 03/20/2025 2:43 PM EST 03/20/2025 [facility] LAB URINE ORDERABLES Final Result Performing Organization Address City/[facility]/ZIP Co de Phone Number [email or web address] [place] [address] [place] [address] * (ABNORMAL) Vitamin D 25 hydroxy (03/20/2025 2:43 PM EST) Pathologist [facility] Vitamin D, 25-OH, Total 25.2(L) 30.0 - 100.0 ng/mL [facility] [place] Comment: Vitamin D deficiency has been defined by the [place] of Medicine and an Endocrine Society practice guideline as a level of serum 25-OH vitamin D less than 20 ng/mL (1,2). The Endocrine Society went on to further define vitamin D insufficiency as a level between 21 and 29 ng/mL (2). 1. IOM ([place] of Medicine). 2010. Dietary reference intakes for calcium and D. [place]: The National Academies Press. 2. Silverio MF, Carmen BALL, Art CASTILLO, et al. Evaluation, treatment, and prevention of vitamin D deficiency: an Endocrine Society clinical practice guideline. JCEM. 2010; 96(7):1911-30. Blood Venous blood / Unknown 03/20/2025 2:43 PM EST 03/20/2025 [facility] LAB BLOOD ORDERABLES Final Result [facility] [place] [address] [place] [address] * CBC and differential (03/20/2025 2:43 PM EST) WBC 6.8 3.4 - 10.8 x10E3/uL [facility] [place] RBC 4.55 3.77 - 5.28 x10E6/uL [facility] [place] Hemoglobin 12.8 11.1 - 15.9 g/dL [facility] [place] Hematocrit 40.4 34.0 - 46.6 % [facility] MCV 89 79 - 97 fL [facility] [place] MCH 28.1 26.6 - 33.0 pg [facility] [place] MCHC 31.7 31.5 - 35.7 g/dL [facility] RDW 13.9 11.7 - 15.4 % [facility] Platelets 235 150 - 450 x10E3/uL [facility] Neutrophils Relative 56 Not Estab. % [facility] Lymphocytes Relative 31 Not Estab. % [facility] Monocytes 7 Not Estab. % [facility] Eosinophils Relative 4 Not Estab. % [facility] Basophils Relative 2 Not Estab. % [facility] Neutrophils Absolute 3.9 1.4 - 7.0 x10E3/uL [facility] Lymphocytes Absolute 2.1 0.7 - 3.1 x10E3/uL [facility] Monocytes Absolute 0.5 0.1 - 0.9 x10E3/uL [facility] Eosinophils Absolute 0.3 0.0 - 0.4 x10E3/uL [facility] Basophils Absolute 0.1 0.0 - 0.2 x10E3/uL [facility] Immature Granulocytes 0 Not Estab. % [facility] Immature Grans (Absolute) 0.0 0.0 - 0.1 x10E3/uL [facility] [place] Blood Venous blood / Unknown 03/20/2025 2:43 PM EST 03/20/2025 [facility] Final Result Performing Organization Address City/[facility]/ZIP Co de Phone Number [facility] [place] [address] [place] [address] * PTH, intact (03/20/2025 2:43 PM EST) PTH 28 15 - 65 pg/mL [facility] [place] Blood Venous blood / Unknown 03/20/2025 2:43 PM EST 03/20/2025 [facility] LAB BLOOD ORDERABLES Final Result [facility] [place] [address] [place] [address] * Renal function panel (03/20/2025 2:43 PM EST) Glucose 83 70 - 99 mg/dL [facility] BUN 22 8 - 27 mg/dL [facility] Creatinine 0.80 0.57 - 1.00 mg/dL [facility] [place] eGFR CKD-EPI CR 2020 79 >59 mL/min/1.7 3 [facility] BUN/Creatinine Ratio 28 12 - 28 [facility] Sodium 140 134 - 144 mmol/L [facility] Potassium 4.6 3.5 - 5.2 mmol/L [facility] Chloride 104 96 - 106 mmol/L [facility] Bicarbonate (CO2) 22 20 - 29 mmol/L [facility] Calcium 9.9 8.7 - 10.3 mg/dL [facility] Albumin 4.3 3.9 - 4.9 g/dL [facility] Phosphorus 3.3 3.0 - 4.3 mg/dL [facility] Blood Venous blood / Unknown 03/20/2025 2:43 PM EST 03/20/2025 [facility] LAB BLOOD ORDERABLES Final Result [facility] [place] [address] [place] [address] from Last 3 Months Insurance [facility] Medicaid [place] Care Teams Wool Shearer Relationship Specialty Start Date End Date Jessica Stanton MD [address] [place] [address] PCP - General Internal Medicine 07/24/20
--- OUTSIDE RECORDS SUMMARY | 2025-05-16 16:42 | XMS_ITS | Patient Health Record ---
Author Organization [facility] Address [address] [place] [address] Care Team Providers Care Intake Rn Name Role Phone Geetha Acosta Unavailable [phone] Reason For Referral No Information Problems Problem Type SNOMED Code ICD Code Onset Dates Problem Status W/U Status Risk Notes Problem Asthma (disorder) (702289561) Asthma, unspecified, unspecified status (493.90) Active confirmed Major Problem Female genital organ symptoms (366881831) Other specified symptom associated with female genital organs (625.8) Active confirmed Major Problem Osteoarthritis (474403836) Osteoarthrosis, unspecified whether generalized or localized, unspecified site (715.90) Active confirmed Major Plan Of Treatment No Information Insurance Providers Payer Name Payer Address Payer Phone Subscriber Number Group Number Insured Name Patient Relationship to Insured Coverage Start Date Coverage End Date [facility] [address] [address] [place] [address] [id number] ALEJANDRA ISSULEIMAN Self - patient is the insured
--- OUTSIDE RECORDS SUMMARY | 2025-05-16 16:43 | XMS_ITS | Patient Health Record ---
Author Organization [facility] Address [address] [place] [address] Care Team Providers Care Lighting Adviser Name Role Phone Codey MEI, Jesus Primary Care Provider Julio Leo [phone] Allergies Allergen (clinical drug ingredient) Drug/Non Drug [...] sig alcohol. She is originally from the [facility]. Problems Problem Type SNOMED Code ICD Code Onset Dates Problem Status W/U Status Risk Notes Problem Screening for malignant neoplasm of colon (626373315) Encounter for screening for malignant neoplasm of colon (Z12.11) Active confirmed Problem Pre-procedure evaluation check (454168672) Pre-procedural examination (Z01.818) Active confirmed Plan Of Treatment Pending Test Test Name Order Date GI BIOPSY 02/08/2018 Future Test Test Name Order Date COLONOSCOPY 11/11/2017 Insurance Providers Payer Name Payer Address Payer Phone Subscriber Number Group Number Insured Name Patient Relationship to Insured Coverage Start Date Coverage End Date [facility] [address] [address] [place], [place] [id number] [phone] [id number] SULEIMAN BRICE Self - patient is the insured Medical (General) History Medical History History ICD Code Denies [place],DM,CVA,renal disease Hypertension Hyperlipidemia Migraine headaches Asthma--prn inhaer Surgical History Surgery Date(Month/Year) Tubal ligation
--- OUTSIDE RECORDS SUMMARY | 2025-05-16 16:43 | XMS_ITS | Encounter Summary ---
Author Organization [facility] Address [address] [place] [address] Care Team Providers Care Shoe Puller Name Role Phone Jessica Smiley MD Primary Care Provider [phone] Encounter Details Date Type Department Care Team (Late st Contact Info) Description 03/25/2024 Lab Requisition [facility] - Main Lab [address] [place] [address] Maddie Campbell MD [address] [id number] Other abnormal findings in urine Social History [...] beta-hemolytic Group B(A) 03/27/2024 1:13 PM EST [facility] Comment: Susceptibility testing is [...] MICROBIOLOGY - G ENERAL ORDERABLES Final Result [facility] ([facility]) [facility] [address] [place] [address], documented in this encounter Visit Diagnoses Diagnosis Other abnormal findings in urine documented in this encounter Care Teams Shoe Puller Relationship Specialty Start Date End Date Jessica Smiley MD 2 [facility] , [address] Physician Associ D/B/A: [facility] [place] PCP - General Internal Medicine 03/08/25 documented as of this encounter
--- OUTSIDE RECORDS SUMMARY | 2025-05-16 16:43 | XMS_ITS | Clinical Summary ---
Author Organization [address] [facility] Address [address] [place] [address] Phone Care Team Providers Care Clinical Services Specialist Name Role Phone Jessica Smiley MD Primary Care Provider [phone] Encounters Date Type Department Care Team Description 03/08/[address] [facility] - Main Lab [address] [facility] [place] [address] Jose Zimmerman PA Dysuria from [...] Streptococcus viridans group(A) 03/09/2025 10:58 AM EDT [facility] Comment: Susceptibility testing not routinely [...] MICROBIOLOGY - GENERAL ORDER CLIFFORD Final Result [facility] [address] [place] [address], [place] [phone] from Last 3 Months Insurance [employer] [place]ICA[place] - [place] Care Teams Clinical Services Specialist Relationship Specialty Start Date End Date Jessica Smiley MD 2 [facility] , [facility] [address] [facility] Physician Associ D/B/A: [facility] [place] PCP - General Internal Medicine 03/08/25
--- OUTSIDE RECORDS SUMMARY | 2025-05-16 16:43 | XMS_ITS | Encounter Summary ---
Author Organization [facility] Address [address] [place] [address] Care Team Providers Care Specialist Managers Name Role Phone Jessica Smiley MD Primary Care Provider [phone] Encounter Details Date Type Department Care Team (Late st Contact Info) Description 03/08/2025 Lab Requisition [facility] - Main Lab [address] [facility] [place] [facility] [place] [address] Jose Zimmerman PA [address] [facility] [address] [place] [address] Dysuria Social History Tobacco Use Types Packs/Day [...] Streptococcus viridans group(A) 03/09/2025 10:58 AM EDT [facility] Comment: Susceptibility testing not [...] - GENERAL ORDER CLIFFORD Final Result [facility] [address] [place] [address], [place] [phone] documented in this encounter Visit Diagnoses Diagnosis Dysuria documented in this encounter Care Teams Specialist Managers Relationship Specialty Start Date End Date Jessica Smiley MD [address] [facility] [address], [address] [facility] Physician Associ D/B/A: [facility] [place] PCP - General Internal Medicine 03/08/25 documented as of this encounter
== END 2025-05-16 13:43 | disposition home or self-care (01) ==
LOC: HO.RHES 12:51
PROVIDERS: PCP Internal Medicine; Visit Provider Internal Medicine Rheumatology
DX: M19.041 Primary osteoarthritis, right hand (principal); M19.042 Primary osteoarthritis, left hand; M72.0 Palmar fascial fibromatosis [Dupuytren]; M17.0 Bilateral primary osteoarthritis of knee
CPT/HCPCS: 99213; G2211

== ENCOUNTER → 2025-05-16 12:50 | Outpatient (BNVA) | payer MEDICARE, MEDICAID, SELFPAY | PROVIDERS: PCP Internal Medicine; Visit Provider Internal Medicine Rheumatology | DX: M19.041 Primary osteoarthritis, right hand (principal); M19.042 Primary osteoarthritis, left hand; M72.0 Palmar fascial fibromatosis [Dupuytren]; M17.0 Bilateral primary osteoarthritis of knee | CPT/HCPCS: 99212 ==